=== PATIENT | male | born 1965 | race Caucasian/White ===

== ENCOUNTER 2017-09-07 13:34 | Emergency (ER) | payer OTHER ==
[2017-09-07 13:39] VITALS: BP 161/106
[2017-09-07] MEDS ORDERED: OXYCODONE-ACETAMINOPHEN 5-325 MG TABLET PO ONE (15:14)
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
--- NOTE | 2017-09-07 15:53 | RADIOLOGY REPORT (SQ) ---
EXAM DESCRIPTION: SHOULDER RIGHT 2 OR MORE VIEWS COMPLETED DATE/TIME: 09/07/2017 3:21 pm REASON FOR STUDY: pain and injury COMPARISON: None. NUMBER OF VIEWS: Three views. TECHNIQUE: Internal rotation, external rotation, and Y view images acquired of the right shoulder. LIMITATIONS: None. FINDINGS: MINERALIZATION: Normal. BONES: No acute fracture or dislocation. No worrisome bone lesions. JOINTS: No dislocation. Mild degenerative changes involving the AC joint. VISUALIZED LUNGS AND RIBS: Old right 4th rib fracture posteriorly. . SOFT TISSUES: No radiopaque foreign body. OTHER: No other significant finding. IMPRESSION: Mild degenerative changes otherwise negative right shoulder. TECHNICAL DOCUMENTATION: JOB ID: [id number] [employer]- All Rights Reserved Reading location - IP/workstation name: [email or web address]
== END 2017-09-07 16:27 | disposition home or self-care (01) ==
LOC: ER 13:34
DX: S49.92XA Unspecified injury of left shoulder and upper arm, initial encounter (principal); M25.511 Pain in right shoulder; V19.3XXA Pedal cyclist (driver) (passenger) injured in unspecified nontraffic accident, initial encounter; Y93.55 Activity, bike riding; Y92.009 Unspecified place in unspecified non-institutional (private) residence as the place of occurrence of the external cause; I10 Essential (primary) hypertension; Z87.891 Personal history of nicotine dependence
CPT/HCPCS: 99283; L3650

== ENCOUNTER 2018-11-19 23:07 | Emergency (ER) | payer OTHER ==
[2018-11-19 23:21] VITALS: BP 154/85
== END 2018-11-20 02:06 | disposition left against medical advice (07) ==
LOC: ER 23:07
DX: Z53.21 Procedure and treatment not carried out due to patient leaving prior to being seen by health care provider (principal)

== ENCOUNTER 2019-09-05 08:49 | Observation (INO) | payer OTHER ==
[2019-09-05] MEDS ORDERED: METOPROLOL TARTRATE PF/INJ 5 MG/5 ML SDV IV ONE (09:49)
[2019-09-05 10:01] LABS: ABSOLUTE BASOPHILS # (AUTO) 0.1 10^3/uL (0.0-0.2); ABSOLUTE EOSINOPHILS # (AUTO) 0.5 10^3/uL (0.0-0.6); ABSOLUTE MONOCYTES (AUTO) 0.6 10^3/uL (0.1-1.4); ABSOLUTE NEUT (AUTO) 4.9 10^3/uL (1.7-8.2); BASOPHILS % (AUTO) 0.9 % (0-2); HEMATOCRIT 46.9 % (37.9-51.0); HEMOGLOBIN 16.5 g/dL (13.5-17.0); LYMPHOCYTES % (AUTO) 33.2 % (13-45); MEAN CORPUSCULAR HEMOGLOBIN 31.6 pg (27.0-33.4); MEAN CORPUSCULAR HGB CONC 35.2 g/dL (32.0-36.0); MEAN CORPUSCULAR VOLUME 90 fl (80-97); MONOCYTES % (AUTO) 7.1 % (3-13); PLATELET COUNT 208 10^3/uL (150-450); RED BLOOD COUNT 5.23 10^6/uL (4.35-5.55); RED CELL DISTRIBUTION WIDTH 14.6 % (11.5-14.0); SEGMENTED NEUTROPHILS % (AUTO) 53.8 % (42-78); TOTAL CELLS COUNTED % (AUTO) 100 %; WHITE BLOOD COUNT 9.2 10^3/uL (4.0-10.5)
[2019-09-05 10:09] LABS: ALBUMIN 4.3 g/dL (3.5-5.0); ALKALINE PHOSPHATASE 57 U/L (38-126); ANION GAP 9 (5-19); ASPARTATE AMINO TRANSFERASE 42 U/L (17-59); BILIRUBIN,DIRECT 0.1 mg/dL (0.0-0.4); BILIRUBIN,TOTAL 0.5 mg/dL (0.2-1.3); BLOOD UREA NITROGEN 16 mg/dL (7-20); CALCIUM 9.5 mg/dL (8.4-10.2); CARBON DIOXIDE 24 mmol/L (22-30); CHLORIDE 106 mmol/L (98-107); CREATINE KINASE 97 U/L (55-170); GLUCOSE 123 mg/dL (75-110); POTASSIUM 4.1 mmol/L (3.6-5.0); TOTAL PROTEIN 7.1 g/dL (6.3-8.2)
--- NOTE | 2019-09-05 10:19 | RADIOLOGY REPORT (SQ) ---
EXAM DESCRIPTION: CHEST SINGLE VIEW COMPLETED DATE/TIME: 09/05/2019 10:06 am REASON FOR STUDY: cp COMPARISON: AP view of the chest from 06/25/2016. EXAM PARAMETERS: NUMBER OF VIEWS: One view. TECHNIQUE: An AP view of the chest was obtained. RADIATION DOSE: NA LIMITATIONS: None. FINDINGS: LUNGS AND PLEURA: No consolidation, pleural effusion or pneumothorax. MEDIASTINUM AND HILAR STRUCTURES: No mediastinal or hilar contour abnormality. HEART AND VASCULAR STRUCTURES: The cardiac silhouette is borderline enlarged. The pulmonary vasculat ure is within normal limits. BONES: No acute findings. HARDWARE: None in the chest. OTHER: No other finding. IMPRESSION: Low inspiratory lung volumes without a superimposed acute cardiopulmonary process. TECHNICAL DOCUMENTATION: JOB ID: [id number] [employer]- All Rights Reserved Reading location - IP/workstation name: [email or web address]
[2019-09-05 10:24] LABS: CREATINE KINASE MB 1.49 ng/mL (<4.55)
[2019-09-05 10:26] LABS: TROPONIN I < 0.012 ng/mL
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
[2019-09-05] MEDS ORDERED: ONDANSETRON 4 MG TAB.RAPDIS PO PRN (12:30)
[2019-09-05] MEDS ORDERED: ACETAMINOPHEN 325 MG TABLET PO PRN (12:30)
[2019-09-05] MEDS ORDERED: MAG HYDROX/AL HYDROX/SIMETH SUSP 30 ML UDCUP PO PRN (12:30)
[2019-09-05] MEDS ORDERED: ONDANSETRON HCL INJ/PF 4 MG/2 ML SDV IV PRN (12:30)
[2019-09-05 13:13] LABS: INTERNATIONAL RATION (INR) 0.97; PROTHROMBIN TIME 12.9 SEC (11.4-15.4)
--- NOTE | 2019-09-05 13:37 | RADIOLOGY REPORT (SQ) ---
EXAM DESCRIPTION: CT HEAD WITHOUT COMPLETED DATE/TIME: 09/05/2019 12:59 pm REASON FOR STUDY: headache, afib COMPARISON: 06/25/2019 TECHNIQUE: Axial images acquired through the brain without intravenous contrast. Images reviewed wi th bone, brain and subdural windows. Additional sagittal and coronal reconstructions were generated. Images stored on PACS. All CT scanners at this facility use dose modulation, iterative reconstruction, and/or weight based d osing when appropriate to reduce radiation dose to as low as reasonably achievable (ALARA). [facility]: Dose Right [facility]: CareDose [facility]: Dose Right [facility]: Teradose 4D [facility]: Smart [employer] RADIATION DOSE: CT Rad equipment meets quality standard of care and radiation dose reduction techniq ues were employed. CTDIvol: 53.2 mGy. DLP: 1017 mGy-cm. mGy. LIMITATIONS: None. FINDINGS: VENTRICLES: Normal size and contour. CEREBRUM: No masses. No hemorrhage. No midline shift. No evidence for acute infarction. Normal gra y/white matter differentiation. No areas of low density in the white matter. CEREBELLUM: No masses. No hemorrhage. No alteration of density. No evidence for acute infarction. EXTRAAXIAL SPACES: No fluid collections. No masses. ORBITS AND GLOBE: No intra- or extraconal masses. Normal contour of globe without masses. CALVARIUM: No fracture. PARANASAL SINUSES: No fluid or mucosal thickening. SOFT TISSUES: No mass or hematoma. OTHER: No other significant finding. IMPRESSION: NORMAL BRAIN CT WITHOUT CONTRAST. EVIDENCE OF ACUTE STROKE: NO. COMMENT: Quality ID # [id number]: Final reports with documentation of one or more dose reduction techniques (e.g., Automated exposure control, adjustment of the mA and/or kV according to patient size, use of iterative reconstruction technique) TECHNICAL DOCUMENTATION: JOB ID: [id number] 2010 [employer]- All Rights Reserved Reading location - IP/workstation name: [email or web address]
[2019-09-05] MEDS: METOPROLOL SUCCINATE 25 MG TAB.SR.24H PO SCH ×2 (13:56→21:20)
[2019-09-05] MEDS: ENOXAPARIN SODIUM INJ 40 MG/0.4 ML DISP.SYRIN SUBCUT SCH (13:56)
[2019-09-05] MEDS: FAMOTIDINE 20 MG TABLET PO SCH ×2 (13:56→21:21)
[2019-09-05 17:30] LABS: CREATINE KINASE MB 1.24 ng/mL (<4.55); TROPONIN I < 0.012 ng/mL
--- NOTE | 2019-09-05 18:11 | EKG REPORT ---
SEVERITY:- ABNORMAL ECG - ATRIAL FIBRILLATION, V-RATE 85-139 CONSIDER ANTEROSEPTAL INFARCT BORDERLINE T ABNORMALITIES, INFERIOR LEADS : Confirmed by: Roma George MD 05-Sep-2019 18:10:01
--- NOTE | 2019-09-05 18:11 | EKG REPORT ---
SEVERITY:- ABNORMAL ECG - ATRIAL FIBRILLATION, V-RATE 66-94 CONSIDER ANTEROSEPTAL INFARCT : Confirmed by: Roma George MD 05-Sep-2019 18:09:54
--- NOTE | 2019-09-05 19:10 | PDOC CONSULTATION ---
Consultation-Blank Consultation: CARDIOLOGY CONSULTATION by Dr. Roma George on 09/05/2019. Patient seen at 4 PM. 60 minutes spent as patient more than 50% of time spent in direct patient care. 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 CONSULT REQUESTING provider: Mr. Armando rouse: PAC, [facility] hospitalist physician. HISTORY OF PRESENT ILLNESS: Current Medications Generic Name Dose Route Start Last Admin Trade Name Freq PRN Reason Stop Dose Admin Acetaminophen 650 mg 09/05/19 12:30 Tylenol 325 Mg Tablet PO 10/05/19 12:29 Q4HP PRN FOR HEADACHE OR PAIN Al Hydrox/Mg Hydrox/Simethicone 30 ml 09/05/19 12:30 Maalox Plus Susp 30 Udcup PO 10/05/19 12:29 Q6HP PRN HEARTBURN Atorvastatin Calcium 40 mg 09/05/19 22:00 09/05/19 21:21 Lipitor 40 Mg Tablet PO 10/05/19 21:59 40 mg QHS CODY Administration Docusate Sodium 100 mg 09/06/19 10:00 Colace 100 Mg Capsule PO 10/06/19 09:59 DAILY CODY Enoxaparin Sodium 40 mg 09/05/19 12:45 09/05/19 13:56 Lovenox Inj 40 Mg/0.4 Ml Disp.Syrin SUBCUT 10/05/19 12:44 40 mg DAILY CODY Administration Famotidine 20 mg 09/05/19 12:45 09/05/19 21:21 Pepcid 20 Mg Tablet PO 10/05/19 12:44 20 mg Q12 CODY Administration Lorazepam 1 mg 09/05/19 21:14 09/05/19 21:21 Ativan 1 Mg Tablet PO 09/12/19 21:13 1 mg Q4HP PRN Administration FOR ANXIETY Metoprolol Succinate 25 mg 09/05/19 12:45 09/05/19 21:20 Toprol Xl 25 Mg Tab.Sr PO 10/05/19 12:44 25 mg Q12 CODY Administration Ondansetron HCl 4 mg 09/05/19 12:30 Zofran Odt 4 Mg Tablet PO 10/05/19 12:29 Q6HP PRN FOR NAUSEA/VOMITING Ondansetron HCl 4 mg 09/05/19 12:30 Zofran Inj/Pf 4 Mg/2 Ml Sdv IV 10/05/19 12:29 Q6HP PRN FOR NAUSEA/VOMITING Oxycodone/Acetaminophen 1 tab 09/05/19 12:30 Percocet 5-325 Mg Tablet PO 09/12/19 12:29 Q6HP PRN FOR PAIN Discontinued Medications Generic Name Dose Route Start Last Admin Trade Name Freq PRN Reason Stop Dose Admin Metoprolol Tartrate 5 mg 09/05/19 09:49 09/05/19 10:19 Lopressor Inj/Pf 5 Mg/5 Ml Sdv IV 09/05/19 09:50 5 mg NOW ONE Administration PHYSICAL EXAMINATION: The patient is well-built and well-nourished. At present in no acute distress. Selected Entries 09/05/19 17:52 Temperature 98.5 F Temperature Oral Source Pulse Rate [ 97 Right] Respiratory 16 Rate Blood Pressure 160/100 H [Right] Blood Pressure 120 Mean [Right] Blood Pressure Supine Position [Right ] O2 Sat by Pulse 98 Oximetry Oxygen Delivery Room Air Method ( includes room air) HEAD: Is atraumatic normocephalic. EYES: Pupils are equal round regular reactive to light and accommodation. There is no clinical pallor. There is no scleral icterus. External ocular movements are normal. EARS: Tympanic membranes are intact. External auditory canals are clear. NOSE: Nasal mucous membranes are not inflamed. There is no deviated nasal septum. MOUTH: Mucous membranes of mouth are moist. Tongue is moist. There is no ulcers. There is no bleeding from the gums. THROAT: There is no redness of the oropharynx. There is no exudates in the throat. SKIN: There is no petechia or ecchymosis. There is no skin rashes or skin lesions. NECK: Is supple. There is no JVD. Carotids are equal there is no bruits. There is no lymphadenopathy. There is no goiter. There is no accessory muscles of respiration in use. Trachea central. LUNGS: There is diminished air entry and prolonged expiration. On percussion there is hyperresonance. There is scattered rhonchi present. There is no rales or wheezing. There is no chest wall tenderness on palpation. HEART: S1-S2 is heard. S1 is of variable intensity. There is no S3 gallop. There is no S4 gallop. There is systolic murmur left sternal border and the apex, without radiation. There is no murmur of aortic stenosis. Prosthetic aortic valve click heard crisply. There is no aortic regurgitation murmur.. There is no rub. ABDOMEN: Is Nontender. There is no hepatosplenomegaly. Bowel sounds are well heard. EXTREMITIES: Femorals are deep. Femorals are slightly diminished. There is no femoral bruits. There is no pedal edema. There is no DVT or cellulitis. Leg pulses are diminished. There is no cyanosis or clubbing. Capillary refill is normal. There is no calf tenderness. NOVELTY DIPPER: The patient is conscious awake alert oriented x3 with no focal deficits. PSYCHIATRIC: The patient judgment and insight are intact her affect is normal. She shows atrial fibrillation with initially rapid ventricular response. Narrow QRS complexes. No delta waves. Subsequent EKG shows atrial fibrillation with controlled ventricular response. Narrow QRS complexes with no evidence of pr eexcitation. Labs- Entire Visit 09/05/19 09/05/19 09/05/19 09:17 09:17 09:17 WBC 9.2 RBC 5.23 Hgb 16.5 Hct 46.9 MCV 90 MCH 31.6 MCHC 35.2 RDW 14.6 H Plt Count 208 Lymph % (Auto) 33.2 [place] % (Auto) 7.1 Eos % (Auto) 5.0 Baso % (Auto) 0.9 Absolute Neuts (auto) 4.9 Absolute Lymphs (auto) 3.0 Absolute Monos (auto) 0.6 Absolute Eos (auto) 0.5 Absolute Basos (auto) 0.1 Seg Neutrophils % 53.8 PT INR Sodium 139.3 Potassium 4.1 Chloride 106 Carbon Dioxide 24 Anion Gap 9 BUN 16 Creatinine 0.58 Est GFR ( Amer) > 60 Est GFR (MDRD) Non-Af > 60 Glucose 123 H Calcium 9.5 Total Bilirubin 0.5 Direct Bilirubin 0.1 Neonat Total Bilirubin Not Reportable Neonat Direct Bilirubin Not Reportable Neonat Indirect Bili Not Reportable AST 42 ALT 43 Alkaline Phosphatase 57 Creatine Kinase 97 CK-MB (CK-2) 1.49 Troponin I < 0.012 Total Protein 7.1 Albumin 4.3 TSH Urine Color Urine Appearance Urine pH Ur Specific [place] Urine Protein Urine Glucose (UA) Urine Ketones Urine Blood Urine Nitrite Urine Bilirubin Urine Urobilinogen Ur Leukocyte Esterase Urine WBC (Auto) Urine RBC (Auto) Squamous Epi Cells Auto Urine Mucus (Auto) Urine Ascorbic Acid 09/05/19 09/05/19 09/05/19 09:17 09:17 12:19 WBC RBC Hgb Hct MCV MCH MCHC RDW Plt Count Lymph % (Auto) [place] % (Auto) Eos % (Auto) Baso % (Auto) Absolute Neuts (auto) Absolute Lymphs (auto) Absolute Monos (auto) Absolute Eos (auto) Absolute Basos (auto) Seg Neutrophils % PT 12.9 INR 0.97 Sodium Potassium Chloride Carbon Dioxide Anion Gap BUN Creatinine Est GFR ( Amer) Est GFR (MDRD) Non-Af Glucose Calcium Total Bilirubin Direct Bilirubin Neonat Total Bilirubin Neonat Direct Bilirubin Neonat Indirect Bili AST ALT Alkaline Phosphatase Creatine Kinase CK-MB (CK-2) Troponin I < 0.012 Total Protein Albumin TSH 2.58 Urine Color Urine Appearance Urine pH Ur Specific [place] Urine Protein Urine Glucose (UA) Urine Ketones Urine Blood Urine Nitrite Urine Bilirubin Urine Urobilinogen Ur Leukocyte Esterase Urine WBC (Auto) Urine RBC (Auto) Squamous Epi Cells Auto Urine Mucus (Auto) Urine Ascorbic Acid 09/05/19 09/05/19 16:38 17:10 WBC RBC Hgb Hct MCV MCH MCHC RDW Plt Count Lymph % (Auto) [place] % (Auto) Eos % (Auto) Baso % (Auto) Absolute Neuts (auto) Absolute Lymphs (auto) Absolute Monos (auto) Absolute Eos (auto) Absolute Basos (auto) Seg Neutrophils % PT INR Sodium Potassium Chloride Carbon Dioxide Anion Gap BUN Creatinine Est GFR ( Amer) Est GFR (MDRD) Non-Af Glucose Calcium Total Bilirubin Direct Bilirubin Neonat Total Bilirubin Neonat Direct Bilirubin Neonat Indirect Bili AST ALT Alkaline Phosphatase Creatine Kinase CK-MB (CK-2) 1.24 Troponin I < 0.012 Total Protein Albumin TSH Urine Color YELLOW Urine Appearance SLIGHTLY-CLOUDY Urine pH 6.0 Ur Specific [place] 1.021 Urine Protein NEGATIVE Urine Glucose (UA) NEGATIVE Urine Ketones NEGATIVE Urine Blood NEGATIVE Urine Nitrite NEGATIVE Urine Bilirubin NEGATIVE Urine Urobilinogen NEGATIVE Ur Leukocyte Esterase NEGATIVE Urine WBC (Auto) 1 Urine RBC (Auto) 2 Squamous Epi Cells Auto <1 Urine Mucus (Auto) MANY Urine Ascorbic Acid NEGATIVE Chest X-Ray 09/05/19 00:00 IMPRESSION: Low inspiratory lung volumes without a superimposed acute cardiopulmonary process. Head CT 09/05/19 12:44 IMPRESSION: NORMAL BRAIN CT WITHOUT CONTRAST. EVIDENCE OF ACUTE STROKE: NO. Discussed with the patient and the patient's wi the indications and benefits and complications of anticoagulation. Discussed Coumadin versus newer oral anticoagulation agents. The risks of bleeding with both have been discussed. Also have discussed with the Coumadin if the INR should be elevated it can be reversed with fresh frozen plasma and vitamin K. With the newer anticoagulation agents there is no reversal agent. Also have discussed that with newer anticoagulation agent the patient has no dietary restriction and most of the medication that I used will not counteract with it. As opposed to Coumadin where diet adherence is very important and interactions with other medications have all been discussed. Will wait till the patient b lood pressure is well controlled prior to starting Eliquis which the patient has agreed to be on. IMPRESSION/RECOMMENDATION: 1. New onset atrial fibrillation: Continue beta-dewayne. The patient's c orrected Damien vas 2 score is 1 hence chronic anticoagulation indicated. Will start Eliquis once the patient blood pressure is controlled. 2. Hypertension: Blood pressure not very well controlled. Increase antihypertensives. 3. Chest pressure/burning: No acute EKG changes of myocardial ischemia, and cardiac enzymes so far negative. 4. 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 Medications reviewed. Medication regimen and management plan discussed with the attending provider. Medical decision making is of high complexity. 60 minutes spent as patient more than 50% of time spent in direct patient care.
[2019-09-05 20:38] LABS: APPEARANCE,URINE SLIGHTLY-CLOUDY; BILIRUBIN,URINE NEGATIVE (NEGATIVE); COLOR,URINE YELLOW; GLUCOSE, URINE NEGATIVE (NEGATIVE); KETONES,URINE NEGATIVE (NEGATIVE); LEUKOCYTE ESTERASE,URINE NEGATIVE (NEGATIVE); NITRITE,URINE NEGATIVE (NEGATIVE); PROTEIN,URINE NEGATIVE (NEGATIVE); URINE SPECIFIC GRAVITY 1.021; UROBILINOGEN,URINE NEGATIVE mg/dL (<2.0)
[2019-09-05] MEDS: ATORVASTATIN CALCIUM 40 MG TABLET PO SCH (21:21)
[2019-09-05] MEDS: LORAZEPAM 1 MG TABLET PO PRN (21:21)
[2019-09-06] MEDS ORDERED: HYDRALAZINE HCL INJ/PF 20 MG/1 ML SDV IV PRN (00:53)
[2019-09-06] MEDS: LISINOPRIL 10 MG TABLET PO SCH ×2 (01:27→09:42)
[2019-09-06 06:48] LABS: ABSOLUTE EOSINOPHILS # (AUTO) 0.3 10^3/uL (0.0-0.6); ABSOLUTE LYMPHOCYTES (AUTO) 2.6 10^3/uL (0.5-4.7); ABSOLUTE MONOCYTES (AUTO) 0.5 10^3/uL (0.1-1.4); ABSOLUTE NEUT (AUTO) 4.8 10^3/uL (1.7-8.2); BASOPHILS % (AUTO) 0.5 % (0-2); HEMATOCRIT 43.9 % (37.9-51.0); HEMOGLOBIN 15.2 g/dL (13.5-17.0); LYMPHOCYTES % (AUTO) 31.2 % (13-45); MEAN CORPUSCULAR HEMOGLOBIN 31.7 pg (27.0-33.4); MEAN CORPUSCULAR HGB CONC 34.7 g/dL (32.0-36.0); MEAN CORPUSCULAR VOLUME 92 fl (80-97); MONOCYTES % (AUTO) 5.9 % (3-13); PLATELET COUNT 185 10^3/uL (150-450); RED CELL DISTRIBUTION WIDTH 14.7 % (11.5-14.0); SEGMENTED NEUTROPHILS % (AUTO) 58.4 % (42-78); TOTAL CELLS COUNTED % (AUTO) 100 %; WHITE BLOOD COUNT 8.2 10^3/uL (4.0-10.5)
[2019-09-06 07:07] LABS: ANION GAP 9 (5-19); BLOOD UREA NITROGEN 20 mg/dL (7-20); CALCIUM 8.9 mg/dL (8.4-10.2); CARBON DIOXIDE 26 mmol/L (22-30); CHLORIDE 103 mmol/L (98-107); GLUCOSE 107 mg/dL (75-110); POTASSIUM 4.5 mmol/L (3.6-5.0)
[2019-09-06] MEDS ORDERED: METOPROLOL TARTRATE 25 MG TABLET PO ONE (08:52)
[2019-09-06] MEDS: FAMOTIDINE 20 MG TABLET PO SCH ×2 (09:42→22:09)
[2019-09-06] MEDS: DOCUSATE SODIUM 100 MG CAPSULE PO SCH (09:42)
[2019-09-06] MEDS: ENOXAPARIN SODIUM INJ 40 MG/0.4 ML DISP.SYRIN SUBCUT SCH (09:43)
[2019-09-06] MEDS: METOPROLOL TARTRATE 25 MG TABLET PO SCH ×2 (11:12→22:08)
--- NOTE | 2019-09-06 14:53 | PDOC PROGRESS REPORT ---
Subjective Progress Note for:: 09/06/19 Subjective:: This is a 53-year-old male with a prior history of WPW with prior ablation who presented with palpitations. Patient was found to have a new onset atrial fibrillation with RVR. He was given IV metoprolol in the ER. Cardiology was ALSO consulted. No acute event overnight. Upon encounter, patient appears comfortable on room air. He says he feels better this morning. Denies chest pain. He is still in A. fib heart rate running in the low 100s. He was given a dose of p.o. Lopressor 25 mg earlier this morning and did improve down to the 90s. Will start patient on scheduled p.o. Lopressor. Also discussed anticoagulation in length with patient and family on bedside. Discussed benefits of stroke reduction and risk of bleeding. Discussed options including Coumadin and different NOACs. They verbalized they want to do their own research first and do more reading before they give us a final decision about anticoagulation. Reason For Visit: ATRIAL FIB, HISTORY OF [id number], Physical Exam Vital Signs: Temp Pulse Resp BP Pulse Ox 98.0 F 67 16 144/88 H 99 09/06/19 12:00 09/06/19 14:00 09/06/19 12:00 09/06/19 12:00 09/06/19 12:00 Intake & Output 09/05/19 09/06/19 09/07/19 06:59 06:59 06:59 Intake Total 500 Balance 500 Weight 252 lb 13.923 oz General appearance: PRESENT: no acute distress, well-developed, well-nourished Head exam: PRESENT: atraumatic, normocephalic Eye exam: PRESENT: conjunctiva pink, EOMI, PERRLA. ABSENT: scleral icterus Ear exam: PRESENT: normal external ear exam Mouth exam: PRESENT: moist, tongue midline Neck exam: ABSENT: carotid bruit, JVD, lymphadenopathy, thyromegaly Respiratory exam: PRESENT: clear to auscultation garry. ABSENT: rales, rhonchi, wheezes Cardiovascular exam: PRESENT: irregular rhythm, RRR, tachycardia. ABSENT: diastolic murmur, rubs Pulses: PRESENT: normal dorsalis pedis pul GI/Abdominal exam: PRESENT: normal bowel sounds, soft. ABSENT: distended, guarding, mass, organolmegaly, rebound, tenderness Rectal exam: PRESENT: deferred Extremities exam: PRESENT: full ROM. ABSENT: calf tenderness, clubbing, pedal edema Neurological exam: PRESENT: alert, awake, oriented to person, oriented to place, oriented to time, oriented to situation, CN II-XII grossly intact. ABSENT: motor sensory deficit Results Laboratory Results: 09/06/19 05:47 09/06/19 05:47 09/05/19 09/06/19 09/06/19 17:10 05:47 05:47 WBC 8.2 RBC 4.80 Hgb 15.2 Hct 43.9 MCV 92 MCH 31.7 MCHC 34.7 RDW 14.7 H Plt Count 185 Seg Neutrophils % 58.4 Sodium 137.7 Potassium 4.5 Chloride 103 Carbon Dioxide 26 Anion Gap 9 BUN 20 Creatinine 0.74 Est GFR ( Amer) > 60 Glucose 107 Calcium 8.9 Magnesium 2.1 Urine Color YELLOW Urine Appearance SLIGHTLY-CLOUDY Urine pH 6.0 Ur Specific [place] 1.021 Urine Protein NEGATIVE Urine Glucose (UA) NEGATIVE Urine Ketones NEGATIVE Urine Blood NEGATIVE Urine Nitrite NEGATIVE Ur Leukocyte Esterase NEGATIVE Urine WBC (Auto) 1 Urine RBC (Auto) 2 09/05/19 09/05/19 09/05/19 09:17 09:17 12:19 Creatine Kinase 97 CK-MB (CK-2) 1.49 Troponin I < 0.012 < 0.012 09/05/19 16:38 Creatine Kinase CK-MB (CK-2) 1.24 Troponin I < 0.012 Impressions: Chest X-Ray 09/05/19 00:00 IMPRESSION: Low inspiratory lung volumes without a superimposed acute cardiopulmonary process. Head CT 09/05/19 12:44 IMPRESSION: NORMAL BRAIN CT WITHOUT CONTRAST. EVIDENCE OF ACUTE STROKE: NO. Assessment and Plan - Diagnosis (1) Atrial fibrillation with RVR Is this a current diagnosis for this admission?: Yes Plan: Will start patient on scheduled p.o. Lopressor. Also discussed anticoagulation in length with patient and family on bedside. Discussed benefits of stroke reduction and risk of bleeding. Discussed options including Coumadin and different NOACs. They verbalized they want to do their own research first and do more reading before they give us a final decision about anticoagulation. (2) History of Jbhvg-Qahsfhmxp-Hclus (WPW) syndrome Is this a current diagnosis for this admission?: Yes - Time Time Spent with patient: 25-34 minutes
--- NOTE | 2019-09-06 17:06 | EKG REPORT ---
SEVERITY:- ABNORMAL ECG - ATRIAL FIBRILLATION : Confirmed by: Roma George MD 06-Sep-2019 17:05:16
--- NOTE | 2019-09-06 17:06 | EKG REPORT ---
SEVERITY:- ABNORMAL ECG - ATRIAL FIBRILLATION BORDERLINE R WAVE PROGRESSION, ANTERIOR LEADS : Confirmed by: Roma George MD 06-Sep-2019 17:05:09
--- NOTE | 2019-09-06 17:22 | XCELERA REPORT ---
[address] [address] Transthoracic Echocardiogram Report Name: MADDIE WALSH Age: 53 yrs Gender: Male : 1965 [facility]: 09[facility]06/[facility] 03:42 PM Height: 72 in Weight: 252 lb BSA: 2.4 m2 Procedure: A two-dimensional transthoracic echocardiogram with color flow and Doppler was performed. The study was technically difficult with many images being suboptimal in quality. Reason For Study: palpitations, SOB, afib, Dr. Elizabeth aware History: Atrial Fibrillation / SOB. Ordering Physician: CAROLINE MALIK Performed By: Rachana Acosta Interpretation Summary The left ventricle is normal in size. There is mild concentric left ventricular hypertrophy. Left ventricular systolic function is normal. LV diastolic function could not be adequately assessed due to atrial fibrilation. LV EF is Greater than 60% There is no thrombus. No ASD ,VSD or PFO seen. The right ventricle is normal in size and function. The right atrium is normal. The left atrium is borderline dilated. The thickening of interatrial septum suggests lipomatous hypertrophy. There is no evidence of mitral valve prolapse. There is no vegetation seen on the mitral valve. There is no mitral valve stenosis. There is a trace amount of mitral regurgitation There is no aortic valvular vegetation. There is no aortic valve stenosis There is no LVOT obstruction. No aortic regurgitation is present. There is no tricuspid stenosis. There is a trace amount of tricuspid regurgitation Tricuspid regurgitation jet envelope not well defined to measure RV systolic pressure accurately. There is no pulmonic valvular stenosis. There is a trace amount of pulmonic regurgitation The aortic root is normal size. There is no pericardial effusion. MMode/2D Measurements & Calculations RVDd: 3.0 cm LVIDd: 4.1 cm FS: 27.4 % Ao root diam: 3.2 cm IVSd: 1.2 cm LVIDs: 3.0 cm EDV(Teich): 73.0 ml Ao root area: 8.0 cm2 LVPWd: 1.3 cm ESV(Teich): 33.8 ml LA dimension: 4.1 cm EF(Teich): 53.7 % Doppler Measurements & Calculations MV E max neal: MV P1/2t max neal: Ao V2 max: LV V1 max P.3 cm/sec 122.2 cm/sec 117.3 cm/sec 4.6 mmHg MV A max neal: MV P1/2t: 47.4 msec Ao max P.5 mmHgLV V1 max: 43.4 cm/sec MVA(P1/2t): 4.6 cm2 107.1 cm/sec MV E/A: 2.2 MV dec slope: 754.2 cm/sec2 MV dec time: 0.21 sec PA V2 max: PI end-d neal: MV P1/2t-pr_phl: 73.1 cm/sec 177.8 cm/sec 47.4 msec PA max P.1 mmHg Left Ventricle The left ventricle is normal in size. There is mild concentric left ventricular hypertrophy. Left ventricular systolic function is normal. LV EF is Greater than 60%. LV diastolic function could not be adequately assessed due to atrial fibrilation. The left ventricular wall motion is normal. There is no thrombus. No ASD ,VSD or PFO seen. Right Ventricle The right ventricle is normal in size and function. Atria The right atrium is normal. The left atrium is borderline dilated. The thickening of interatrial septum suggests lipomatous hypertrophy. Mitral Valve There is no evidence of mitral valve prolapse. There is no vegetation seen on the mitral valve. There is no mitral valve stenosis. There is a trace amount of mitral regurgitation. Aortic Valve There is no aortic valvular vegetation. There is no aortic valve stenosis. There is no LVOT obstruction. No aortic regurgitation is present. Tricuspid Valve There is no tricuspid stenosis. There is a trace amount of tricuspid regurgitation. Tricuspid regurgitation jet envelope not well defined to measure RV systolic pressure accurately. Pulmonic Valve There is no pulmonic valvular stenosis. There is a trace amount of pulmonic regurgitation. Great Vessels The aortic root is normal size. Effusions There is no pericardial effusion. : CAROLINE MALIK [place]
[2019-09-06] MEDS: ATORVASTATIN CALCIUM 40 MG TABLET PO SCH (22:08)
[2019-09-06] MEDS ORDERED: LISINOPRIL 10 MG TABLET PO ONE (23:19)
[2019-09-06] MEDS ORDERED: LISINOPRIL 10 MG TABLET PO SCH (23:30)
[2019-09-07] MEDS ORDERED: LISINOPRIL 10 MG TABLET PO ONE (06:00)
[2019-09-07] MEDS ORDERED: METOPROLOL TARTRATE 25 MG TABLET PO SCH (10:00)
[2019-09-07] MEDS: LISINOPRIL 10 MG TABLET PO SCH ×2 (10:29→21:23)
[2019-09-07] MEDS: DOCUSATE SODIUM 100 MG CAPSULE PO SCH (10:29)
[2019-09-07] MEDS: ENOXAPARIN SODIUM INJ 40 MG/0.4 ML DISP.SYRIN SUBCUT SCH (10:29)
[2019-09-07] MEDS: FAMOTIDINE 20 MG TABLET PO SCH ×2 (10:29→21:23)
[2019-09-07] MEDS: METOPROLOL TARTRATE 50 MG TABLET PO SCH ×2 (10:29→21:22)
--- NOTE | 2019-09-07 14:54 | RADIOLOGY REPORT (SQ) ---
EXAM DESCRIPTION: CTA HEAD COMPLETED DATE/TIME: 09/07/2019 2:12 pm REASON FOR STUDY: headache,fm hx of aneurysm,will start on NOAC COMPARISON: 09/05/2019 TECHNIQUE: Post IV contrast scanning, thin section axial imaging through the brain to evaluate the a rterial structures. Source and MIP images are saved and reviewed on PACS. Advanced 3D imaging as volume-rendering, MIPs, SSD performed? yes All CT scanners at this facility use dose modulation, iterative reconstruction, and/or weight based d osing when appropriate to reduce radiation dose to as low as reasonably achievable (ALARA). [facility]: Dose Right [facility]: CareDose [facility]: Dose Right [facility]: Teradose 4D [facility]: [employer] CONTRAST TYPE AND DOSE: contrast/concentration: Isovue 350.00 mg/ml; Total Contrast Delivered: 70.0 ml; Total Saline Delivered: 75.0 ml RENAL FUNCTION: Not available at time of dictation. LIMITATIONS: None. FINDINGS: [place]: The anterior, middle, posterior cerebral arteries are all patent. No ev idence of aneurysm or focal stenosis. POSTERIOR CIRCULATION: The distal vertebral arteries are patent as is the basilar artery. No aneurysm . BRAIN: No gross enhancing lesions as visualized. The superior cerebral hemispheres are not included in the field of view. BONES: Intact as visualized. SINUSES: No fluid or mucosal thickening. OTHER: No other significant finding. IMPRESSION: NO CTA EVIDENCE OF STENOSIS OR ANEURYSM OF THE [place]. TECHNICAL DOCUMENTATION: JOB ID: [id number] Quality ID # [id number]: Final reports with documentation of one or more dose reduction techniques (e.g., Au tomated exposure control, adjustment of the mA and/or kV according to patient size, use of iterative reconstruction technique) 2010 [employer]- All Rights Reserved Reading location - IP/workstation name: [email or web address]
[2019-09-07] MEDS: OXYCODONE-ACETAMINOPHEN 5-325 MG TABLET PO PRN (15:54)
--- NOTE | 2019-09-07 16:01 | PDOC PROGRESS REPORT ---
Subjective Progress Note for:: 09/07/19 Subjective:: This is a 53-year-old male with a prior history of WPW with prior ablation who presented with palpitations. Patient was found to have a new onset atrial fibrillation with RVR. He was given IV metoprolol in the ER. Cardiology was ALSO consulted. 09/06: No acute event overnight. Upon encounter, patient appears comfortable on room air. He says he feels better this morning. Denies chest pain. He is still in A. fib heart rate running in the low 100s. He was given a dose of p.o. Lopressor 25 mg earlier this morning and did improve down to the 90s. Will start patient on scheduled p.o. Lopressor. Also discussed anticoagulation in length with patient and family on bedside. Discussed benefits of stroke reduction and risk of bleeding. Discussed options including Coumadin and different NOACs. They verbalized they want to do their own research first and do more reading before they give us a final decision about anticoagulation. 09/07: No acute event overnight. Patient examined together with senior oracle database administrator this morning. Patient remains in A. fib with heart rate running in the low 100s. Will increase Lopressor to 50 mg every 12. Patient says they doen their research and prefer to be started on Xarelto. However he verbalized that they are very concerned because a sibling from a ruptured intracranial aneurysm. He also relays that he has been having bright red bloody stools recently. His hemoglobin has been stable. He does say that he has not had a colonoscopy done before. Otherwise, he denies acute symptoms. Denies chest pain or shortness of breath. We will start and later discharge patient on Xarelto after screening for intracranial aneurysm and colonoscopy. Reason For Visit: ATRIAL FIB, HISTORY OF [id number], Physical Exam Vital Signs: Temp Pulse Resp BP Pulse Ox 97.9 F 100 18 135/98 H 98 09/07/19 11:39 09/07/19 14:00 09/07/19 11:39 09/07/19 11:39 09/07/19 11:39 Intake & Output 09/06/19 09/07/19 09/08/19 06:59 06:59 06:59 Intake Total 500 1300 550 Balance 500 1300 550 Weight 252 lb 13.923 oz 252 lb 3.341 oz General appearance: PRESENT: no acute distress, well-developed, well-nourished Head exam: PRESENT: atraumatic, normocephalic Eye exam: PRESENT: conjunctiva pink, EOMI, PERRLA. ABSENT: scleral icterus Ear exam: PRESENT: normal external ear exam Mouth exam: PRESENT: moist, tongue midline Neck exam: ABSENT: carotid bruit, JVD, lymphadenopathy, thyromegaly Respiratory exam: PRESENT: clear to auscultation garry. ABSENT: rales, rhonchi, wheezes Cardiovascular exam: PRESENT: RRR. ABSENT: diastolic murmur, rubs, systolic murmur Pulses: PRESENT: normal dorsalis pedis pul GI/Abdominal exam: PRESENT: normal bowel sounds, soft. ABSENT: distended, guarding, mass, organolmegaly, rebound, tenderness Rectal exam: PRESENT: deferred Extremities exam: PRESENT: full ROM. ABSENT: calf tenderness, clubbing, pedal edema Neurological exam: PRESENT: alert, awake, oriented to person, oriented to place, oriented to time, oriented to situation, CN II-XII grossly intact. ABSENT: motor sensory deficit Results Laboratory Results: 09/06/19 05:47 09/06/19 05:47 09/05/19 09/05/19 09/05/19 09:17 09:17 12:19 Creatine Kinase 97 CK-MB (CK-2) 1.49 Troponin I < 0.012 < 0.012 09/05/19 16:38 Creatine Kinase CK-MB (CK-2) 1.24 Troponin I < 0.012 Impressions: Chest X-Ray 09/05/19 00:00 IMPRESSION: Low inspiratory lung volumes without a superimposed acute cardiopulmonary process. Head CT 09/05/19 12:44 IMPRESSION: NORMAL BRAIN CT WITHOUT CONTRAST. EVIDENCE OF ACUTE STROKE: NO. Head CTA 09/07/19 00:00 IMPRESSION: NO CTA EVIDENCE OF STENOSIS OR ANEURYSM OF THE [place]. Assessment and Plan - Diagnosis (1) Atrial fibrillation with RVR Is this a current diagnosis for this admission?: Yes Plan: 09/06: Will start patient on scheduled p.o. Lopressor. Also discussed anti coagulation in length with patient and family on bedside. Discussed benefits of stroke reduction and risk of bleeding. Discussed options including Coumadin and different NOACs. They verbalized they want to do their own research first and do more reading before they give us a final decision about anticoagulation. 09/07: Increase Lopressor to 50 mg every 12. Will start Xarelto after screening for intracranial aneurysm and colonoscopy results. (2) History of Rkrmb-Zhspzoqga-Tetfr (WPW) syndrome Is this a current diagnosis for this admission?: Yes - Time Time Spent with patient: 25-34 minutes
[2019-09-07] MEDS: ATORVASTATIN CALCIUM 40 MG TABLET PO SCH (21:22)
[2019-09-07] MEDS ORDERED: NICOTINE 14 MG/24 HR PATCH.TD24 TD ONE (21:30)
[2019-09-07] MEDS: LORAZEPAM 1 MG TABLET PO PRN (22:31)
[2019-09-08] MEDS ORDERED: POLYETHYLENE GLYCOL 3350 POWDER 17 GM/1 PACKET PO ONE ×2 (00:52→03:15)
--- NOTE | 2019-09-08 05:20 | PDOC CONSULTATION ---
Consultation Consult Date: 09/08/19 Provider Consulted: SURGICAL SURGICALIST Consult reason:: Bright red blood per rectum History of Present Illness Admission Date/PCP: 09/05/19 11:[facility] History of Present Illness: MADDIE WALSH is a 53 year old male with a history of bright red blood per rectum, occurring at bowel movements. The patient is seen in consultation at the request of the hospitalist service. The patient reports that approximately once per week he finds small amounts of blood with his bowel movements. This is been ongoing for many months. The patient has no pain associated with this. It always occurs with bowel movements. The patient denies constipation. He has never had a colonoscopy. He is unaware of any hemorrhoids that he may or may not have. The patient was recently diagnosed with A. fib. Recent interventions have failed to convert him back to a normal sinus rhythm. The patient will be started on anticoagulant therapy. Surgery has been consulted for colonoscopy as well as management of hemorrhoids prior to initiation of anticoagulant therapy. Currently the patient denies chest pain, shortness of breath, fevers, chills, nausea, vomiting, headache, dizziness, orthostasis, blurry vision, fatigue, or malaise. Past Medical History Cardiac Medical History: Reports: Myocardial Infarction, Hypertension Musculoskeltal Medical History: Reports: Arthritis Past Surgical History Past Surgical History: Reports: Orthopedic Surgery, Other - WPW ablation Social History Smoking Status: Current Every Day Smoker Cigarettes Packs Per Day: 10 Electronic Cigarette use?: No Frequency of Alcohol Use: Occasional Hx Recreational Drug Use: No Drugs: None Hx Prescription Drug Abuse: No Family History Family History: Reviewed & Not Pertinent Parental Family History Reviewed: Yes Children Family History Reviewed: Yes Sibling(s) Family History Reviewed.: Yes Medication/Allergy Home Medications: Lisinopril/Hydrochlorothiazide [Lisinopril-Hctz 20-25 mg Tab] 1 each PO DAILY 09/05/19 Meloxicam [Mobic] 15 mg PO QAM 09/05/19 Allergies/Adverse Reactions: No Known Allergies Allergy (Verified 09/07/17 13:35) Review of Systems Constitutional: ABSENT: anorexia, chills, fatigue Eyes: ABSENT: visual disturbances Ears: ABSENT: hearing changes Nose, Mouth, and Throat: ABSENT: mouth pain, sore throat Cardiovascular: ABSENT: chest pain Respiratory: ABSENT: cough Gastrointestinal: PRESENT: hematochezia - Occasional with bowel movements. ABSENT: abdominal pain, bloating, nausea, vomiting Genitourinary: ABSENT: dysuria Musculoskeletal: ABSENT: back pain Integumentary: ABSENT: diaphoresis, pruritus, rash Neurological: ABSENT: confusion, convulsions, dizziness Psychiatric: ABSENT: anxiety, depression Endocrine: ABSENT: cold intolerance, heat intolerance Hematologic/Lymphatic: ABSENT: easy bleeding, easy bruising Physical Exam Vital Signs: Temp Pulse Resp BP Pulse Ox 97.9 F 100 18 135/98 H 98 09/07/19 11:39 09/07/19 14:00 09/07/19 11:39 09/07/19 11:39 09/07/19 11:39 Intake & Output 09/06/19 09/07/19 09/08/19 06:59 06:59 06:59 Intake Total 500 1300 550 Balance 500 1300 550 Weight 114.7 kg 114.4 kg General appearance: PRESENT: no acute distress, cooperative Head exam: PRESENT: atraumatic, normocephalic Eye exam: PRESENT: EOMI, PERRLA. ABSENT: scleral icterus Mouth exam: PRESENT: moist, neck supple Neck exam: ABSENT: meningismus, tenderness, thyromegaly, tracheal deviation Respiratory exam: PRESENT: unlabored. ABSENT: chest wall tenderness, tachypnea Cardiovascular exam: PRESENT: other - Irregular. ABSENT: tachycardia Vascular exam: PRESENT: normal capillary refill. ABSENT: pallor GI/Abdominal exam: PRESENT: soft. ABSENT: distended, firm, rigid, tenderness Rectal exam: PRESENT: deferred Extremities exam: ABSENT: clubbing Musculoskeletal exam: ABSENT: deformity Neurological exam: PRESENT: alert, awake, oriented to person, oriented to place, oriented to time, oriented to situation, CN II-XII grossly intact Psychiatric exam: ABSENT: agitated, anxious, depressed Focused psych exam: ABSENT: delusional Skin exam: ABSENT: cyanosis, erythema, jaundice Results Laboratory Results: 09/06/19 05:47 09/06/19 05:47 09/05/19 09/05/19 09/05/19 09:17 09:17 12:19 Creatine Kinase 97 CK-MB (CK-2) 1.49 Troponin I < 0.012 < 0.012 09/05/19 16:38 Creatine Kinase CK-MB (CK-2) 1.24 Troponin I < 0.012 Impressions: Chest X-Ray 09/05/19 00:00 IMPRESSION: Low inspiratory lung volumes without a superimposed acute cardiopulmonary process. Head CT 09/05/19 12:44 IMPRESSION: NORMAL BRAIN CT WITHOUT CONTRAST. EVIDENCE OF ACUTE STROKE: NO. Head CTA 09/07/19 00:00 IMPRESSION: NO CTA EVIDENCE OF STENOSIS OR ANEURYSM OF THE [place]. Assessment & Plan - Diagnosis (1) Bright red blood per rectum Is this a current diagnosis for this admission?: Yes - Plan Summary Plan Summary: This is a 53-year-old male with bright red blood per rectum. The patient has never had a colonoscopy. He has frequent rectal bleeding that is painless and small in volume. I have recommended the patient undergo colonoscopy to ensure that he does not have a colonic malignancy. At the time of colonoscopy, rubber band ligation can be performed if internal hemorrhoids were found. It would be prudent to hold anticoagulation until his bleeding issues are resolved. Plan for bowel prep and colonoscopy in the near future. The patient is requesting that the procedure be done before he is discharged home. This is reasonable.
[2019-09-08] MEDS: OXYCODONE-ACETAMINOPHEN 5-325 MG TABLET PO PRN ×3 (06:14→18:54)
[2019-09-08] MEDS: NICOTINE 14 MG/24 HR PATCH.TD24 TD SCH (09:50)
[2019-09-08] MEDS: LISINOPRIL 10 MG TABLET PO SCH ×2 (09:51→22:00)
[2019-09-08] MEDS: METOPROLOL TARTRATE 50 MG TABLET PO SCH ×2 (09:51→22:00)
[2019-09-08] MEDS: FAMOTIDINE 20 MG TABLET PO SCH ×2 (09:51→22:00)
[2019-09-08] MEDS: ENOXAPARIN SODIUM INJ 40 MG/0.4 ML DISP.SYRIN SUBCUT SCH (09:51)
[2019-09-08] MEDS: BISACODYL 5 MG TABEC PO SCH ×2 (09:51→17:22)
[2019-09-08] MEDS: DOCUSATE SODIUM 100 MG CAPSULE PO SCH (09:51)
--- NOTE | 2019-09-08 15:26 | PDOC PROGRESS REPORT ---
Subjective Progress Note for:: 09/08/19 Subjective:: This is a 53-year-old male with a prior history of WPW with prior ablation who presented with palpitations. Patient was found to have a new onset atrial fibrillation with RVR. He was given IV metoprolol in the ER. Cardiology was ALSO consulted. 09/06: No acute event overnight. Upon encounter, patient appears comfortable on room air. He says he feels better this morning. Denies chest pain. He is still in A. fib heart rate running in the low 100s. He was given a dose of p.o. Lopressor 25 mg earlier this morning and did improve down to the 90s. Will start patient on scheduled p.o. Lopressor. Also discussed anticoagulation in length with patient and family on bedside. Discussed benefits of stroke reduction and risk of bleeding. Discussed options including Coumadin and different NOACs. They verbalized they want to do their own research first and do more reading before they give us a final decision about anticoagulation. 09/07: No acute event overnight. Patient examined together with radio journalist this morning. Patient remains in A. fib with heart rate running in the low 100s. Will increase Lopressor to 50 mg every 12. Patient says they doen their research and prefer to be started on Xarelto. However he verbalized that they are very concerned because a sibling from a ruptured intracranial aneurysm. He also relays that he has been having bright red bloody stools recently. His hemoglobin has been stable. He does say that he has not had a colonoscopy done before. Otherwise, he denies acute symptoms. Denies chest pain or shortness of breath. We will start and later discharge patient on Xarelto after screening for intracranial aneurysm and colonoscopy. 09/08: No acute event overnight. Patient's heart rate has improved to the 90s after increase in p.o. Lopressor. Denies chest pain or shortness of breath. Patient is scheduled for colonoscopy tomorrow after which she will be started on Xarelto and possibly discharge. Reason For Visit: ATRIAL FIB, HISTORY OF [id number], Physical Exam Vital Signs: Temp Pulse Resp BP Pulse Ox 97.8 F 87 18 117/83 97 09/08/19 12:09/08/19 12:09/08/19 12:09/08/19 12:09/08/19 12:26 Intake & Output 09/07/19 09/08/19 09/09/19 06:59 06:59 06:59 Intake Total 1300 1999 820 Balance 1300 1999 820 Weight 252 lb 3.341 oz 250 lb 0.067 oz General appearance: PRESENT: no acute distress, well-developed, well-nourished Head exam: PRESENT: atraumatic, normocephalic Eye exam: PRESENT: conjunctiva pink, EOMI, PERRLA. ABSENT: scleral icterus Ear exam: PRESENT: normal external ear exam Mouth exam: PRESENT: moist, tongue midline Neck exam: ABSENT: carotid bruit, JVD, lymphadenopathy, thyromegaly Respiratory exam: PRESENT: clear to auscultation garry. ABSENT: rales, rhonchi, wheezes Cardiovascular exam: PRESENT: irregular rhythm. ABSENT: systolic murmur Pulses: PRESENT: normal dorsalis pedis pul GI/Abdominal exam: PRESENT: normal bowel sounds, soft. ABSENT: distended, guarding, mass, organolmegaly, rebound, tenderness Rectal exam: PRESENT: deferred Extremities exam: PRESENT: full ROM. ABSENT: calf tenderness, clubbing, pedal edema Neurological exam: PRESENT: alert, awake, oriented to person, oriented to place, oriented to time, oriented to situation, CN II-XII grossly intact. ABSENT: motor sensory deficit Results Laboratory Results: 09/06/19 05:47 09/06/19 05:47 09/05/19 09/05/19 09/05/19 09:17 09:17 12:19 Creatine Kinase 97 CK-MB (CK-2) 1.49 Troponin I < 0.012 < 0.012 09/05/19 16:38 Creatine Kinase CK-MB (CK-2) 1.24 Troponin I < 0.012 Impressions: Chest X-Ray 09/05/19 00:00 IMPRESSION: Low inspiratory lung volumes without a superimposed acute cardiopulmonary process. Head CT 09/05/19 12:44 IMPRESSION: NORMAL BRAIN CT WITHOUT CONTRAST. EVIDENCE OF ACUTE STROKE: NO. Head CTA 09/07/19 00:00 IMPRESSION: NO CTA EVIDENCE OF STENOSIS OR ANEURYSM OF THE [place]. Assessment and Plan - Diagnosis (1) Atrial fibrillation with RVR Is this a current diagnosis for this admission?: Yes Plan: 09/06: Will start patient on scheduled p.o. Lopressor. Also discussed anticoagulation in length with patient and family on bedside. Discussed benefits of stroke reduction and risk of bleeding. Discussed options including Coumadin and different NOACs. They verbalized they want to do their own research first and do more reading before they give us a final decision about anticoagulation. 09/07: Increase Lopressor to 50 mg every 12. Will start Xarelto after screening for intracranial aneurysm and colonoscopy results. 227. Rate-controlled. Continue Lopressor 50 mg q12. Will be started on Xarelto tomorrow after colonoscopy results. (2) History of Wocoi-Odhnugsuv-Zcfjt (WPW) syndrome Is this a current diagnosis for this admission?: Yes - Time Time Spent with patient: 25-34 minutes
--- NOTE | 2019-09-08 19:35 | Progress Note ---
Provider Note Provider Note: CARDIOLOGY PROGRESS NOTE by Dr. Roma George on 09/08/2019. SUBJECTIVE: The patient continues to be in atrial fibrillation with controlled ventricular response. He is being prepped for colonoscopy tomorrow. There is no chest pain or discomfort.. There is no PND orthopnea. There is no TIA CVA symptoms. Chronic anticoagulation institution has been held until the patient's colonoscopy is completed to see if there is any correctable pathology prior to starting the patient on lesion. Of note in view of the patient's history of intermittent headaches and family history of intracerebral aneurysm he had a CT of the head which showed no aneurysm of the [place]. There is PND orthopnea or leg edema. PHYSICAL EXAMINATION: The patient is well-built and well-nourished in no acute distress. Selected Entries 09/08/19 15:43 Temperature 98.3 F Temperature Oral Source Pulse Rate 91 Respiratory 18 Rate Blood Pressure 131/86 H Blood Pressure 101 Mean BP Location Left Arm BP Position Sitting O2 Sat by Pulse 98 Oximetry Oxygen Delivery Room Air Method HEAD: Is atraumatic normocephalic. EYES: Pupils are equal round regular reactive to light and accommodation. There is no clinical pallor. There is no scleral icterus. External ocular movements are normal. EARS: Tympanic membranes are intact. External auditory canals are clear. NOSE: Nasal mucous membranes are not inflamed. There is no deviated nasal septum. MOUTH: Mucous membranes of mouth are moist. Tongue is moist. There is no ulcers. There is no bleeding from the gums. THROAT: There is no redness of the oropharynx. There is no exudates in the throat. SKIN: There is no petechia or ecchymosis. There is no skin rashes or skin lesions. NECK: Is supple. There is no JVD. Carotids are equal there is no bruits. There is no lymphadenopathy. There is no goiter. There is no accessory muscles of respiration in use. Trachea central. LUNGS: There is diminished air entry and prolonged expiration. On percussion there is hyperresonance. There is scattered rhonchi present. There is no rales or wheezing. There is no chest wall tenderness on palpation. HEART: S1-S2 is heard. S1 is of variable intensity. There is no S3 gallop. There is no S4 gallop. There is systolic murmur left sternal border and the apex, without radiation. There is no murmur of aortic stenosis. Prosthetic aortic valve click heard crisply. There is no aortic regurgitation murmur.. Th ere is no rub. ABDOMEN: Is Nontender. There is no hepatosplenomegaly. Bowel sounds are well heard. EXTREMITIES: Femorals are deep. Femorals are slightly diminished. There is no femoral bruits. There is no pedal edema. There is no DVT or cellulitis. Leg pulses are diminished. There is no cyanosis or clubbing. Capillary refill is normal. There is no calf tenderness. BUILDING ECONOMIST: The patient is conscious awake alert oriented x3 with no focal deficits. PSYCHIATRIC: The patient judgment and insight are intact her affect is normal. Chest X-Ray 09/05/19 00:00 IMPRESSION: Low inspiratory lung volumes without a superimposed acute cardiopulmonary process. Head CT 09/05/19 12:44 IMPRESSION: NORMAL BRAIN CT WITHOUT CONTRAST. EVIDENCE OF ACUTE STROKE: NO. Head CTA 09/07/19 00:00 IMPRESSION: NO CTA EVIDENCE OF STENOSIS OR ANEURYSM OF THE [place] OF [place]. IMPRESSION/RECOMMENDATION: 1. New onset atrial fibrillation: Continue beta-dewayne. The patient's corrected Damien vas 2 score is 1 hence chronic anticoagulation indicated. Will start Eliquis once the patient blood pressure is controlled. Continue Lopressor. 2. Hypertension: Blood pressure not very well controlled. Increase antihypertensives. Continue his lisinopril. 3. Symptoms suggestive of sleep apnea: Patient recommended to have a sleep study scheduled by the [facility] when he gets discharged. 4. Bright red blood per rectum: Patient having colonoscopy tomorrow to make sure that there is no pathology that needs to be corrected prior to the patient being started on chronic anticoagulation for his atrial fibrillation. 5. Chest pressure/burning: No acute EKG changes of myocardial ischemia, and cardiac enzymes so far negative. Would recommend IV Lexiscan Cardiolite stress test as an outpatient. This can be arranged through the [facility]. 6. History of complex ablation of WPW pathway in a patient with history of Vrhks-Odixorzgb-Lnfuw syndrome. Medications reviewed. Medical regimen and management plan discussed with the attending physician on the case. Discussed with the patient and patient's . 40 minutes spent on the patient more than 50% time spent in direct patient care. Medical decision making is of moderate complexity.
[2019-09-08] MEDS: ATORVASTATIN CALCIUM 40 MG TABLET PO SCH (23:01)
[2019-09-08] MEDS: LORAZEPAM 1 MG TABLET PO PRN (23:04)
[2019-09-09] MEDS ORDERED: LIDOCAINE 1%/EPINEPHRINE INJ 20 ML VIAL ONE (08:37)
[2019-09-09] MEDS: ENOXAPARIN SODIUM INJ 40 MG/0.4 ML DISP.SYRIN SUBCUT SCH (09:27)
[2019-09-09] MEDS ORDERED: IPRATROPIUM/ALBUTEROL 0.5-2.5 MG/3 ML AMPUL NEB ONE (09:37)
[2019-09-09] MEDS ORDERED: PROPOFOL INJ 200 MG/20 ML VIAL IV ONE (10:37)
--- NOTE | 2019-09-09 11:29 | Operative Report ---
Nonrecallable Operative Report DATE OF SURGERY: 09/09/19 PREOPERATIVE DIAGNOSIS: rectal bleed POSTOPERATIVE DIAGNOSIS: grade 3 hemorrhoids,normal colonoscopy OPERATION: colonoscopy and hemorrhoidal banding SURGEON: MARTHA TRAVIS ANESTHESIA: Moderate Sedation TISSUE REMOVED OR ALTERED: None COMPLICATIONS: None ESTIMATED BLOOD LOSS: 0 INTRAOPERATIVE FINDINGS: No evidence of polyps or mucosal masses grade 3 hemorrhoids. PROCEDURE: Patient was brought to the operating room awake alert stable condition placed on the operative gurney in a left lateral decubitus position and given IV sedation throughout the procedure. The rectum was prepped and draped in usual sterile fashion and the procedure commenced after appropriate timeout and site verification. Olympus colonoscope was passed into the rectum and easily traversed the rectum into the sigmoid colon and then descending colon as we traversed up the descending colon to the splenic flexure we able to navigate the splenic flexure to the transverse colon hepatic flexure ascending colon to reach the cecum. The prep was fair. We then slowly withdrew the scope examining all mucosal surfaces ascending colon hepatic flexure transverse colon splenic flexure there was no evidence of any mucosal abnormalities or polyps. We then traversed to the descending colon to the rectum and that appeared to be normal without any evidence of polyps or masses. We then retroflexed the scope and identified grade 3 hemorrhoids. The scope was then slowly withdrawn. Then using the anoscope that was placed into the rectum in all 4 quadrants examined there were grade 3 hemorrhoids bands were placed at 11:00 7:00 and 2 o'clock position. Minimal bleeding resulted. The endoscope was then removed which completed the procedure. Estimated blood loss was negligible sponge needle counts were correct x2 the patient was then awakened in the operating transferred recovery in stable condition
--- NOTE | 2019-09-09 11:30 | Progress Note ---
Provider Note Provider Note: Note patient underwent a colonoscopy this morning. Examination of the colon from the rectum to the cecum revealed no evidence of any mucosal masses or polyps. There are grade 3 hemorrhoids and there were banded x3. There is no evidence of any active bleeding. At this point it is okay to start anticoagulation on the patient. Please reconsult surgery as necessary.
[2019-09-09] MEDS: METOPROLOL TARTRATE 50 MG TABLET PO SCH (12:59)
[2019-09-09] MEDS: FAMOTIDINE 20 MG TABLET PO SCH (13:01)
[2019-09-09] MEDS: DOCUSATE SODIUM 100 MG CAPSULE PO SCH (13:01)
[2019-09-09] MEDS: NICOTINE 14 MG/24 HR PATCH.TD24 TD SCH (13:05)
[2019-09-09] MEDS: LISINOPRIL 10 MG TABLET PO SCH (13:06)
[2019-09-09] MEDS: OXYCODONE-ACETAMINOPHEN 5-325 MG TABLET PO PRN (13:07)
[2019-09-09] MEDS ORDERED: MORPHINE SULFATE 10 MG/ML INJ IV ONE (14:00)
[2019-09-09 15:17] VITALS: BP 136/98
--- NOTE | 2019-09-09 18:34 | PDOC DISCHARGE SUMMARY ---
Impression - Admit/DC Date/PCP Admission Date/Primary Care Provider: 09/05/19 11:47 [facility] Discharge Date: 09/09/19 - Discharge Diagnosis (1) Atrial fibrillation with RVR Is this a current diagnosis for this admission?: Yes (2) History of Lfnun-Hofuyzpec-Skexr (WPW) syndrome Is this a current diagnosis for this admission?: Yes - Additional Information Resuscitation Status: Full Code Discharge Diet: Other (Comments) Discharge Activity: No Lifting Over 10 Pounds, No Lifting/Push/Pulling Referrals: [facility] [Primary Care Provider] - 09/16/19 10:30 am (WITH STEVE september 12 0830 [facility] september 15 at 1030 [place] [facility]) Prescriptions: Metoprolol Tartrate [Lopressor 50 mg Tablet] 50 mg PO Q12 #60 tablet Rivaroxaban [Xarelto] 20 mg PO DAILY #30 tablet Home Medications: Lisinopril/Hydrochlorothiazide [Lisinopril-Hctz 20-25 mg Tab] 1 each PO DAILY 09/05/19 Metoprolol Tartrate [Lopressor 50 mg Tablet] 50 mg PO Q12 #60 tablet 09/09/19 Rivaroxaban [Xarelto] 20 mg PO DAILY #30 tablet 09/09/19 History of Present Illiness History of Present Illness: This is a 53-year-old man presents to the emergency department with palpitations which began around 3 AM this morning. Apparently he went to the [place] outpatient center and was found to be in atrial fibrillation with RVR. EMS was called patient was transported to the hospital. He was given Cardizem 20 mg in route. Describes a chest pressure which he thinks could be anxiety however no prior history of CAD. 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 He is a smoker approximately half pack per day, hypertension controlled with medications and is not diabetic. Hospital Course Hospital Course: This is a 53-year-old male with a prior history of WPW with prior ablation who presented with palpitations. Patient was found to have a new onset atrial fibrillation with RVR. He was given IV and Cardizem metoprolol in the ER. Cardiology was also consulted. Patient was switched to p.o. Lopressor. This was gradually increased. Rate control was achieved. Patient has been ambulating the hallways on room air without any desaturation or acute issues. Patient verbalized that they are very concerned because a sibling from a ruptured intracranial aneurysm. He also relays that he has been having bright red bloody stools recently. CT of the head was negative for intracranial aneurysms. He also had a colonoscopy done and had banding of 3 hemorrhoids by surgery. He was cleared for initiation of anticoagulation. Patient will closely follow-up with his PCP at the [place]. He may benefit from referral to an rn liaison. Patient also complains of snoring. Recommended sleep study to evaluate for SORAYA. Risk and benefits of anticoagulation was discussed and patient opted to be started on Xarelto. Physical Exam Vital Signs: Temp Pulse Resp BP Pulse Ox 97.6 F 89 20 136/98 H 96 09/09/19 14:59 09/09/19 14:59 09/09/19 14:59 09/09/19 14:59 09/09/19 14:59 Intake & Output 09/08/19 09/09/19 09/10/19 06:59 06:59 06:59 Intake Total 1999 1430 300 Balance 1999 1430 300 Weight 250 lb 0.067 oz 251 lb 1.704 oz General appearance: PRESENT: no acute distress, well-developed, well-nourished Head exam: PRESENT: atraumatic, normocephalic Eye exam: PRESENT: conjunctiva pink, EOMI, PERRLA. ABSENT: scleral icterus Ear exam: PRESENT: normal external ear exam Mouth exam: PRESENT: moist, tongue midline Neck exam: ABSENT: carotid bruit, JVD, lymphadenopathy, thyromegaly Respiratory exam: PRESENT: clear to auscultation garry. ABSENT: rales, rhonchi, wheezes Cardiovascular exam: PRESENT: irregular rhythm. ABSENT: diastolic murmur, rubs, systolic murmur Pulses: PRESENT: normal dorsalis pedis pul GI/Abdominal exam: PRESENT: normal bowel sounds, soft. ABSENT: distended, guarding, mass, organolmegaly, rebound, tenderness Rectal exam: PRESENT: deferred Extremities exam: PRESENT: full ROM. ABSENT: calf tenderness, clubbing, pedal edema Neurological exam: PRESENT: alert, awake, oriented to person, oriented to place, oriented to time, oriented to situation, CN II-XII grossly intact. ABSENT: motor sensory deficit Results Laboratory Results: WBC 8.2 10^3/uL (4.0-10.5) 09/06/19 05:47 RBC 4.80 10^6/uL (4.35-5.55) 09/06/19 05:47 Hgb 15.2 g/dL (13.5-17.0) 09/06/19 05:47 Hct 43.9 % (37.9-51.0) 09/06/19 05:47 MCV 92 fl (80-97) 09/06/19 05:47 MCH 31.7 pg (27.0-33.4) 09/06/19 05:47 MCHC 34.7 g/dL (32.0-36.0) 09/06/19 05:47 RDW 14.7 % (11.5-14.0) H 09/06/19 05:47 Plt Count 185 10^3/uL (150-450) 09/06/19 05:47 Lymph % (Auto) 31.2 % (13-45) 09/06/19 05:47 [place] % (Auto) 5.9 % (3-13) 09/06/19 05:47 Eos % (Auto) 4.0 % (0-6) 09/06/19 05:47 Baso % (Auto) 0.5 % (0-2) 09/06/19 05:47 Absolute Neuts (auto) 4.8 10^3/uL (1.7-8.2) 09/06/19 05:47 Absolute Lymphs (auto) 2.6 10^3/uL (0.5-4.7) 09/06/19 05:47 Absolute Monos (auto) 0.5 10^3/uL (0.1-1.4) 09/06/19 05:47 Absolute Eos (auto) 0.3 10^3/uL (0.0-0.6) 09/06/19 05:47 Absolute Basos (auto) 0.0 10^3/uL (0.0-0.2) 09/06/19 05:47 Seg Neutrophils % 58.4 % (42-78) 09/06/19 05:47 PT 12.9 SEC (11.4-15.4) 09/05/19 09:17 INR 0.97 09/05/19 09:17 APTT 27.2 SEC (23.5-35.8) 09/06/19 05:47 Sodium 137.7 mmol/L (137-145) 09/06/19 05:47 Potassium 4.3 mmol/L (3.6-5.0) 09/09/19 09:59 Chloride 103 mmol/L (98-107) 09/06/19 05:47 Carbon Dioxide 26 mmol/L (22-30) 09/06/19 05:47 Anion Gap 9 (5-19) 09/06/19 05:47 BUN 20 mg/dL (7-20) 09/06/19 05:47 Creatinine 0.74 mg/dL (0.52-1.25) 09/06/19 05:47 Est GFR ( Amer) > 60 (>60) 09/06/19 05:47 Est GFR (MDRD) Non-Af > 60 (>60) 09/06/19 05:47 Glucose 107 mg/dL (75-110) 09/06/19 05:47 Calcium 8.9 mg/dL (8.4-10.2) 09/06/19 05:47 Magnesium 2.1 mg/dL (1.6-2.3) 09/06/19 05:47 Total Bilirubin 0.5 mg/dL (0.2-1.3) 09/05/19 09:17 Direct Bilirubin 0.1 mg/dL (0.0-0.4) 09/05/19 09:17 Neonat Total Bilirubin Not Reportable 09/05/19 09:17 Neonat Direct Bilirubin Not Reportable 09/05/19 09:17 Neonat Indirect Bili Not Reportable 09/05/19 09:17 AST 42 U/L (17-59) 09/05/19 09:17 ALT 43 U/L (<50) 09/05/19 09:17 Alkaline Phosphatase 57 U/L (38-126) 09/05/19 09:17 Creatine Kinase 97 U/L (55-170) 09/05/19 09:17 CK-MB (CK-2) 1.24 ng/mL (<4.55) 09/05/19 16:38 Troponin I < 0.012 ng/mL 09/05/19 16:38 Total Protein 7.1 g/dL (6.3-8.2) 09/05/19 09:17 Albumin 4.3 g/dL (3.5-5.0) 09/05/19 09:17 TSH 2.58 uIU/mL (0.47-4.68) 09/05/19 09:17 Urine Color YELLOW 09/05/19 17:10 Urine Appearance SLIGHTLY-CLOUDY 09/05/19 17:10 Urine pH 6.0 (5.0-9.0) 09/05/19 17:10 Ur Specific [place] 1.021 09/05/19 17:10 Urine Protein NEGATIVE mg/dL (NEGATIVE) 09/05/19 17:10 Urine Glucose (UA) NEGATIVE mg/dL (NEGATIVE) 09/05/19 17:10 Urine Ketones NEGATIVE mg/dL (NEGATIVE) 09/05/19 17:10 Urine Blood NEGATIVE (NEGATIVE) 09/05/19 17:10 Urine Nitrite NEGATIVE (NEGATIVE) 09/05/19 17:10 Urine Bilirubin NEGATIVE (NEGATIVE) 09/05/19 17:10 Urine Urobilinogen NEGATIVE mg/dL (<2.0) 09/05/19 17:10 Ur Leukocyte Esterase NEGATIVE (NEGATIVE) 09/05/19 17:10 Urine WBC (Auto) 1 /HPF 09/05/19 17:10 Urine RBC (Auto) 2 /HPF 09/05/19 17:10 Squamous Epi Cells Auto <1 /HPF 09/05/19 17:10 Urine Mucus (Auto) MANY /LPF 09/05/19 17:10 Urine Ascorbic Acid NEGATIVE (NEGATIVE) 09/05/19 17:10 09/05/19 09/05/19 09/05/19 09:17 12:19 16:38 CK-MB (CK-2) 1.49 1.24 Troponin I < 0.012 < 0.012 < 0.012 Impressions: Chest X-Ray 09/05/19 00:00 IMPRESSION: Low inspiratory lung volumes without a superimposed acute cardiopulmonary process. Head CT 09/05/19 12:44 IMPRESSION: NORMAL BRAIN CT WITHOUT CONTRAST. EVIDENCE OF ACUTE STROKE: NO. Head CTA 09/07/19 00:00 IMPRESSION: NO CTA EVIDENCE OF STENOSIS OR ANEURYSM OF THE [place]. Stroke Is this a Stroke Patient?: No Acute Heart Failure - Is this a Heart Failure Patient?: No
--- NOTE | 2019-09-09 23:38 | Progress Note ---
Provider Note Provider Note: CARDIOLOGY PROGRESS NOTE by Dr. Roma Paiz on 09/09/2019. Subjective: The patient had a colonoscopy and he had several large internal hemorrhoids which were ligated with bands. Indeed he says it hurts at the site of the procedure. He has no chest pain or discomfort. He continues to be in atrial fibrillation with controlled ventricular response. There is no ventricular arrhythmia seen on the monitor. There is no TIA CVA symptoms. PHYSICAL EXAMINATION: The patient is well-built and well-nourished in no acute distress. Selected Entries 09/09/19 09/09/19 14:20 14:59 Temperature 97.6 F Pulse Rate 89 Respiratory 20 Rate Blood Pressure 136/98 H [Right] O2 Sat by Pulse 96 Oximetry Oxygen Delivery Room Air Method ( includes room air) HEAD: Is atraumatic normocephalic. EYES: Pupils are equal round regular reactive to light and accommodation. There is no clinical pallor. There is no scleral icterus. External ocular movements are normal. EARS: Tympanic membranes are intact. External auditory canals are clear. NOSE: Nasal mucous membranes are not inflamed. There is no deviated nasal septum. MOUTH: Mucous membranes of mouth are moist. Tongue is moist. There is no ulcers. There is no bleeding from the gums. THROAT: There is no redness of the oropharynx. There is no exudates in the throat. SKIN: There is no petechia or ecchymosis. There is no skin rashes or skin lesions. NECK: Is supple. There is no JVD. Carotids are equal there is no bruits. There is no lymphadenopathy. There is no goiter. There is no accessory muscles of respiration in use. Trachea central. LUNGS: There is diminished air entry and prolonged expiration. On percussion there is hyperresonance. There is scattered rhonchi present. There is no rales or wheezing. There is no chest wall tenderness on palpation. HEART: S1-S2 is heard. S1 is of variable intensity. There is no S3 gallop. There is no S4 gallop. There is systolic murmur left sternal border and the apex, without radiation. There is no murmur of aortic stenosis. Prosthetic aortic valve click heard crisply. There is no aortic regurgitation murmur.. There is no rub. ABDOMEN: Is Nontender. There is no hepatosplenomegaly. Bowel sounds are well heard. EXTREMITIES: Femorals are deep. Femorals are slightly diminished. There is no femoral bruits. There is no pedal edema. There is no DVT or cellulitis. Leg pulses are diminished. There is no cyanosis or clubbing. Capillary refill is normal. There is no calf tenderness. CASTING TESTER: The patient is conscious awake alert oriented x3 with no focal deficits. PSYCHIATRIC: The patient judgment and insight are intact her affect is normal. Labs- All tests 24 hr 09/09/19 09:59 Potassium 4.3 Chest X-Ray 09/05/19 00:00 IMPRESSION: Low inspiratory lung volumes without a superimposed acute cardiopulmonary process. Head CT 09/05/19 12:44 IMPRESSION: NORMAL BRAIN CT WITHOUT CONTRAST. EVIDENCE OF ACUTE STROKE: NO. Head CTA 09/07/19 00:00 IMPRESSION: NO CTA EVIDENCE OF STENOSIS OR ANEURYSM OF THE [place]. IMPRESSION/RECOMMENDATION: 1. New onset atrial fibrillation: Continue beta-dewayne. The patient's corrected Damien vas 2 score is 1 hence chronic anticoagulation indicated. Will start Eliquis once the patient blood pressure is controlled. Continue Lopressor . Since the patient's rectal bleed issue etiology has been settled and corrected the patient should be able to be started on anticoagulation as soon as the surgical list who did the procedure states that it is safe to start anticoagulation. Recommend that the patient consults with an ultra bartenders preferably a plumbing assembler installer in [facility]. This can be arranged through the [place]. 2. Hypertension: Blood pressure not very well controlled. Increase antihypertensives. Continue his lisinopril. 3. Symptoms suggestive of sleep apnea: Patient recommended to have a sleep study scheduled by the [facility] when he gets discharged. 4. Bright red blood per rectum: Patient had colonoscopy he has significant internal hemorrhoids which were ligated with bands. The patient now can be started on anticoagulation. He also needs a GI follow-up. 5. Chest pressure/burning: No acute EKG changes of myocardial ischemia, and cardiac enzymes so far negative. Would recommend IV Lexiscan Cardiolite stress test as an outpatient. This can be arranged through the [facility]. 6. History of complex ablation of WPW pathway in a patient with history of Lqbeo-Akesvqzbk-Wljre syndrome. Medications reviewed. Medical regimen and management plan discussed with the attending physician on the case. Discussed with the patient. 40 minutes spent on the patient more than 50% time spent in direct patient care. Medical decision making is of moderate complexity. Will sign off.
== END 2019-09-09 15:56 | disposition home or self-care (01) ==
LOC: ER 08:49 → INTOOBSV 11:47 → EH 11:47 → 5 17:42
PROVIDERS: ADMIT Hospitalist; ATTEND Hospitalist
DX: I48.91 Unspecified atrial fibrillation (principal); I10 Essential (primary) hypertension; R07.89 Other chest pain; K64.2 Third degree hemorrhoids; F17.210 Nicotine dependence, cigarettes, uncomplicated; R51 Headache; R06.02 Shortness of breath; I25.2 Old myocardial infarction; Z82.49 Family history of ischemic heart disease and other diseases of the circulatory system; Z79.899 Other long term (current) drug therapy; Z79.01 Long term (current) use of anticoagulants; Z86.79 Personal history of other diseases of the circulatory system; Z98.890 Other specified postprocedural states; Z79.1 Long term (current) use of non-steroidal anti-inflammatories (NSAID)
CPT/HCPCS: 93005 ×2; 99285; 96374; 45378; 36415 ×3; 82553; 82550; 83735; 84132; 84443; 85025 ×2; 85610; 85730; 80048; 80053; 81001; 84484; 93306; 71045; 70450; 70496; 93010 ×2; 00811; 46221; J3490 ×2; J2270; J1650 ×4; J2704; J7620; 811; G0378

== ENCOUNTER 2019-10-21 07:46 | Observation (INO) | payer OTHER ==
[2019-10-21] MEDS ORDERED: ASPIRIN 81 MG TABLET, CHEWABLE PO ONE (07:58)
[2019-10-21] MEDS ORDERED: DILTIAZEM HCL INJ 25 MG/5 ML VIAL IV ONE (07:59)
[2019-10-21 08:14] LABS: ABSOLUTE BASOPHILS # (AUTO) 0.1 10^3/uL (0.0-0.2); ABSOLUTE EOSINOPHILS # (AUTO) 0.3 10^3/uL (0.0-0.6); ABSOLUTE LYMPHOCYTES (AUTO) 2.6 10^3/uL (0.5-4.7); ABSOLUTE MONOCYTES (AUTO) 0.5 10^3/uL (0.1-1.4); BASOPHILS % (AUTO) 0.8 % (0-2); EOSINOPHILS % (AUTO) 5.2 % (0-6); HEMATOCRIT 42.5 % (37.9-51.0); LYMPHOCYTES % (AUTO) 40.1 % (13-45); MEAN CORPUSCULAR VOLUME 88 fl (80-97); MONOCYTES % (AUTO) 8.1 % (3-13); PLATELET COUNT 229 10^3/uL (150-450); RED BLOOD COUNT 4.85 10^6/uL (4.35-5.55); RED CELL DISTRIBUTION WIDTH 15.7 % (11.5-14.0); SEGMENTED NEUTROPHILS % (AUTO) 45.8 % (42-78); TOTAL CELLS COUNTED % (AUTO) 100 %; WHITE BLOOD COUNT 6.6 10^3/uL (4.0-10.5)
[2019-10-21 08:35] LABS: HEMOGLOBIN 14.3 g/dL (13.5-17.0); MEAN CORPUSCULAR HEMOGLOBIN 29.4 pg (27.0-33.4); MEAN CORPUSCULAR HGB CONC 33.6 g/dL (32.0-36.0)
[2019-10-21 08:37] LABS: ALBUMIN 4.6 g/dL (3.5-5.0); ALKALINE PHOSPHATASE 76 U/L (38-126); ANION GAP 11 (5-19); ASPARTATE AMINO TRANSFERASE 57 U/L (17-59); BILIRUBIN,DIRECT 0.1 mg/dL (0.0-0.4); BILIRUBIN,TOTAL 0.7 mg/dL (0.2-1.3); BLOOD UREA NITROGEN 19 mg/dL (7-20); CALCIUM 9.5 mg/dL (8.4-10.2); CARBON DIOXIDE 24 mmol/L (22-30); CHLORIDE 101 mmol/L (98-107); GLUCOSE 173 mg/dL (75-110); POTASSIUM 3.3 mmol/L (3.6-5.0); TOTAL PROTEIN 7.6 g/dL (6.3-8.2)
[2019-10-21 08:49] LABS: NT PRO BNP 363 pg/mL (<125)
[2019-10-21 08:55] LABS: TROPONIN I < 0.012 ng/mL
--- NOTE | 2019-10-21 09:02 | RADIOLOGY REPORT (SQ) ---
EXAM DESCRIPTION: CHEST SINGLE VIEW IMAGES COMPLETED DATE/TIME: 10/21/2019 8:39 am REASON FOR STUDY: htn COMPARISON: 09/05/2019. EXAM PARAMETERS: NUMBER OF VIEWS: One view. TECHNIQUE: Single frontal radiographic view of the chest acquired. RADIATION DOSE: NA LIMITATIONS: None. FINDINGS: LUNGS AND PLEURA: No opacities, masses or pneumothorax. No pleural effusion. MEDIASTINUM AND HILAR STRUCTURES: No masses. Contour normal. HEART AND VASCULAR STRUCTURES: Heart normal in size. Normal vasculature. BONES: No acute findings. HARDWARE: None in the chest. OTHER: No other significant finding. IMPRESSION: NO ACUTE RADIOGRAPHIC FINDING IN THE CHEST. TECHNICAL DOCUMENTATION: JOB ID: [id number] 2010 [employer]- All Rights Reserved Reading location - IP/workstation name: [email or web address]
[2019-10-21] MEDS ORDERED: MAGNESIUM SULFATE/D5W 1 GM/100 ML RTUPB IV ONE (09:24)
[2019-10-21] MEDS ORDERED: POTASSIUM CHLORIDE 20 MEQ PACKET PO ONE (09:24)
--- NOTE | 2019-10-21 09:52 | EKG REPORT ---
SEVERITY:- ABNORMAL ECG - ATRIAL FIBRILLATION, V-RATE 112-205 CONSIDER ANTEROSEPTAL INFARCT BORDERLINE T ABNORMALITIES, DIFFUSE LEADS : Confirmed by: Roma George MD 21-Oct-2019 09:50:38
--- NOTE | 2019-10-21 09:56 | ER Document Report ---
Entered by ENID SAMUELS SCRIBE 10/21/19 0755 Acting as scribe for:SPENCER BURKS DO ED Cardiac - General Chief Complaint: Irregular Pulse Stated Complaint: HEART PROBLEMS Primary Care Provider: [facility] [Primary [facility]] - Follow up as needed Mode of Arrival: Ambulatory Information source: Patient Notes: This 54-year-old male patient presents to the emergency department today with complaints of an elevated heart rate. Patient has a history of atrial fibrillation and has been in A. fib with RVR in the past. The last he was admitted here for this was in August,. Patient also complains of shortness of breath which is likely due to his heart rate of 160. TRAVEL OUTSIDE OF THE [place] IN LAST 30 DAYS: No - Related Data Allergies/Adverse Reactions: No Known Allergies Allergy (Verified 09/07/17 13:35) Past Medical History - General Information source: Patient, [facility] Records - Social History Smoking Status: Smoker,Current Status Unk Frequency of alcohol use: None Drug Abuse: None Lives with: Family Family History: Reviewed & Not Pertinent - Past Medical History Cardiac Medical History: Reports: Hx Atrial Fibrillation, Hx Heart Attack, Hx Hypertension Renal/ Medical History: Reports: Hx Peritoneal Dialysis Musculoskeletal Medical History: Reports Hx Arthritis, Reports Hx Musculoskeletal Deformity, Reports Hx Musculoskeletal Trauma Past Surgical History: Reports: Hx Cardiac Surgery - ablasian, Hx Orthopedic Surgery, Other - WPW ablation Review of Systems - Review of Systems Constitutional: No symptoms reported EENT: No symptoms reported Cardiovascular: See HPI, Palpitations, Heart racing Respiratory: See HPI, Short of breath Gastrointestinal: No symptoms reported Genitourinary: No symptoms reported Male Genitourinary: No symptoms reported Musculoskeletal: No symptoms reported Skin: No symptoms reported Hematologic/Lymphatic: No symptoms reported Neurological/Psychological: No symptoms reported -: Yes All other systems reviewed and negative Physical Exam - Vital signs Vitals: Resp Pulse Ox 20 98 10/21/19 07:49 10/21/19 07:49 - Notes Notes: Physical Exam: General: Alert, appears well. HEENT: Normocephalic. Atraumatic. PERRL. Extraocular movements intact. Orop harynx clear. Neck: Supple. Non-tender. Respiratory: No respiratory distress. Clear and equal breath sounds bilaterally. Cardiovascular: Tachycardic into the 160s, irregularly irregular. Abdominal: Normal Inspection. Non-tender. No distension. Normal Bowel Sounds. Back: No gross abnormalities. Extremities: Moves all four extremities. Upper extremities: Normal inspection. Normal ROM. Lower extremities: Normal inspection. No edema. Normal ROM. Neurological: Normal cognition. AAOx4. Normal speech. Psychological: Normal affect. Normal Mood. Skin: Warm. Dry. Normal color. Course - Vital Signs Vital signs: Temp Pulse Resp BP Pulse Ox 20 113/72 100 10/21/19 11:16 10/21/19 11:16 10/21/19 11:16 - Laboratory Result Diagrams: 10/21/19 07:55 10/21/19 07:55 Laboratory results interpreted by me: 10/21/19 10/21/19 10/21/19 07:55 07:55 07:55 RDW 15.7 H Sodium 136.3 L Potassium 3.3 L Glucose 173 H Magnesium 1.5 L NT-Pro-B Natriuret Pep 363 H Critical Care Note - Critical Care Note Total time excluding time spent on procedures (mins): 30 Comments: Assessing and reassessing pt. Interpretting studies and speaking with hopitalist team. Ambulating pt and checking response along with review of old records and labs. Discharge - Discharge Clinical Impression: Atrial fibrillation with RVR, Hypomagnesemia, Hypokalemia Condition: Fair Disposition: ADMITTED OBSERVATION Admitting Provider: [facility] (Hospitalist) Unit Admitted: Telemetry Referrals: [facility] [Primary [facility]] - Follow up as needed I personally performed the services described in the documentation, reviewed and edited the documentation which was dictated to the scribe in my presence, and it accurately records my words and actions.
[2019-10-21 11:23] LABS: APPEARANCE,URINE CLEAR; BILIRUBIN,URINE NEGATIVE (NEGATIVE); COLOR,URINE YELLOW; GLUCOSE, URINE NEGATIVE (NEGATIVE); KETONES,URINE NEGATIVE (NEGATIVE); LEUKOCYTE ESTERASE,URINE NEGATIVE (NEGATIVE); NITRITE,URINE NEGATIVE (NEGATIVE); PROTEIN,URINE NEGATIVE (NEGATIVE); URINE SPECIFIC GRAVITY 1.018; UROBILINOGEN,URINE NEGATIVE mg/dL (<2.0)
--- NOTE | 2019-10-21 12:39 | PDOC H&P ---
History of Present Illness Admission Date/PCP: 10/21/19 11:48 [facility] Patient complains of: Shortness of breath, chest pain, palpitations History of Present Illness: MADDIE WALSH is a 54 year old male with a history of WPW status post ablation 5 years ago, atrial fibrillation diagnosed 2 months ago, who presents to the hospital with complaints of paroxysms of dyspnea worsened with exertion, chest pain and palpitations. Symptoms started about a week ago. However patient states that since his initial diagnosis of atrial fibrillation in August of this year, he has not been able to exert himself much and sometimes gets dyspneic on activity. Did have an episode of chest pain described as chest pressure occurring yesterday radiating to the neck. Admits to compliance with his medications. On presentation to the ER he was noted to be in atrial fibri llation with rapid ventricular response and was given a Cardizem bolus with improvement of his heart rate down to the 110s. Admits to some paresthesias in both hands and feet but states that his paroxysms of shortness of breath and chest pain as well as the paresthesias resolved after his heart rate was slowed down in the ER. Past Medical History Cardiac Medical History: Reports: Atrial Fibrillation, Hypertension Musculoskeltal Medical History: Reports: Arthritis Past Surgical History Past Surgical History: Reports: Orthopedic Surgery, Other - WPW ablation Social History Lives with: Family Smoking Status: Former Smoker Frequency of Alcohol Use: Occasional Hx Recreational Drug Use: No Drugs: None Hx Prescription Drug Abuse: No - Advance Directive Resuscitation Status: Full Code Family History Family History: Hypertension Parental Family History Reviewed: Yes Children Family History Reviewed: Unknown Sibling(s) Family History Reviewed.: Unknown Medication/Allergy Home Medications: Lisinopril/Hydrochlorothiazide [Lisinopril-Hctz 20-25 mg Tab] 1 each PO DAILY 09/05/19 Metoprolol Tartrate [Lopressor 50 mg Tablet] 50 mg PO Q12 #60 tablet 09/09/19 Rivaroxaban [Xarelto] 20 mg PO DAILY #30 tablet 09/09/19 Allergies/Adverse Reactions: No Known Allergies Allergy (Verified 09/07/17 13:35) Review of Systems Constitutional: PRESENT: fatigue. ABSENT: chills, fever(s) Eyes: ABSENT: visual disturbances Ears: ABSENT: hearing changes Nose, Mouth, and Throat: ABSENT: headache(s) Cardiovascular: PRESENT: dyspnea on exertion. ABSENT: edema, orthropnea Respiratory: ABSENT: cough Gastrointestinal: ABSENT: abdominal pain, diarrhea, nausea, vomiting Genitourinary: ABSENT: dysuria Musculoskeletal: ABSENT: back pain Integumentary: ABSENT: diaphoresis Neurological: ABSENT: confusion, dizziness, focal weakness Psychiatric: ABSENT: anxiety Endocrine: ABSENT: heat intolerance Allergic/Immunologic: ABSENT: seasonal rhinorrhea Physical Exam Vital Signs: Temp Pulse Resp BP Pulse Ox 17 112/79 98 10/21/19 11:51 10/21/19 11:51 10/21/19 11:51 Intake & Output 10/20/19 10/21/19 10/22/19 06:59 06:59 06:59 Intake Total 100 Balance 100 Weight 111.13 kg General appearance: PRESENT: no acute distress, cooperative Mouth exam: PRESENT: neck supple Neck exam: ABSENT: JVD Respiratory exam: PRESENT: clear to auscultation garry, unlabored. ABSENT: tachypnea, wheezes Cardiovascular exam: PRESENT: irregular rhythm, +S1, +S2. ABSENT: gallop, tachycardia GI/Abdominal exam: PRESENT: soft. ABSENT: rebound, rigid, tenderness Extremities exam: ABSENT: pedal edema Musculoskeletal exam: PRESENT: ambulatory Neurological exam: PRESENT: alert, awake. ABSENT: ataxia, aphasic Psychiatric exam: ABSENT: agitated, anxious Focused psych exam: ABSENT: pressured speech Skin exam: ABSENT: jaundice Results Laboratory Results: 10/21/19 07:55 10/21/19 07:55 10/21/19 10/21/19 10/21/19 07:55 07:55 07:55 WBC 6.6 RBC 4.85 Hgb 14.3 Hct 42.5 MCV 88 MCH 29.4 MCHC 33.6 RDW 15.7 H Plt Count 229 Seg Neutrophils % 45.8 Sodium 136.3 L Potassium 3.3 L Chloride 101 Carbon Dioxide 24 Anion Gap 11 BUN 19 Creatinine 0.73 Est GFR ( Amer) > 60 Glucose 173 H Calcium 9.5 Magnesium 1.5 L Total Bilirubin 0.7 AST 57 Alkaline Phosphatase 76 Total Protein 7.6 Albumin 4.6 TSH 2.18 Urine Color Urine Appearance Urine pH Ur Specific [place] Urine Protein Urine Glucose (UA) Urine Ketones Urine Blood Urine Nitrite Ur Leukocyte Esterase Urine WBC (Auto) Urine RBC (Auto) 10/21/19 11:00 WBC RBC Hgb Hct MCV MCH MCHC RDW Plt Count Seg Neutrophils % Sodium Potassium Chloride Carbon Dioxide Anion Gap BUN Creatinine Est GFR ( Amer) Glucose Calcium Magnesium Total Bilirubin AST Alkaline Phosphatase Total Protein Albumin TSH Urine Color YELLOW Urine Appearance CLEAR Urine pH 7.0 Ur Specific [place] 1.018 Urine Protein NEGATIVE Urine Glucose (UA) NEGATIVE Urine Ketones NEGATIVE Urine Blood NEGATIVE Urine Nitrite NEGATIVE Ur Leukocyte Esterase NEGATIVE Urine WBC (Auto) 0 Urine RBC (Auto) 1 10/21/19 07:55 Troponin I < 0.012 NT-Pro-B Natriuret Pep 363 H Impressions: Chest X-Ray 10/21/19 07:59 IMPRESSION: NO ACUTE RADIOGRAPHIC FINDING IN THE CHEST. Assessment and Plan - Diagnosis (1) Persistent atrial fibrillation with rapid ventricular response Is this a current diagnosis for this admission?: Yes Plan: A. fib in the 170s on admission. Responded to Cardizem bolus. I will place patient back on his metoprolol but increase dose to 75 mg twice a day. Continue Xarelto for stroke prophylaxis. Patient endorses compliance with medications. Correct electrolyte abnormalities including hypokalemia and hypomagnesemia. Monitor on telemetry through today. I believe patient's dyspnea and chest pressure was secondary to his rapid ventricular response. Troponin negative. Chest x-ray within normal limits. TSH WNL. Echocardiogram from 2 months ago has been reviewed and unremarkable. (2) Hypokalemia Is this a current diagnosis for this admission?: Yes Plan: Replete. (3) History of Gppcp-Uwqvqdabm-Qfqre (WPW) syndrome Is this a current diagnosis for this admission?: Yes Plan: Status post ablation 5 years ago. No recurrence since then according to patient. (4) Obesity (BMI 30.0-34.9) Is this a current diagnosis for this admission?: Yes - Time Time Spent with patient: 35 or more minutes
[2019-10-21] MEDS ORDERED: ACETAMINOPHEN 325 MG TABLET PO PRN (12:45)
[2019-10-21] MEDS ORDERED: METOPROLOL TARTRATE PF/INJ 5 MG/5 ML SDV IV PRN (12:48)
[2019-10-21] MEDS: METOPROLOL TARTRATE 25 MG TABLET PO SCH (14:08)
[2019-10-21] MEDS: MAGNESIUM SULFATE/D5W 1 GM/100 ML RTUPB IV SCH ×2 (14:17→15:14)
[2019-10-21] MEDS ORDERED: RIVAROXABAN 10 MG TABLET PO SCH (17:00)
[2019-10-21] MEDS ORDERED: POTASSIUM CHLORIDE 10 MEQ TABLET.ER PO ONE (18:00)
--- NOTE | 2019-10-21 20:01 | EKG REPORT ---
SEVERITY:- ABNORMAL ECG - ATRIAL FIBRILLATION ANTERIOR INFARCT, AGE INDETERMINATE : Confirmed by: Roma George MD 21-Oct-2019 20:00:24
[2019-10-22] MEDS: METOPROLOL TARTRATE 25 MG TABLET PO SCH ×2 (00:24→09:38)
[2019-10-22 06:02] LABS: ANION GAP 6 (5-19); BLOOD UREA NITROGEN 19 mg/dL (7-20); CARBON DIOXIDE 29 mmol/L (22-30); CHLORIDE 101 mmol/L (98-107); GLUCOSE 132 mg/dL (75-110); POTASSIUM 4.1 mmol/L (3.6-5.0)
[2019-10-22 08:13] VITALS: BP 128/89
[2019-10-22] MEDS ORDERED: HYDROCHLOROTHIAZIDE 25 MG TABLET PO SCH (10:00)
[2019-10-22] MEDS ORDERED: LISINOPRIL 10 MG TABLET PO SCH (10:00)
--- NOTE | 2019-10-22 10:07 | EKG REPORT ---
SEVERITY:- ABNORMAL ECG - ATRIAL FIBRILLATION CONSIDER ANTEROSEPTAL INFARCT : Confirmed by: Roma George MD 22-Oct-2019 10:07:18
--- NOTE | 2019-10-22 11:40 | PDOC DISCHARGE SUMMARY ---
Impression - Admit/DC Date/PCP Admission Date/Primary Care Provider: 10/21/19 11:48 [facility] Discharge Date: 10/22/19 - Discharge Diagnosis (1) Persistent atrial fibrillation with rapid ventricular response Is this a current diagnosis for this admission?: Yes (2) Hypokalemia Is this a current diagnosis for this admission?: Yes (3) History of Lpwlf-Cdhgjhsdu-Evzmu (WPW) syndrome Is this a current diagnosis for this admission?: Yes (4) Obesity (BMI 30.0-34.9) Is this a current diagnosis for this admission?: Yes - Additional Information Resuscitation Status: Full Code Discharge Diet: Cardiac Discharge Activity: Activity As Tolerated Referrals: [facility] [[facility]] - Follow up as needed Prescriptions: Metoprolol Tartrate [Lopressor 25 mg Tablet] 75 mg PO Q12 30 Days tablet Magnesium Oxide [Magnesium] 400 mg PO DAILY #30 capsule Potassium Chloride 20 meq PO DAILY #30 tab.er.prt Home Medications: Lisinopril/Hydrochlorothiazide [Lisinopril-Hctz 20-25 mg Tab] 1 each PO DAILY 09/05/19 Rivaroxaban [Xarelto] 20 mg PO DAILY #30 tablet 09/09/19 Duloxetine HCl [Cymbalta 30 mg Capsule.dr] 30 mg PO DAILY 10/21/19 Tramadol HCl [Ultram 50 mg Tablet] 50 mg PO Q6HP PRN 10/21/19 Magnesium Oxide [Magnesium] 400 mg PO DAILY #30 capsule 10/22/19 Metoprolol Tartrate [Lopressor 25 mg Tablet] 75 mg PO Q12 30 Days tablet 10/22/19 Potassium Chloride 20 meq PO DAILY #30 tab.er.prt 10/22/19 History of Present Illiness History of Present Illness: MADDIE WALSH is a 54 year old male with a history of WPW status post ablation 5 years ago, atrial fibrillation diagnosed 2 months ago, who presents to the hospital with complaints of paroxysms of dyspnea worsened with exertion, chest pain and palpitations. Symptoms started about a week ago. However patient states that since his initial diagnosis of atrial fibrillation in August of this year, he has not been able to exert himself much and sometimes gets dyspneic on activity. Did have an episode of chest pain described as chest pressure occurring yesterday radiating to the neck. Admits to compliance with his medications. On presentation to the ER he was noted to be in atrial fibrillation with rapid ventricular response and was given a Cardizem bolus with improvement of his heart rate down to the 110s. Admits to some paresthesias in both hands and feet but states that his paroxysms of shortness of breath and chest pain as well as the paresthesias resolved after his heart rate was slowed down in the ER. Hospital Course Hospital Course: Patient was admitted to the hospital for evaluation and monitoring after presenting with dyspnea secondary to tachyarrhythmia and noted atrial fibrillation with rapid ventricular response in the 170 on arrival. I suspect patient's atrial fibrillation is persistent and accounting for patient's longstanding dyspnea. Patient had adequate rate control with 1 bolus of diltiazem in the ER. No drip was required. Patient was also noted to have some hypomagnesemia and hypokalemia which may have stemmed from patient's hydrochlorothiazide use. Patient was placed on potassium and magnesium supplements which she has been discharged with. Troponin was negative. Patient's Lopressor was resumed at an increased dose of 75 mg twice a day. Patient has remained in A. fib through the night but his shortness of breath and chest pressure have resolved since normalization of his heart rate. BNP was unremarkable and no clear evidence of congestive heart failure. Patient being discharged with increased dose of Lopressor and potassium and magnesium supplements. Of note during patient's last admission, patient was recommended to have a Lexiscan stress test done in the outpatient by travel registered nurse icu. Today patient informed me that the Lexiscan stress test has not been done but this has already been scheduled for by the CT. Patient is safe and stable for discharge at this time. Physical Exam Vital Signs: Temp Pulse Resp BP Pulse Ox 98.4 F 60 18 128/89 H 98 10/22/19 08:00 10/22/19 08:00 10/22/19 08:00 10/22/19 08:00 10/22/19 08:00 Intake & Output 10/21/19 10/22/19 10/23/19 06:59 06:59 06:59 Intake Total 1215 Balance 1215 Weight 110.4 kg General appearance: PRESENT: no acute distress, cooperative Respiratory exam: PRESENT: unlabored. ABSENT: accessory muscle use, retraction, tachypnea Cardiovascular exam: PRESENT: irregular rhythm. ABSENT: bradycardia, RRR, tachycardia Neurological exam: PRESENT: alert, awake Results Laboratory Results: WBC 6.6 10^3/uL (4.0-10.5) 10/21/19 07:55 RBC 4.85 10^6/uL (4.35-5.55) 10/21/19 07:55 Hgb 14.3 g/dL (13.5-17.0) 10/21/19 07:55 Hct 42.5 % (37.9-51.0) 10/21/19 07:55 MCV 88 fl (80-97) 10/21/19 07:55 MCH 29.4 pg (27.0-33.4) 10/21/19 07:55 MCHC 33.6 g/dL (32.0-36.0) 10/21/19 07:55 RDW 15.7 % (11.5-14.0) H 10/21/19 07:55 Plt Count 229 10^3/uL (150-450) 10/21/19 07:55 Lymph % (Auto) 40.1 % (13-45) 10/21/19 07:55 [place] % (Auto) 8.1 % (3-13) 10/21/19 07:55 Eos % (Auto) 5.2 % (0-6) 10/21/19 07:55 Baso % (Auto) 0.8 % (0-2) 10/21/19 07:55 Absolute Neuts (auto) 3.0 10^3/uL (1.7-8.2) 10/21/19 07:55 Absolute Lymphs (auto) 2.6 10^3/uL (0.5-4.7) 10/21/19 07:55 Absolute Monos (auto) 0.5 10^3/uL (0.1-1.4) 10/21/19 07:55 Absolute Eos (auto) 0.3 10^3/uL (0.0-0.6) 10/21/19 07:55 Absolute Basos (auto) 0.1 10^3/uL (0.0-0.2) 10/21/19 07:55 Seg Neutrophils % 45.8 % (42-78) 10/21/19 07:55 Sodium 135.8 mmol/L (137-145) L 10/22/19 05:18 Potassium 4.1 mmol/L (3.6-5.0) 10/22/19 05:18 Chloride 101 mmol/L (98-107) 10/22/19 05:18 Carbon Dioxide 29 mmol/L (22-30) 10/22/19 05:18 Anion Gap 6 (5-19) 10/22/19 05:18 BUN 19 mg/dL (7-20) 10/22/19 05:18 Creatinine 0.76 mg/dL (0.52-1.25) 10/22/19 05:18 Est GFR ( Amer) > 60 (>60) 10/22/19 05:18 Est GFR (MDRD) Non-Af > 60 (>60) 10/22/19 05:18 Glucose 132 mg/dL (75-110) H 10/22/19 05:18 Calcium 9.0 mg/dL (8.4-10.2) 10/22/19 05:18 Magnesium 2.1 mg/dL (1.6-2.3) 10/22/19 05:18 Total Bilirubin 0.7 mg/dL (0.2-1.3) 10/21/19 07:55 Direct Bilirubin 0.1 mg/dL (0.0-0.4) 10/21/19 07:55 Neonat Total Bilirubin Not Reportable 10/21/19 07:55 Neonat Direct Bilirubin Not Reportable 10/21/19 07:55 Neonat Indirect Bili Not Reportable 10/21/19 07:55 AST 57 U/L (17-59) 10/21/19 07:55 ALT 30 U/L (<50) 10/21/19 07:55 Alkaline Phosphatase 76 U/L (38-126) 10/21/19 07:55 Troponin I < 0.012 ng/mL 10/21/19 07:55 NT-Pro-B Natriuret Pep 363 pg/mL (<125) H 10/21/19 07:55 Total Protein 7.6 g/dL (6.3-8.2) 10/21/19 07:55 Albumin 4.6 g/dL (3.5-5.0) 10/21/19 07:55 TSH 2.18 uIU/mL (0.47-4.68) 10/21/19 07:55 Urine Color YELLOW 04/10/20 11:00 Urine Appearance CLEAR 10/21/19 11:00 Urine pH 7.0 (5.0-9.0) 10/21/19 11:00 Ur Specific [place] 1.018 10/21/19 11:00 Urine Protein NEGATIVE mg/dL (NEGATIVE) 10/21/19 11:00 Urine Glucose (UA) NEGATIVE mg/dL (NEGATIVE) 10/21/19 11:00 Urine Ketones NEGATIVE mg/dL (NEGATIVE) 10/21/19 11:00 Urine Blood NEGATIVE (NEGATIVE) 10/21/19 11:00 Urine Nitrite NEGATIVE (NEGATIVE) 10/21/19 11:00 Urine Bilirubin NEGATIVE (NEGATIVE) 10/21/19 11:00 Urine Urobilinogen NEGATIVE mg/dL (<2.0) 10/21/19 11:00 Ur Leukocyte Esterase NEGATIVE (NEGATIVE) 10/21/19 11:00 Urine WBC (Auto) 0 /HPF 10/21/19 11:00 Urine RBC (Auto) 1 /HPF 10/21/19 11:00 Squamous Epi Cells Auto <1 /HPF 10/21/19 11:00 Urine Mucus (Auto) RARE /LPF 10/21/19 11:00 Urine Ascorbic Acid NEGATIVE (NEGATIVE) 10/21/19 11:00 10/21/19 07:55 Troponin I < 0.012 NT-Pro-B Natriuret Pep 363 H Impressions: Chest X-Ray 10/21/19 07:59 IMPRESSION: NO ACUTE RADIOGRAPHIC FINDING IN THE CHEST. Plan Time Spent: Less than 30 Minutes Stroke Is this a Stroke Patient?: No Acute Heart Failure - Is this a Heart Failure Patient?: No
== END 2019-10-22 13:07 | disposition home or self-care (01) ==
LOC: ER 07:46 → EH 11:48 → 4S 13:05
PROVIDERS: ADMIT Internal Medicine; ATTEND Internal Medicine
DX: I48.19 Other persistent atrial fibrillation (principal); E87.6 Hypokalemia; E66.9 Obesity, unspecified; R20.2 Paresthesia of skin; E83.42 Hypomagnesemia; R06.09 Other forms of dyspnea; I25.2 Old myocardial infarction; Z68.34 Body mass index [BMI] 34.0-34.9, adult; Z86.79 Personal history of other diseases of the circulatory system; Z79.899 Other long term (current) drug therapy; Z79.01 Long term (current) use of anticoagulants; Z98.890 Other specified postprocedural states; Z87.891 Personal history of nicotine dependence; Z82.49 Family history of ischemic heart disease and other diseases of the circulatory system
CPT/HCPCS: 93005 ×3; 99291; 96375; 96365; 36415 ×2; 83735 ×2; 84443; 85025; 80048; 80053; 81001; 84484; 83880; 71045; 93010 ×2; J3490 ×3; J3475; G0378

== ENCOUNTER 2020-01-24 15:46 | Inpatient (IN) | payer OTHER ==
[2020-01-24] MEDS ORDERED: NORMAL SALINE 1000 ML 1,000 ML IV ONE ×2 (17:05→19:51)
[2020-01-24] MEDS ORDERED: MORPHINE SULFATE 10 MG/ML INJ IV ONE ×2 (17:05→19:51)
[2020-01-24] MEDS ORDERED: ONDANSETRON HCL INJ/PF 4 MG/2 ML SDV IV ONE (17:05)
[2020-01-24] MEDS ORDERED: LIDOCAINE 2% VISCOUS SOLN 15 ML UDCUP PO ONE (17:11)
[2020-01-24] MEDS ORDERED: METOCLOPRAMIDE HCL 10 MG TABLET PO ONE (17:11)
[2020-01-24] MEDS ORDERED: MAG HYDROX/AL HYDROX/SIMETH SUSP 30 ML UDCUP PO ONE (17:11)
--- NOTE | 2020-01-24 17:12 | ER Document Report ---
ED Medical Screen (RME) - General Chief Complaint: Abdominal Pain Stated Complaint: FLANK PAIN/SWELLING Time Seen by Provider: 01/24/20 16:51 Primary Care Provider: AMBER,NHAN [Primary Care Provider] - Follow up as needed TRAVEL OUTSIDE OF THE [place] IN LAST 30 DAYS: No - HPI Notes: 01/24/20 17:07 54-year-old male who recently had a cardioversion this morning for atrial fibrillation with a history HTN presents to the emergency room for complaints of right upper quadrant and epigastric abdominal pain that started last night but has become progressively worse throughout the day. Patient states he had a scheduled cardioversion for his atrial fibrillation for this morning, so he did not really eat much yesterday but has no appetite, states he feels bloated. Reports he has been constipated has not had a bowel movement in a couple of days. Has not tried any [id number] medications. States pain is 4 out of 5, sharp and stabbing to right upper quadrant and epigastric area. Patient states he is only had about 8 ounces of water for upcoming cardioversion, he said was successful (performed by Dr. Davies). Denies any chest pain shortness of breath, vomiting, diarrhea, headache, fevers or chills. I have greeted and performed a rapid initial assessment of this patient. A comprehensive ED assessment and evaluation of the patient, analysis of test results and completion of the medical decision making process will be conducted by additional ED providers. PHYSICAL EXAMINATION: GENERAL: Well-appearing, well-nourished and in mild distress HEAD: Atraumatic, normocephalic. CV: s1, s2 regular LUNGS: No respiratory distress abd: RUQ abd pain, epigastric abd pain, no cva tenderness - Related Data Allergies/Adverse Reactions: No Known Allergies Allergy (Verified 09/07/17 13:35) Past Medical History - Social History Frequency of alcohol use: Occasional Drug Abuse: None - Past Medical History Cardiac Medical History: Reports: Hx Atrial Fibrillation, Hx Heart Attack, Hx Hypertension Renal/ Medical History: Reports: Hx Peritoneal Dialysis Musculoskeltal Medical History: Reports Hx Arthritis, Reports Hx Musculoskeletal Deformity, Reports Hx Musculoskeletal Trauma Past Surgical History: Reports: Hx Cardiac Surgery - ablasian, Hx Orthopedic Surgery, Other - WPW ablation - Immunizations Hx Diphtheria, Pertussis, Tetanus Vaccination: No Physical Exam - Vital signs Vitals: Temp Pulse Resp BP Pulse Ox 98.4 F 81 20 141/81 H 99 01/24/20 16:05 01/24/20 16:05 01/24/20 16:05 01/24/20 16:05 01/24/20 16:05 Course - Vital Signs Vital signs: Temp Pulse Resp BP Pulse Ox 98.4 F 81 20 141/81 H 99 01/24/20 16:05 01/24/20 16:05 01/24/20 16:05 01/24/20 16:05 01/24/20 16:05 Doctor's Discharge - Discharge [facility]errals[facility] - Follow up as needed
[2020-01-24] MEDS ORDERED: METOCLOPRAMIDE HCL ORAL SOLN 10 MG/10 ML UDCUP PO ONE ×2 (17:42)
[2020-01-24 17:45] LABS: ABSOLUTE EOSINOPHILS # (AUTO) 0.1 10^3/uL (0.0-0.6); ABSOLUTE LYMPHOCYTES (AUTO) 1.5 10^3/uL (0.5-4.7); ABSOLUTE MONOCYTES (AUTO) 0.7 10^3/uL (0.1-1.4); ABSOLUTE NEUT (AUTO) 6.8 10^3/uL (1.7-8.2); BASOPHILS % (AUTO) 0.3 % (0-2); EOSINOPHILS % (AUTO) 1.5 % (0-6); HEMATOCRIT 41.7 % (37.9-51.0); HEMOGLOBIN 14.6 g/dL (13.5-17.0); LYMPHOCYTES % (AUTO) 16.3 % (13-45); MEAN CORPUSCULAR HEMOGLOBIN 32.3 pg (27.0-33.4); MEAN CORPUSCULAR HGB CONC 35.1 g/dL (32.0-36.0); MEAN CORPUSCULAR VOLUME 92 fl (80-97); MONOCYTES % (AUTO) 7.6 % (3-13); PLATELET COUNT 217 10^3/uL (150-450); RED BLOOD COUNT 4.53 10^6/uL (4.35-5.55); RED CELL DISTRIBUTION WIDTH 13.8 % (11.5-14.0); SEGMENTED NEUTROPHILS % (AUTO) 74.3 % (42-78); TOTAL CELLS COUNTED % (AUTO) 100 %; WHITE BLOOD COUNT 9.2 10^3/uL (4.0-10.5)
[2020-01-24 18:09] LABS: ALBUMIN 4.9 g/dL (3.5-5.0); ALKALINE PHOSPHATASE 51 U/L (38-126); ANION GAP 8 (5-19); ASPARTATE AMINO TRANSFERASE 36 U/L (17-59); BLOOD UREA NITROGEN 15 mg/dL (7-20); CALCIUM 10.2 mg/dL (8.4-10.2); CARBON DIOXIDE 31 mmol/L (22-30); CHLORIDE 96 mmol/L (98-107); GLUCOSE 108 mg/dL (75-110); POTASSIUM 4.3 mmol/L (3.6-5.0); TOTAL PROTEIN 7.8 g/dL (6.3-8.2)
[2020-01-24] MEDS ORDERED: METRONIDAZOLE 500 MG/NS RTU 500 MG/100 ML RTUPB IV ONE (19:12)
--- NOTE | 2020-01-24 19:22 | RADIOLOGY REPORT (SQ) ---
EXAM DESCRIPTION: CT ABD/PELVIS WITH IV ONLY IMAGES COMPLETED DATE/TIME: 01/24/2020 6:43 pm REASON FOR STUDY: epigastric/RUQ abd pain x 1 day COMPARISON: None. TECHNIQUE: CT scan of the abdomen and pelvis performed using helical scanning technique with dynamic intravenous contrast injection. No oral contrast. Images reviewed with lung, soft tissue, and bone windows. Reconstructed coronal and sagittal MPR images reviewed. Delayed images for evaluation of the urinary system also acquired. All images stored on PACS. All CT scanners at this facility use dose modulation, iterative reconstruction, and/or weight based d osing when appropriate to reduce radiation dose to as low as reasonably achievable (ALARA). [facility]: Dose Right [facility]: CareDose [facility]: Dose Right [facility]: Teradose 4D [facility]: SphereUp CONTRAST TYPE AND DOSE: contrast/concentration: Isovue 350.00 mmol/ml; Total Contrast Delivered: 99. 0 ml; Total Saline Delivered: 54.0 ml RENAL FUNCTION: Creatinine - 0.8 BUN=15 RADIATION DOSE: CT Rad equipment meets quality standard of care and radiation dose reduction techniq ues were employed. CTDIvol: 15.7 - 19.8 mGy. DLP: 2106 mGy-cm.. LIMITATIONS: None. FINDINGS: LOWER CHEST: A few very small subcentimeter nodules in the lower lobes. LIVER: Normal size. No masses. No dilated ducts the hepatic and portal veins are patent. . SPLEEN: Splenule, normal anatomic variant. Normal size. No focal lesions. PANCREAS: No masses. No significant calcifications. No adjacent inflammation or peripancreatic fluid collections. Pancreatic duct not dilated. GALLBLADDER: No gallstones. No pericholecystic fluid. ADRENAL GLANDS: No significant masses or asymmetry. RIGHT KIDNEY AND URETER: No solid masses. No significant calcifications. No hydronephrosis or hyd roureter. LEFT KIDNEY AND URETER: No solid masses. No significant calcifications. No hydronephrosis or hydr oureter. AORTA AND VESSELS: No aneurysm. No dissection. Renal arteries, SMA, celiac without stenosis. RETROPERITONEUM: No retroperitoneal adenopathy, hemorrhage or masses. BOWEL AND PERITONEAL CAVITY: No masses or inflammatory changes. No free fluid or peritoneal masses. APPENDIX: The appendix appears to be retrocecal in location. It lies medial and adjacent to but sep arate from the right hepatic lobe in the upper- mid quadrant of the abdomen, coronal image 37, series 601, sagittal images 37-41, series 602 and axial image 48, series 3. The appendix is dilated and me asures 11-12.0 mm in AP diameter. The wall of the appendix is enhancing. The surrounding periappend iceal fat is hazy in appearance with slight fluid identified. Considerations for these findings incl ude appendicitis with phlegmon. PELVIS: Prostate gland measures 4.2 cm in diameter. No free fluid. Normal bladder. ABDOMINAL WALL: Fat in the upper scrotal sacs. BONES: No significant or acute findings. OTHER: No other significant finding. IMPRESSION: 1. The findings as detailed above suggest appendicitis and mild phlegmon. The appendix appears to be retrocecal in location. Correlation suggested. COMMENT: 1. The results of this examination were discussed with emergency department perch machine inspector on at 19:12 hours. TECHNICAL DOCUMENTATION: JOB ID: [id number] Quality ID # [id number]: Final reports with documentation of one or more dose reduction techniques (e.g., Au tomated exposure control, adjustment of the mA and/or kV according to patient size, use of iterative reconstruction technique) 2010 [employer]- All Rights Reserved Reading location - IP/workstation name: [facility]
[2020-01-24] MEDS ORDERED: CEFTRIAXONE 1 GM/D5W RTU 1 GM/50 ML RTUPB IV SCH (19:30)
--- NOTE | 2020-01-24 19:44 | ER Document Report ---
Doctor's Note Notes: 01/24/20 19:30 1914-Radiologist called to notify that patient has retrocecal acute appendicitis. Patient does not have a leukocytosis, no shift, vital signs are stable. Called charge nurse, Marybeth, make patient aware that he does have acute appendicitis. Blood cultures initiated, ceftriaxone and Flagyl IV started 1943-consulted with Dr. Sergio Wade, surgeon on-call, who was made aware that patient does have acute appendicitis. Due to the patient being on eliquis for his a fib, he stated he would likely not perform surgery tonight. would like the hospitalist to take lead on the patient due to underlying medical conditions. 1951-Consulted with Dr. Patel, hospitalist for admission under the hospitalist service. 1999-Odette Nielsen,, nurse practitioner taking over patient's care, disposition given.
[2020-01-24 19:57] LABS: INTERNATIONAL RATION (INR) 1.35; PROTHROMBIN TIME 16.7 SEC (11.4-15.4)
[2020-01-24 19:58] LABS: PARTIAL THROMBOPLASTIN TIME 37.4 SEC (23.5-35.8)
[2020-01-24] MEDS ORDERED: ACETAMINOPHEN 325 MG TABLET PO PRN (20:25)
[2020-01-24] MEDS ORDERED: HEPARIN SOD (PORCINE) 1,000 UNIT/ML 10 ML VIAL IV ONE (20:27)
--- NOTE | 2020-01-24 20:39 | ER Document Report ---
ED GI/ - General Chief Complaint: Abdominal Pain Stated Complaint: FLANK PAIN/SWELLING Time Seen by Provider: 01/24/20 19:30 Mode of Arrival: Ambulatory Information source: Patient Notes: Patient presents complaining of right-sided abdominal pain that started yesterday and worsened today. Patient does report nausea and decreased appetite. Patient states he has had some mild difficulty with emptying his bladder. Patient states that he was seen earlier today and had an outpatient cardioversion to treat his A. fib. Patient reports that cardioversion was successful. TRAVEL OUTSIDE OF THE [place] IN LAST 30 DAYS: No - HPI Patient complains to provider of: Abdominal pain. No: Vomiting Onset: Yesterday Timing/Duration: Worse Quality of pain: Sharp Pain Level: 4 Location: RLQ Associated symptoms: Nausea, Urinary hesitancy. denies: Constipation, Diarrhea, Urinary frequency, Urinary retention, Urinary urgency, Vomiting Exacerbated by: Denies Relieved by: Denies Similar symptoms previously: No Recently seen / treated by doctor: Yes - Related Data Allergies/Adverse Reactions: No Known Allergies Allergy (Verified 09/07/17 13:35) Past Medical History - General Information source: Patient - Social History Smoking Status: Former Smoker Frequency of alcohol use: Heavy Drug Abuse: None Lives with: Family - Daily Family History: Hypertension - Past Medical History Cardiac Medical History: Reports: Hx Atrial Fibrillation, Hx Heart Attack, Hx Hypertension Renal/ Medical History: Reports: Hx Peritoneal Dialysis Musculoskeletal Medical History: Reports Hx Arthritis, Reports Hx Musculoskeletal Deformity, Reports Hx Musculoskeletal Trauma Past Surgical History: Reports: Hx Cardiac Surgery - ablasian, Hx Orthopedic Surgery, Other - WPW ablation - Immunizations Hx Diphtheria, Pertussis, Tetanus Vaccination: No Review of Systems - Review of Systems Constitutional: No symptoms reported. denies: Fever EENT: No symptoms reported Cardiovascular: No symptoms reported. denies: Chest pain Respiratory: No symptoms reported Gastrointestinal: Abdominal pain, Nausea, Poor appetite. denies: Diarrhea, V omiting Genitourinary: No symptoms reported Male Genitourinary: No symptoms reported Musculoskeletal: No symptoms reported. denies: Back pain Skin: No symptoms reported Hematologic/Lymphatic: No symptoms reported Neurological/Psychological: No symptoms reported Physical Exam - Vital signs Vitals: Temp Pulse Resp BP Pulse Ox 98.4 F 81 20 141/81 H 99 01/24/20 16:05 01/24/20 16:05 01/24/20 16:05 01/24/20 16:05 01/24/20 16:05 - General General appearance: Appears well, Alert In distress: None - HEENT Head: Normocephalic, Atraumatic Eyes: Normal Conjunctiva: Normal Nasal: Normal Mouth/Lips: Normal Mucous membranes: Normal Neck: Normal, Supple - Respiratory Respiratory status: No respiratory distress Chest status: Nontender Breath sounds: Normal. No: Rales, Rhonchi, Stridor, Wheezing Chest palpation: Normal - Cardiovascular Rhythm: Regular Heart sounds: S1 appreciated, S2 appreciated - Abdominal Inspection: Normal Distension: Distended - Mild distention Bowel sounds: Normal Tenderness: Tender - Right middle abdominal tenderness Organomegaly: No organomegaly - Back Back: Normal - Extremities General upper extremity: Normal inspection, Normal strength General lower extremity: Normal inspection, Normal strength - Neurological Neuro grossly intact: Yes Cognition: Normal Sid Coma Scale Eye Opening: Spontaneous [place] Coma Scale Verbal: Oriented Sid Coma Scale Motor: Obeys Commands Sid Coma Scale Total: 15 - Psychological Associated symptoms: Normal affect, Normal mood - Skin Skin Temperature: Warm Skin Moisture: Dry Skin Color: Normal Course - Re-evaluation Re-evalutation: 01/24/20 20:00 Dr. Wade has evaluated patient and plans to take patient to the OR tomorrow. Dr. Rock has been consulted and agrees to accept patient for admission. Patient is agreeable with this plan of care at this time. - Vital Signs Vital signs: Temp Pulse Resp BP Pulse Ox 98.4 F 81 20 141/81 H 99 01/24/20 16:05 01/24/20 16:05 01/24/20 16:05 01/24/20 16:05 01/24/20 16:05 - Laboratory Result Diagrams: 01/24/20 17:29 01/24/20 17:29 Laboratory results interpreted by me: 01/24/20 01/24/20 17:29 17:29 PT 16.7 H APTT 37.4 H Sodium 135.2 L Chloride 96 L Carbon Dioxide 31 H 01/24/20 21:19 Labs- All tests 24 hr 01/24/20 01/24/20 01/24/20 17:29 17:29 17:29 WBC 9.2 RBC 4.53 Hgb 14.6 Hct 41.7 MCV 92 MCH 32.3 MCHC 35.1 RDW 13.8 Plt Count 217 Lymph % (Auto) 16.3 [place] % (Auto) 7.6 Eos % (Auto) 1.5 Baso % (Auto) 0.3 Absolute Neuts (auto) 6.8 Absolute Lymphs (auto) 1.5 Absolute Monos (auto) 0.7 Absolute Eos (auto) 0.1 Absolute Basos (auto) 0.0 Seg Neutrophils % 74.3 PT 16.7 H INR 1.35 APTT 37.4 H Sodium 135.2 L Potassium 4.3 Chloride 96 L Carbon Dioxide 31 H Anion Gap 8 BUN 15 Creatinine 0.81 Est GFR ( Amer) > 60 Est GFR (MDRD) Non-Af > 60 Glucose 108 Lactic Acid Calcium 10.2 Total Bilirubin 1.0 Direct Bilirubin 0.0 Neonat Total Bilirubin Not Reportable Neonat Direct Bilirubin Not Reportable Neonat Indirect Bili Not Reportable AST 36 ALT 25 Alkaline Phosphatase 51 Total Protein 7.8 Albumin 4.9 Lipase 55.5 01/24/20 19:55 WBC RBC Hgb Hct MCV MCH MCHC RDW Plt Count Lymph % (Auto) [place] % (Auto) Eos % (Auto) Baso % (Auto) Absolute Neuts (auto) Absolute Lymphs (auto) Absolute Monos (auto) Absolute Eos (auto) Absolute Basos (auto) Seg Neutrophils % PT INR APTT Sodium Potassium Chloride Carbon Dioxide Anion Gap BUN Creatinine Est GFR ( Amer) Est GFR (MDRD) Non-Af Glucose Lactic Acid 1.1 Calcium Total Bilirubin Direct Bilirubin Neonat Total Bilirubin Neonat Direct Bilirubin Neonat Indirect Bili AST ALT Alkaline Phosphatase Total Protein Albumin Lipase - Diagnostic Test Radiology reviewed: Reports reviewed Discharge - Discharge Clinical Impression: Acute appendicitis Qualifiers: Acute appendicitis type: with localized peritonitis Appendicitis gangrene presence: without gangrene Appendicitis perforation presence: without per foration Appendicitis abscess presence: without abscess Qualified Code(s): K35.30 - Acute appendicitis with localized peritonitis, without perforation or gangrene Condition: Stable Disposition: ADMITTED INPATIENT Admitting Provider: Shweta (Hospitalist) Unit Admitted: Telemetry
--- NOTE | 2020-01-24 20:51 | PDOC H&P ---
History of Present Illness Admission Date/PCP: [facility] History of Present Illness: MADDIE WALSH is a 54 year old male with a history of atrial fibrillation on chronic anticoagulation, hypertension, remote history of Xlmul-Epobflwqo-Eyckz status post ablation, and multiple orthopedic surgeries who has been treated for the past several months for atrial fibrillation and has been anticoagulated. He went for a cardioversion this morning. He said his abdominal pain started last night. It is in the right lower quadrant. He has not had any fevers but thinks he has had a couple of chills. He has not had any nausea, vomiting, or diarrhea. He called his primary care provider at the [facility] and they recommended him taking some laxatives, which he said provided no benefit. He also felt like he had some swelling on the left side of his abdomen. When it was not getting any better he decided to come to the ER to have it evaluated. His labs and vitals are all normal. He did have evidence of appendicitis on abdominal CT. Because he is on Xarelto, the decision was made to admit him to the medical service and place him on IV antibiotics and a heparin drip with surgery consulting. Past Medical History Cardiac Medical History: Reports: Atrial Fibrillation, Myocardial Infarction, Hypertension Musculoskeltal Medical History: Reports: Arthritis Past Surgical History Past Surgical History: Reports: Orthopedic Surgery, Other - WPW ablation Social History Smoking Status: Former Smoker Frequency of Alcohol Use: Occasional Hx Recreational Drug Use: No Drugs: None Hx Prescription Drug Abuse: No Family History Family History: Hypertension Parental Family History Reviewed: Yes Children Family History Reviewed: Unknown Sibling(s) Family History Reviewed.: Unknown Medication/Allergy Home Medications: Lisinopril/Hydrochlorothiazide [Lisinopril-Hctz 20-25 mg Tab] 1 each PO DAILY 09/05/19 Rivaroxaban [Xarelto] 20 mg PO DAILY #30 tablet 09/09/19 Duloxetine HCl [Cymbalta 30 mg Capsule.dr] 30 mg PO DAILY 10/21/19 Tramadol HCl [Ultram 50 mg Tablet] 50 mg PO Q6HP PRN 10/21/19 Magnesium Oxide [Magnesium] 400 mg PO DAILY #30 capsule 10/22/19 Metoprolol Tartrate [Lopressor 25 mg Tablet] 75 mg PO Q12 30 Days tablet 10/22/19 Potassium Chloride 20 meq PO DAILY #30 tab.er.prt 10/22/19 Allergies/Adverse Reactions: No Known Allergies Allergy (Verified 09/07/17 13:35) Review of Systems All systems: reviewed and no additional remarkable complaints except as stated - All systems were reviewed and were negative except as noted in the HPI Physical Exam Vital Signs: Temp Pulse Resp BP Pulse Ox 98.4 F 81 20 141/81 H 99 01/24/20 16:05 01/24/20 16:05 01/24/20 16:05 01/24/20 16:05 01/24/20 16:05 Intake & Output 01/23/20 01/24/20 01/25/20 06:59 06:59 06:59 Intake Total 1000 Balance 1000 Weight 111.9 kg General appearance: PRESENT: no acute distress, cooperative, obese Head exam: PRESENT: atraumatic, normocephalic Eye exam: PRESENT: EOMI, PERRLA. ABSENT: conjunctival injection, nystagmus, scleral icterus Ear exam: PRESENT: normal external ear exam Mouth exam: PRESENT: moist, neck supple Throat exam: ABSENT: post pharyngeal erythema Neck exam: PRESENT: full ROM. ABSENT: carotid bruit, lymphadenopathy, meni ngismus, tenderness, thyromegaly Respiratory exam: PRESENT: clear to auscultation garry, symmetrical, unlabored. ABSENT: accessory muscle use, chest wall tenderness, crackles, prolonged expiratory phas, rhonchi, tachypnea, wheezes Cardiovascular exam: PRESENT: RRR, +S1, +S2 Pulses: PRESENT: normal carotid pulses Vascular exam: PRESENT: normal capillary refill GI/Abdominal exam: PRESENT: normal bowel sounds, soft, tenderness - Right lower quadrant. ABSENT: distended, guarding, rebound Extremities exam: ABSENT: clubbing, pedal edema Musculoskeletal exam: PRESENT: ambulatory, normal inspection. ABSENT: deformity Neurological exam: PRESENT: alert, awake, oriented to person, oriented to place, oriented to time, oriented to situation, CN II-XII grossly intact. ABSENT: motor sensory deficit Psychiatric exam: PRESENT: appropriate affect, normal mood Skin exam: PRESENT: dry, warm Results Laboratory Results: 01/24/20 17:29 01/24/20 17:29 01/24/20 01/24/20 17:29 17:29 WBC 9.2 RBC 4.53 Hgb 14.6 Hct 41.7 MCV 92 MCH 32.3 MCHC 35.1 RDW 13.8 Plt Count 217 Seg Neutrophils % 74.3 Sodium 135.2 L Potassium 4.3 Chloride 96 L Carbon Dioxide 31 H Anion Gap 8 BUN 15 Creatinine 0.81 Est GFR ( Amer) > 60 Glucose 108 Calcium 10.2 Total Bilirubin 1.0 AST 36 Alkaline Phosphatase 51 Total Protein 7.8 Albumin 4.9 Lipase 55.5 Impressions: Abdomen/Pelvis CT 01/24/20 17:06 IMPRESSION: 1. The findings as detailed above suggest appendicitis and mild phlegmon. The appendix appears to be retrocecal in location. Correlation suggested. Assessment and Plan - Diagnosis (1) Acute appendicitis Qualifiers: Acute appendicitis type: with localized peritonitis Appendicitis gangrene presence: without gangrene Appendicitis perforation presence: without perforation Appendicitis abscess presence: without abscess Qualified Code(s): K35.30 - Acute appendicitis with localized peritonitis, without perforation or gangrene Is this a current diagnosis for this admission?: Yes Plan: Because he has been on Xarelto, the plan is to admit him to the hospitalist service and put him on antibiotics and a heparin drip and then reevaluate him in a few days to see if he needs surgery at that point. We will put him on Rocephin and Flagyl. Clear liquids and medications only. Dr. Wade saw him in the ER and will be following him. (2) Atrial fibrillation status post cardioversion Is this a current diagnosis for this admission?: Yes Plan: Currently in a sinus rhythm. Admitting to telemetry. We will continue metoprolol. (3) Chronic anticoagulation Is this a current diagnosis for this admission?: Yes Plan: Xarelto on hold, heparin drip initiated in case he needs surgery. (4) Hypertension Qualifiers: Hypertension type: essential hypertension Qualified Code(s): I10 - Essential (primary) hypertension Is this a current diagnosis for this admission?: Yes Plan: Continue lisinopril and HCTZ. (5) History of Qiojo-Vmxmrhiip-Rjdye (WPW) syndrome Is this a current diagnosis for this admission?: Yes Plan: Remote history, status post ablation. (6) Obesity (BMI 30.0-34.9) Is this a current diagnosis for this admission?: Yes Plan: Have encouraged lifestyle modification. - Time Time Spent with patient: 35 or more minutes - Inpatient Certification Based on my medical assessment, after consideration of the patient's comorbidities, presenting symptoms, or acuity I expect that the services needed warrant INPATIENT care.: Yes I certify that my determination is in accordance with my understanding of Medicare's requirements for reasonable and necessary INPATIENT services [42 CFR 412.3e].: Yes Medical Necessity: Need Close Monitoring Due to Risk of Patient Decompensation, Need For Continuous Telemetry Monitoring, Need for IV Antibiotics, Need for Surgery, Risk of Complication if Not Cared For in Hospital
[2020-01-24] MEDS ORDERED: HEPARIN SOD (PORCINE) 5,000 UNIT/ML 1 ML VIAL ONE (20:52)
[2020-01-24 21:23] LABS: APPEARANCE,URINE CLEAR; BILIRUBIN,URINE NEGATIVE (NEGATIVE); COLOR,URINE YELLOW; GLUCOSE, URINE NEGATIVE (NEGATIVE); KETONES,URINE NEGATIVE (NEGATIVE); LEUKOCYTE ESTERASE,URINE NEGATIVE (NEGATIVE); NITRITE,URINE NEGATIVE (NEGATIVE); PROTEIN,URINE NEGATIVE (NEGATIVE); UROBILINOGEN,URINE NEGATIVE mg/dL (<2.0)
[2020-01-24 21:28] LABS: URINE SPECIFIC GRAVITY > 1.060
--- NOTE | 2020-01-24 21:47 | EKG REPORT ---
SEVERITY:- BORDERLINE ECG - SINUS RHYTHM VENTRICULAR PREMATURE COMPLEX INTERPOLATED VENTRICULAR PREMATURE COMPLEX BORDERLINE R WAVE PROGRESSION, ANTERIOR LEADS : Confirmed by: Heladio Mariano MD 24-Jan-2020 21:47:03
[2020-01-24 22:05] LABS: ABSOLUTE EOSINOPHILS # (AUTO) 0.1 10^3/uL (0.0-0.6); ABSOLUTE LYMPHOCYTES (AUTO) 1.6 10^3/uL (0.5-4.7); ABSOLUTE MONOCYTES (AUTO) 0.6 10^3/uL (0.1-1.4); ABSOLUTE NEUT (AUTO) 5.1 10^3/uL (1.7-8.2); BASOPHILS % (AUTO) 0.3 % (0-2); EOSINOPHILS % (AUTO) 1.6 % (0-6); HEMATOCRIT 37.7 % (37.9-51.0); LYMPHOCYTES % (AUTO) 21.4 % (13-45); MEAN CORPUSCULAR HEMOGLOBIN 31.9 pg (27.0-33.4); MEAN CORPUSCULAR HGB CONC 34.4 g/dL (32.0-36.0); MEAN CORPUSCULAR VOLUME 93 fl (80-97); MONOCYTES % (AUTO) 7.6 % (3-13); PLATELET COUNT 182 10^3/uL (150-450); RED BLOOD COUNT 4.08 10^6/uL (4.35-5.55); RED CELL DISTRIBUTION WIDTH 13.8 % (11.5-14.0); SEGMENTED NEUTROPHILS % (AUTO) 69.1 % (42-78); TOTAL CELLS COUNTED % (AUTO) 100 %; WHITE BLOOD COUNT 7.4 10^3/uL (4.0-10.5)
[2020-01-24 22:09] LABS: INTERNATIONAL RATION (INR) 1.36; PROTHROMBIN TIME 16.9 SEC (11.4-15.4)
[2020-01-24 22:10] LABS: PARTIAL THROMBOPLASTIN TIME 37.7 SEC (23.5-35.8)
[2020-01-24] MEDS: HEPARIN SODIUM,PORCINE/D5W 25,000 UNIT/250 ML RTUINJ IV PRN (22:22)
[2020-01-24] MEDS ORDERED: HEPARIN SOD (PORCINE) 1,000 UNIT/ML 10 ML VIAL IV PRN (23:27)
[2020-01-25] MEDS: METRONIDAZOLE 500 MG/NS RTU 500 MG/100 ML RTUPB IV SCH ×4 (00:13→17:24)
[2020-01-25] MEDS: MORPHINE SULFATE 10 MG/ML INJ IV PRN ×5 (01:41→21:08)
[2020-01-25 03:17] LABS: ANION GAP 6 (5-19); BLOOD UREA NITROGEN 12 mg/dL (7-20); CALCIUM 8.8 mg/dL (8.4-10.2); CARBON DIOXIDE 30 mmol/L (22-30); CHLORIDE 99 mmol/L (98-107); GLUCOSE 106 mg/dL (75-110); POTASSIUM 3.9 mmol/L (3.6-5.0)
--- NOTE | 2020-01-25 03:23 | PDOC CONSULTATION ---
Consultation Consult Date: 01/25/20 Attending physician:: TIMA KATZ Provider Consulted: MARTHA TRAVIS Consult reason:: appendicitis History of Present Illness Admission Date/PCP: 01/24/20 20:39 [facility] History of Present Illness: MADDIE WALSH is a 54 year old male with a history of atrial fibrillation on chronic anticoagulation, hypertension, remote history of Mksio-Qgfsrrmji-Sxsdi status post ablation, and multiple orthopedic surgeries who has been treated for the past several months for atrial fibrillation and has been anticoagulated. He went for a cardioversion this morning. He said his abdominal pain started last night. It is in the right lower quadrant. He has not had any fevers but thinks he has had a couple of chills. He has not had any nausea, vomiting, or diarrhea. He called his primary care provider at the [facility] and they recommended him taking some laxatives, which he said provided no benefit. He also felt like he had some swelling on the left side of his abdomen. When it was not getting any better he decided to come to the ER to have it evaluated. His labs and vitals are all normal. He did have evidence of appendicitis on abdominal CT. Because he is on Xarelto, the decision was made to admit him to the medical service and place him on IV antibiotics and a heparin drip with surgery consulting Past Medical History Cardiac Medical History: Reports: Atrial Fibrillation, Myocardial Infarction, Hypertension Musculoskeltal Medical History: Reports: Arthritis Psychiatric Medical History: Denies: Depression Past Surgical History Past Surgical History: Reports: Orthopedic Surgery, Other - WPW ablation Social History Lives with: Family - Daily Smoking Status: Former Smoker Frequency of Alcohol Use: Occasional Hx Recreational Drug Use: No Drugs: None Hx Prescription Drug Abuse: No Family History Family History: Hypertension Parental Family History Reviewed: No Children Family History Reviewed: NA Sibling(s) Family History Reviewed.: NA Medication/Allergy Home Medications: Lisinopril/Hydrochlorothiazide [Lisinopril-Hctz 20-25 mg Tab] 1 each PO DAILY 09/05/19 Rivaroxaban [Xarelto] 20 mg PO DAILY #30 tablet 09/09/19 Duloxetine HCl [Cymbalta 30 mg Capsule.dr] 30 mg PO DAILY 10/21/19 Tramadol HCl [Ultram 50 mg Tablet] 50 mg PO Q6HP PRN 10/21/19 Magnesium Oxide [Magnesium] 400 mg PO DAILY #30 capsule 10/22/19 Metoprolol Tartrate [Lopressor 25 mg Tablet] 75 mg PO Q12 30 Days tablet 10/22/19 Potassium Chloride 20 meq PO DAILY #30 tab.er.prt 10/22/19 Allergies/Adverse Reactions: No Known Allergies Allergy (Verified 09/07/17 13:35) Review of Systems Constitutional: ABSENT: chills, fever(s), headache(s), weight gain, weight loss Nose, Mouth, and Throat: ABSENT: as per HPI, headache(s), mouth pain, sore throat, vertigo, other Breasts: ABSENT: as per HPI, other Cardiovascular: PRESENT: palpitations Respiratory: ABSENT: as per HPI, cough, dyspnea, hemoptysis, sputum, other Gastrointestinal: PRESENT: abdominal pain, nausea Genitourinary: ABSENT: as per HPI, difficulty urinating, dysuria, hematuria, nocturia, other Musculoskeletal: ABSENT: as per HPI, back pain, deformity, joint swelling, muscle weakness, other Integumentary: ABSENT: as per HPI, diaphoresis, erythema, lesions, pruritus, rash, wounds, other Neurological: ABSENT: as per HPI, abnormal gait, abnormal movements, abnormal speech, confusion, convulsions, dizziness, focal weakness, frequent falls, lack of coordination, memory loss, numbness, paresthesias, restless legs, syncope, tingling, tremor(s), vertigo, weakness, other Psychiatric: ABSENT: as per HPI, anxiety, depression, hallucinations, homidical ideation, suicidal ideation, other Endocrine: ABSENT: as per HPI, cold intolerance, flushing, heat intolerance, menstrual abnormalities, polydipsia, polyphagia, polyuria, other Hematologic/Lymphatic: ABSENT: as per HPI, easy bleeding, easy bruising, lymphadenopathy, other Allergic/Immunologic: ABSENT: as per HPI, seasonal rhinorrhea, other Physical Exam Vital Signs: Temp Pulse Resp BP Pulse Ox 98.1 F 71 22 H 118/73 100 01/25/20 00:42 01/25/20 02:00 01/25/20 00:42 01/25/20 00:42 01/25/20 00:42 Intake & Output 01/23/20 01/24/20 01/25/20 06:59 06:59 06:59 Intake Total 1725 Balance 1725 Weight 111.9 kg General appearance: PRESENT: no acute distress Head exam: PRESENT: normocephalic Eye exam: PRESENT: EOMI Ear exam: PRESENT: normal external ear exam Mouth exam: PRESENT: moist Neck exam: PRESENT: full ROM Respiratory exam: PRESENT: clear to auscultation garry Cardiovascular exam: PRESENT: RRR GI/Abdominal exam: PRESENT: tenderness - rlq Rectal exam: PRESENT: deferred Extremities exam: PRESENT: full ROM Musculoskeletal exam: PRESENT: full ROM Neurological exam: PRESENT: alert, awake, oriented to person, oriented to place Psychiatric exam: PRESENT: appropriate affect Skin exam: PRESENT: dry Results Laboratory Results: 01/24/20 21:51 01/24/20 01/24/20 01/24/20 17:29 17:29 19:55 WBC 9.2 RBC 4.53 Hgb 14.6 Hct 41.7 MCV 92 MCH 32.3 MCHC 35.1 RDW 13.8 Plt Count 217 Seg Neutrophils % 74.3 Sodium 135.2 L Potassium 4.3 Chloride 96 L Carbon Dioxide 31 H Anion Gap 8 BUN 15 Creatinine 0.81 Est GFR ( Amer) > 60 Glucose 108 Lactic Acid 1.1 Calcium 10.2 Total Bilirubin 1.0 AST 36 Alkaline Phosphatase 51 Total Protein 7.8 Albumin 4.9 Lipase 55.5 Urine Color Urine Appearance Urine pH Ur Specific [place] Urine Protein Urine Glucose (UA) Urine Ketones Urine Blood Urine Nitrite Ur Leukocyte Esterase Urine RBC (Auto) 01/24/20 01/24/20 20:55 21:51 WBC 7.4 RBC 4.08 L Hgb 13.0 L Hct 37.7 L MCV 93 MCH 31.9 MCHC 34.4 RDW 13.8 Plt Count 182 Seg Neutrophils % 69.1 Sodium Potassium Chloride Carbon Dioxide Anion Gap BUN Creatinine Est GFR ( Amer) Glucose Lactic Acid Calcium Total Bilirubin AST Alkaline Phosphatase Total Protein Albumin Lipase Urine Color YELLOW Urine Appearance CLEAR Urine pH 5.0 Ur Specific [place] > 1.060 Urine Protein NEGATIVE Urine Glucose (UA) NEGATIVE Urine Ketones NEGATIVE Urine Blood NEGATIVE Urine Nitrite NEGATIVE Ur Leukocyte Esterase NEGATIVE Urine RBC (Auto) 1 Impressions: Abdomen/Pelvis CT 01/24/20 17:06 IMPRESSION: 1. The findings as detailed above suggest appendicitis and mild phlegmon. The appendix appears to be retrocecal in location. Correlation suggested. Assessment & Plan - Plan Summary Plan Summary: impression prob perforated appendicitis iwth phlegmon cardoversion for afib this am currently on xeralto recommend pt admitted to medicine service iwth surgical consult 'will stop xeralto and start iv heparin' iv abx medically rx the appendicitis and if successful, later interval appendectomy surgery will follow.
[2020-01-25] MEDS: CEFTRIAXONE 2 GM/D5W RTU 2 GM/50 ML RTUPB IV SCH (09:54)
--- NOTE | 2020-01-25 09:56 | PDOC PROGRESS REPORT ---
Subjective Progress Note for:: 01/25/20 Subjective:: 54 year old male with a history of atrial fibrillation on chronic a nticoagulation, hypertension, remote history of Kvmhh-Wctztahbg-Kebwu status post ablation, and multiple orthopedic surgeries who has been treated for the past several months for atrial fibrillation and has been anticoagulated. He went for a cardioversion this morning. He said his abdominal pain started last night. It is in the right lower quadrant. He has not had any fevers but thinks he has had a couple of chills. He has not had any nausea, vomiting, or diarrhea. He called his primary care provider at the [facility] and they recommended him taking some laxatives, which he said provided no benefit. He also felt like he had some swelling on the left side of his abdomen. When it was not getting any better he decided to come to the ER to have it evaluated. His labs and vitals are all normal. He did have evidence of appendicitis on abdominal CT. Because he is on Xarelto, the decision was made to admit him to the medical service and place him on IV antibiotics and a heparin drip with surgery consulting. 01/25/2020-patient is still n.p.o. admitted for ascites. Patient has cardioversi on yesterday morning at [facility] and that he is on Xarelto. Last dose of Xarelto is yesterday morning. Patient is presently on IV heparin drip. Surgery on board. Discussed the case with Dr. García Leija he is going to see the patient from a cardiology perspective. Complaining of soreness in the abdomen. Comfortably in the bed communicating well. Reason For Visit: ACUTE APPENDICITIS Physical Exam Vital Signs: Temp Pulse Resp BP Pulse Ox 98.2 F 68 20 124/72 100 01/25/20 07:48 01/25/20 07:48 01/25/20 07:48 01/25/20 07:48 01/25/20 07:48 Intake & Output 01/24/20 01/25/20 01/26/20 06:59 06:59 06:59 Intake Total 2185 Balance 2185 Weight 112.1 kg General appearance: PRESENT: no acute distress, well-developed Head exam: PRESENT: atraumatic Eye exam: PRESENT: PERRLA Ear exam: PRESENT: normal external ear exam Mouth exam: PRESENT: neck supple Neck exam: ABSENT: carotid bruit, JVD, lymphadenopathy, thyromegaly Respiratory exam: PRESENT: decreased breath sounds Cardiovascular exam: PRESENT: RRR. ABSENT: diastolic murmur, rubs, systolic murmur GI/Abdominal exam: PRESENT: guarding, rebound, tenderness, other - Complaining of soreness of the abdomen on gentle palpation. Rectal exam: PRESENT: deferred Extremities exam: PRESENT: full ROM. ABSENT: calf tenderness, clubbing, pedal edema Neurological exam: PRESENT: alert, awake, oriented to person, oriented to place, oriented to time, oriented to situation, CN II-XII grossly intact. ABSENT: motor sensory deficit Psychiatric exam: PRESENT: appropriate affect, normal mood. ABSENT: homicidal ideation, suicidal ideation Results Laboratory Results: 01/24/20 21:51 01/25/20 02:43 01/24/20 01/24/20 01/24/20 17:29 17:29 19:55 WBC 9.2 RBC 4.53 Hgb 14.6 Hct 41.7 MCV 92 MCH 32.3 MCHC 35.1 RDW 13.8 Plt Count 217 Seg Neutrophils % 74.3 Sodium 135.2 L Potassium 4.3 Chloride 96 L Carbon Dioxide 31 H Anion Gap 8 BUN 15 Creatinine 0.81 Est GFR ( Amer) > 60 Glucose 108 Lactic Acid 1.1 Calcium 10.2 Total Bilirubin 1.0 AST 36 Alkaline Phosphatase 51 Total Protein 7.8 Albumin 4.9 Lipase 55.5 Urine Color Urine Appearance Urine pH Ur Specific [place] Urine Protein Urine Glucose (UA) Urine Ketones Urine Blood Urine Nitrite Ur Leukocyte Esterase Urine RBC (Auto) 01/24/20 01/24/20 01/25/20 20:55 21:51 02:43 WBC 7.4 RBC 4.08 L Hgb 13.0 L Hct 37.7 L MCV 93 MCH 31.9 MCHC 34.4 RDW 13.8 Plt Count 182 Seg Neutrophils % 69.1 Sodium 134.5 L Potassium 3.9 Chloride 99 Carbon Dioxide 30 Anion Gap 6 BUN 12 Creatinine 0.79 Est GFR ( Amer) > 60 Glucose 106 Lactic Acid Calcium 8.8 Total Bilirubin AST Alkaline Phosphatase Total Protein Albumin Lipase Urine Color YELLOW Urine Appearance CLEAR Urine pH 5.0 Ur Specific [place] > 1.060 Urine Protein NEGATIVE Urine Glucose (UA) NEGATIVE Urine Ketones NEGATIVE Urine Blood NEGATIVE Urine Nitrite NEGATIVE Ur Leukocyte Esterase NEGATIVE Urine RBC (Auto) 1 Impressions: Abdomen/Pelvis CT 01/24/20 17:06 IMPRESSION: 1. The findings as detailed above suggest appendicitis and mild phlegmon. The appendix appears to be retrocecal in location. Correlation suggested. Assessment and Plan - Diagnosis (1) Acute appendicitis Qualifiers: Acute appendicitis type: with localized peritonitis Appendicitis gangrene presence: without gangrene Appendicitis perforation presence: without perfora tion Appendicitis abscess presence: without abscess Qualified Code(s): K35.30 - Acute appendicitis with localized peritonitis, without perforation or gangrene Is this a current diagnosis for this admission?: Yes Plan: Because he has been on Xarelto, the plan is to admit him to the hospitalist service and put him on antibiotics and a heparin drip and then reevaluate him in a few days to see if he needs surgery at that point. We will put him on Rocephin and Flagyl. Clear liquids and medications only. Dr. Wade saw him in the ER and will be following him. 01/25/2020-surgical team is following the patient. Xarelto on hold, he is on heparin drip at this time. He is also receiving IV Rocephin and Flagyl at this time. He is n.p.o. as per the surgery. Case was discussed with Dr. García Leija for cardiology input. (2) Atrial fibrillation status post cardioversion Is this a current diagnosis for this admission?: Yes Plan: Currently in a sinus rhythm. Admitting to telemetry. We will continue metoprolol. 01/25/2020-patient has history of atrial fibrillation on anticoagulation had a cardioversion was done at a [facility] yesterday morning. Patient on heparin drip at this time Xarelto is on hold. (3) Chronic anticoagulation Is this a current diagnosis for this admission?: Yes Plan: Xarelto on hold, heparin drip initiated in case he needs surgery. (4) Hypertension Qualifiers: Hypertension type: essential hypertension Qualified Code(s): I10 - Essenti al (primary) hypertension Is this a current diagnosis for this admission?: No Plan: Continue lisinopril and HCTZ. 01/25/2020-blood pressure today is 99/51. To hold antihypertensives and to start him on gentle IV hydration.
[2020-01-25] MEDS ORDERED: NORMAL SALINE 1000 ML 1,000 ML IV PRN (09:57)
[2020-01-25] MEDS: HEPARIN SODIUM,PORCINE/D5W 25,000 UNIT/250 ML RTUINJ IV PRN (11:58)
--- NOTE | 2020-01-25 13:40 | PDOC CONSULTATION ---
Consultation Consult Date: 01/25/20 Provider Consulted: RIVKA VERONICA Consult reason:: Atrial fibrillation status post cardioversion History of Present Illness Admission Date/PCP: 01/24/20 20:[facility] Patient complains of: Abdominal pain History of Present Illness: MADDIE WALSH is a 54 year old male With the following problems 1. Atrial fibrillation 2. WPW syndrome status post ablation Patient had elective cardioversion for atrial fibrillation yesterday at [facility]. Subsequently he developed abdominal pain and has been found to have acute appendicitis. Surgery is being contemplated. With this in mind systemic anticoagulation has been interrupted. He is presently being treated with unfractionated heparin for systemic anticoagulation with plans to transition back to oral agents post surgery. Presently he denies any symptoms other than abdominal pain. He was quite symptomatic with atrial fibrillation prior to cardioversion. Past Medical History Cardiac Medical History: Reports: Atrial Fibrillation, Myocardial Infarction, Hypertension Musculoskeltal Medical History: Reports: Arthritis Psychiatric Medical History: Denies: Depression Past Surgical History Past Surgical History: Reports: Orthopedic Surgery, Other - WPW ablation Social History Lives with: Family - Daily Smoking Status: Former Smoker Frequency of Alcohol Use: Occasional Hx Recreational Drug Use: No Drugs: None Hx Prescription Drug Abuse: No Family History Family History: Hypertension Parental Family History Reviewed: Yes - No familial illnesses Children Family History Reviewed: NA Sibling(s) Family History Reviewed.: NA Medication/Allergy Home Medications: Lisinopril/Hydrochlorothiazide [Lisinopril-Hctz 20-25 mg Tab] 1 each PO DAILY 01/25/20 Metoprolol Tartrate [Lopressor 50 mg Tablet] 50 mg PO Q12 01/25/20 Rivaroxaban [Xarelto] 20 mg PO DAILY 01/25/20 Tramadol HCl [Ultram 50 mg Tablet] 50 mg PO Q12 01/25/20 Allergies/Adverse Reactions: No Known Allergies Allergy (Verified 09/07/17 13:35) Review of Systems Constitutional: PRESENT: as per HPI Eyes: PRESENT: as per HPI Gastrointestinal: PRESENT: abdominal pain Physical Exam Vital Signs: Temp Pulse Resp BP Pulse Ox 98.0 F 57 L 18 111/66 97 01/25/20 11:19 01/25/20 11:19 01/25/20 11:19 01/25/20 11:19 01/25/20 11:19 Intake & Output 01/24/20 01/25/20 01/26/20 06:59 06:59 06:59 Intake Total 2185 1318 Balance 2185 1318 Weight 112.1 kg General appearance: PRESENT: no acute distress, well-developed, well-nourished Head exam: PRESENT: atraumatic, normocephalic Eye exam: PRESENT: conjunctiva pink, EOMI Respiratory exam: PRESENT: chest wall tenderness, symmetrical, unlabored Cardiovascular exam: PRESENT: RRR, +S1, +S2 Pulses: PRESENT: normal radial pulses GI/Abdominal exam: PRESENT: guarding, tenderness Rectal exam: PRESENT: deferred Neurological exam: PRESENT: alert, awake, oriented to person, oriented to place, oriented to time, oriented to situation Psychiatric exam: PRESENT: appropriate affect Skin exam: PRESENT: dry, intact Results Laboratory Results: 01/24/20 21:51 01/25/20 02:43 01/24/20 01/24/20 01/24/20 17:29 17:29 19:55 WBC 9.2 RBC 4.53 Hgb 14.6 Hct 41.7 MCV 92 MCH 32.3 MCHC 35.1 RDW 13.8 Plt Count 217 Seg Neutrophils % 74.3 Sodium 135.2 L Potassium 4.3 Chloride 96 L Carbon Dioxide 31 H Anion Gap 8 BUN 15 Creatinine 0.81 Est GFR ( Amer) > 60 Glucose 108 Lactic Acid 1.1 Calcium 10.2 Total Bilirubin 1.0 AST 36 Alkaline Phosphatase 51 Total Protein 7.8 Albumin 4.9 Lipase 55.5 Urine Color Urine Appearance Urine pH Ur Specific [place] Urine Protein Urine Glucose (UA) Urine Ketones Urine Blood Urine Nitrite Ur Leukocyte Esterase Urine RBC (Auto) 01/24/20 01/24/20 01/25/20 20:55 21:51 02:43 WBC 7.4 RBC 4.08 L Hgb 13.0 L Hct 37.7 L MCV 93 MCH 31.9 MCHC 34.4 RDW 13.8 Plt Count 182 Seg Neutrophils % 69.1 Sodium 134.5 L Potassium 3.9 Chloride 99 Carbon Dioxide 30 Anion Gap 6 BUN 12 Creatinine 0.79 Est GFR ( Amer) > 60 Glucose 106 Lactic Acid Calcium 8.8 Total Bilirubin AST Alkaline Phosphatase Total Protein Albumin Lipase Urine Color YELLOW Urine Appearance CLEAR Urine pH 5.0 Ur Specific [place] > 1.060 Urine Protein NEGATIVE Urine Glucose (UA) NEGATIVE Urine Ketones NEGATIVE Urine Blood NEGATIVE Urine Nitrite NEGATIVE Ur Leukocyte Esterase NEGATIVE Urine RBC (Auto) 1 EKG Comments: Telemetry shows sinus rhythm at 72 bpm Twelve-lead EKG 01/24/2020. Independently viewed by me. Sinus rhythm, 97 bpm, normal AV conduction, QTC is 478 ms Twelve-lead EKG 10/21/2019. Independently reviewed by me. Atrial fibrillation 72 bpm Impressions: Abdomen/Pelvis CT 01/24/20 17:06 IMPRESSION: 1. The findings as detailed above suggest appendicitis and mild phlegmon. The appendix appears to be retrocecal in location. Correlation suggested. Assessment & Plan - Diagnosis (1) Acute appendicitis Qualifiers: Acute appendicitis type: with localized peritonitis Appendicitis gangrene presence: without gangrene Appendicitis perforation presence: without per foration Appendicitis abscess presence: without abscess Qualified Code(s): K35.30 - Acute appendicitis with localized peritonitis, without perforation or gangrene Is this a current diagnosis for this admission?: Yes Plan: Plans for surgery. Systemic anticoagulation has been interrupted. Unfractionated heparin to be continued since cardioversion was done yesterday. Plans to resume oral anticoagulation as soon as feasible post surgery. (2) Atrial fibrillation status post cardioversion Is this a current diagnosis for this admission?: Yes Plan: Maintaining sinus rhythm Patient has to continue systemic anticoagulation. This has been interrupted on account of surgery that is deemed necessary. Plans to resume systemic anticoagulation as soon as feasible. (3) Chronic anticoagulation Is this a current diagnosis for this admission?: Yes Plan: Have to continue chronic systemic anticoagulation.
[2020-01-25] MEDS: RINGERS SOLUTION,LACTATED 1,000 ML IV PRN (15:42)
--- NOTE | 2020-01-25 17:39 | PDOC PROGRESS REPORT ---
Subjective Progress Note for:: 01/25/20 Subjective:: Still with RLQ pains not any worse than yesterday. Hungry. Has flatus. Reason For Visit: ACUTE APPENDICITIS Physical Exam Vital Signs: Temp Pulse Resp BP Pulse Ox 98.0 F 59 L 18 111/66 97 01/25/20 11:19 01/25/20 14:00 01/25/20 11:19 01/25/20 11:19 01/25/20 11:19 Intake & Output 01/24/20 01/25/20 01/26/20 06:59 06:59 06:59 Intake Total 2185 1706 Balance 2185 1706 Weight 112.1 kg Exam: Abdomen is soft with tenderness RLQ Results Laboratory Results: 01/24/20 21:51 01/25/20 02:43 01/24/20 01/24/20 01/24/20 17:29 17:29 19:55 WBC 9.2 RBC 4.53 Hgb 14.6 Hct 41.7 MCV 92 MCH 32.3 MCHC 35.1 RDW 13.8 Plt Count 217 Seg Neutrophils % 74.3 Sodium 135.2 L Potassium 4.3 Chloride 96 L Carbon Dioxide 31 H Anion Gap 8 BUN 15 Creatinine 0.81 Est GFR ( Amer) > 60 Glucose 108 Lactic Acid 1.1 Calcium 10.2 Total Bilirubin 1.0 AST 36 Alkaline Phosphatase 51 Total Protein 7.8 Albumin 4.9 Lipase 55.5 Urine Color Urine Appearance Urine pH Ur Specific [place] Urine Protein Urine Glucose (UA) Urine Ketones Urine Blood Urine Nitrite Ur Leukocyte Esterase Urine RBC (Auto) 01/24/20 01/24/20 01/25/20 20:55 21:51 02:43 WBC 7.4 RBC 4.08 L Hgb 13.0 L Hct 37.7 L MCV 93 MCH 31.9 MCHC 34.4 RDW 13.8 Plt Count 182 Seg Neutrophils % 69.1 Sodium 134.5 L Potassium 3.9 Chloride 99 Carbon Dioxide 30 Anion Gap 6 BUN 12 Creatinine 0.79 Est GFR ( Amer) > 60 Glucose 106 Lactic Acid Calcium 8.8 Total Bilirubin AST Alkaline Phosphatase Total Protein Albumin Lipase Urine Color YELLOW Urine Appearance CLEAR Urine pH 5.0 Ur Specific [place] > 1.060 Urine Protein NEGATIVE Urine Glucose (UA) NEGATIVE Urine Ketones NEGATIVE Urine Blood NEGATIVE Urine Nitrite NEGATIVE Ur Leukocyte Esterase NEGATIVE Urine RBC (Auto) 1 Impressions: Abdomen/Pelvis CT 01/24/20 17:06 IMPRESSION: 1. The findings as detailed above suggest appendicitis and mild phlegmon. The appendix appears to be retrocecal in location. Correlation suggested. Assessment & Plan - Diagnosis (1) Acute appendicitis Qualifiers: Acute appendicitis type: with localized peritonitis Appendicitis gangrene presence: without gangrene Appendicitis perforation presence: without perforation Appendicitis abscess presence: without abscess Qualified Code(s): K35.30 - Acute appendicitis with localized peritonitis, without perforation or gangrene Is this a current diagnosis for this admission?: Yes (2) Atrial fibrillation status post cardioversion Is this a current diagnosis for this admission?: Yes - Time Critical Time spent with patient: 15-24 minutes - Inpatient Certification Medical Necessity: Need For IV Fluids, Need for IV Antibiotics - Plan Summary Plan Summary: 54-year-old male started complaining of right lower quadrant pains yesterday morning after his cardioversion for atrial fib which was successful. Went to ED yesterday where a CT scan of the abdomen revealed acute appendicitis. Patient's last intake of Xarelto was yesterday morning around 5:30 AM. His white count has been normal and about 7.4 this morning. He remains afebrile. Plans: Continue with IV antibiotics and hydration. Reevaluate WBC in a.m. Reevaluate patient in a.m. and if getting better they will continue with IV antibiotics. However if clinically gets worse with elevated white count he may need to be taken to the OR for appendectomy. This will be ideal since this will be about 2 days after Xarelto intake.
[2020-01-26] MEDS: METRONIDAZOLE 500 MG/NS RTU 500 MG/100 ML RTUPB IV SCH ×4 (00:03→17:00)
[2020-01-26] MEDS: RINGERS SOLUTION,LACTATED 1,000 ML IV PRN ×4 (01:19→15:27)
[2020-01-26] MEDS: HEPARIN SODIUM,PORCINE/D5W 25,000 UNIT/250 ML RTUINJ IV PRN (01:20)
[2020-01-26 06:15] LABS: ABSOLUTE EOSINOPHILS # (AUTO) 0.2 10^3/uL (0.0-0.6); ABSOLUTE LYMPHOCYTES (AUTO) 1.5 10^3/uL (0.5-4.7); ABSOLUTE MONOCYTES (AUTO) 0.4 10^3/uL (0.1-1.4); ABSOLUTE NEUT (AUTO) 2.8 10^3/uL (1.7-8.2); BASOPHILS % (AUTO) 0.7 % (0-2); EOSINOPHILS % (AUTO) 4.6 % (0-6); HEMATOCRIT 33.9 % (37.9-51.0); HEMOGLOBIN 12.1 g/dL (13.5-17.0); LYMPHOCYTES % (AUTO) 29.5 % (13-45); MEAN CORPUSCULAR HEMOGLOBIN 32.9 pg (27.0-33.4); MEAN CORPUSCULAR HGB CONC 35.7 g/dL (32.0-36.0); MEAN CORPUSCULAR VOLUME 92 fl (80-97); MONOCYTES % (AUTO) 8.5 % (3-13); PLATELET COUNT 145 10^3/uL (150-450); RED BLOOD COUNT 3.68 10^6/uL (4.35-5.55); RED CELL DISTRIBUTION WIDTH 13.6 % (11.5-14.0); SEGMENTED NEUTROPHILS % (AUTO) 56.7 % (42-78); TOTAL CELLS COUNTED % (AUTO) 100 %
[2020-01-26 06:36] LABS: ALBUMIN 3.6 g/dL (3.5-5.0); ALKALINE PHOSPHATASE 42 U/L (38-126); ANION GAP 5 (5-19); ASPARTATE AMINO TRANSFERASE 29 U/L (17-59); BILIRUBIN,TOTAL 0.6 mg/dL (0.2-1.3); BLOOD UREA NITROGEN 12 mg/dL (7-20); CALCIUM 8.9 mg/dL (8.4-10.2); CARBON DIOXIDE 29 mmol/L (22-30); CHLORIDE 103 mmol/L (98-107); GLUCOSE 98 mg/dL (75-110); POTASSIUM 4.1 mmol/L (3.6-5.0); TOTAL PROTEIN 6.2 g/dL (6.3-8.2)
[2020-01-26] MEDS: MORPHINE SULFATE 10 MG/ML INJ IV PRN ×3 (08:04→22:36)
[2020-01-26 08:05] LABS: APPEARANCE,URINE SLIGHTLY-CLOUDY; BILIRUBIN,URINE NEGATIVE (NEGATIVE); COLOR,URINE YELLOW; GLUCOSE, URINE NEGATIVE (NEGATIVE); KETONES,URINE NEGATIVE (NEGATIVE); LEUKOCYTE ESTERASE,URINE TRACE (NEGATIVE); NITRITE,URINE NEGATIVE (NEGATIVE); PROTEIN,URINE NEGATIVE (NEGATIVE); URINE SPECIFIC GRAVITY 1.014; UROBILINOGEN,URINE NEGATIVE mg/dL (<2.0)
[2020-01-26] MEDS ORDERED: SUCCINYLCHOLINE CHLORIDE INJ 200 MG/10 ML VIAL ONE (08:32)
[2020-01-26] MEDS ORDERED: ROCURONIUM BROMIDE INJ 50 MG/5 ML VIAL IV ONE (08:32)
[2020-01-26] MEDS: CEFTRIAXONE 2 GM/D5W RTU 2 GM/50 ML RTUPB IV SCH (09:01)
--- NOTE | 2020-01-26 09:25 | PDOC PROGRESS REPORT ---
Subjective Progress Note for:: 01/26/20 Subjective:: 54 year old male with a history of atrial fibrillation on chronic a nticoagulation, hypertension, remote history of Ctdbs-Ishfpptcx-Hfxav status post ablation, and multiple orthopedic surgeries who has been treated for the past several months for atrial fibrillation and has been anticoagulated. He went for a cardioversion this morning. He said his abdominal pain started last night. It is in the right lower quadrant. He has not had any fevers but thinks he has had a couple of chills. He has not had any nausea, vomiting, or diarrhea. He called his primary care provider at the [facility] and they recommended him taking some laxatives, which he said provided no benefit. He also felt like he had some swelling on the left side of his abdomen. When it was not getting any better he decided to come to the ER to have it evaluated. His labs and vitals are all normal. He did have evidence of appendicitis on abdominal CT. Because he is on Xarelto, the decision was made to admit him to the medical service and place him on IV antibiotics and a heparin drip with surgery consulting. 01/25/2020-patient is still n.p.o. admitted for ascites. Patient has cardioversi on yesterday morning at [facility] and that he is on Xarelto. Last dose of Xarelto is yesterday morning. Patient is presently on IV heparin drip. Surgery on board. Discussed the case with Dr. García Leija he is going to see the patient from a cardiology perspective. Complaining of soreness in the abdomen. Comfortably in the bed communicating well. 01/26/[id number]-rddv-old male admitted with appendicitis patient has a recent history of cardioversion for atrial fibrillation on Xarelto. At this moment patient is on IV heparin drip, Xarelto is on hold. Last dose of Xarelto is more than [address] da silva is planning to take him to the OR today. Requested the nurse to hold heparin for now. Reason For Visit: ACUTE APPENDICITIS Physical Exam Vital Signs: Temp Pulse Resp BP Pulse Ox 97.9 F 69 15 125/89 H 100 01/26/20 08:06 01/26/20 08:06 01/26/20 08:06 01/26/20 08:06 01/26/20 08:06 Intake & Output 01/25/20 01/26/20 01/27/20 06:59 06:59 06:59 Intake Total 2185 3245 1133 Balance 2185 3245 1133 Weight 112.1 kg 111.8 kg General appearance: PRESENT: no acute distress, well-developed Head exam: PRESENT: atraumatic Eye exam: PRESENT: PERRLA Ear exam: PRESENT: normal external ear exam Mouth exam: PRESENT: neck supple Teeth exam: PRESENT: poor dentation Neck exam: ABSENT: carotid bruit, JVD, lymphadenopathy, thyromegaly Respiratory exam: PRESENT: decreased breath sounds Cardiovascular exam: PRESENT: RRR. ABSENT: diastolic murmur, rubs, systolic murmur Pulses: PRESENT: normal dorsalis pedis pul GI/Abdominal exam: PRESENT: normal bowel sounds, soft. ABSENT: distended, guarding, mass, organolmegaly, rebound, tenderness Rectal exam: PRESENT: deferred Extremities exam: PRESENT: full ROM. ABSENT: calf tenderness, clubbing, pedal edema Neurological exam: PRESENT: alert, awake, oriented to person, oriented to place, oriented to time, oriented to situation, CN II-XII grossly intact. ABSENT: motor sensory deficit Psychiatric exam: PRESENT: appropriate affect, normal mood. ABSENT: homicidal ideation, suicidal ideation Results Laboratory Results: 01/26/20 05:15 01/26/20 05:15 01/26/20 01/26/20 01/26/20 05:15 05:15 07:49 WBC 5.0 RBC 3.68 L Hgb 12.1 L Hct 33.9 L MCV 92 MCH 32.9 MCHC 35.7 RDW 13.6 Plt Count 145 L Seg Neutrophils % 56.7 Sodium 136.5 L Potassium 4.1 Chloride 103 Carbon Dioxide 29 Anion Gap 5 BUN 12 Creatinine 0.72 Est GFR ( Amer) > 60 Glucose 98 Calcium 8.9 Magnesium 2.0 Total Bilirubin 0.6 AST 29 Alkaline Phosphatase 42 Total Protein 6.2 L Albumin 3.6 Urine Color YELLOW Urine Appearance SLIGHTLY-CLOUDY Urine pH 6.0 Ur Specific [place] 1.014 Urine Protein NEGATIVE Urine Glucose (UA) NEGATIVE Urine Ketones NEGATIVE Urine Blood NEGATIVE Urine Nitrite NEGATIVE Ur Leukocyte Esterase TRACE H Urine WBC (Auto) 1 Urine RBC (Auto) 3 Impressions: Abdomen/Pelvis CT 01/24/20 17:06 IMPRESSION: 1. The findings as detailed above suggest appendicitis and mild phlegmon. The appendix appears to be retrocecal in location. Correlation gina solorzano. Assessment and Plan - Diagnosis (1) Acute appendicitis Qualifiers: Acute appendicitis type: with localized peritonitis Appendicitis gangrene presence: without gangrene Appendicitis perforation presence: without perforation Appendicitis abscess presence: without abscess Qualified Code(s): K35.30 - Acute appendicitis with localized peritonitis, without perforation or gangrene Is this a current diagnosis for this admission?: Yes Plan: Because he has been on Xarelto, the plan is to admit him to the hospitalist service and put him on antibiotics and a heparin drip and then reevaluate him in a few days to see if he needs surgery at that point. We will put him on Rocephin and Flagyl. Clear liquids and medications only. Dr. Wade saw him in the ER and will be following him. 01/25/2020-surgical team is following the patient. Xarelto on hold, he is on heparin drip at this time. He is also receiving IV Rocephin and Flagyl at this time. He is n.p.o. as per the surgery. Case was discussed with Dr. García Leija for cardiology input. 01/26/2020-patient is going to the OR today for appendicectomy. Heparin drip will be on hold. Patient agreed and given the consent for appendicectomy today. (2) Atrial fibrillation status post cardioversion Is this a current diagnosis for this admission?: Yes Plan: Currently in a sinus rhythm. Admitting to telemetry. We will continue metoprolol. 01/25/2020-patient has history of atrial fibrillation on anticoagulation had a cardioversion was done at a [facility] yesterday morning. Patient on heparin drip at this time Xarelto is on hold. 01/26/2020-patient has history of chronic longstanding atrial fibrillation status post cardioversion. On Xarelto, last dose of Xarelto is more than 48 hours ago. (3) Chronic anticoagulation Is this a current diagnosis for this admission?: Yes Plan: Xarelto on hold, heparin drip initiated in case he needs surgery. 01/26/2020-patient is going to OR today for appendicectomy and heparin drip will be on hold. (4) Hypertension Qualifiers: Hypertension type: essential hypertension Qualified Code(s): I10 - Essential (primary) hypertension Is this a current diagnosis for this admission?: No Plan: Continue lisinopril and HCTZ. 01/25/2020-blood pressure today is 99/51. To hold antihypertensives and to start him on gentle IV hydration. 01/26/2020-latest blood pressure is 125/89. Stable. Blood pressure medications are on hold at this time.
[2020-01-26] MEDS ORDERED: ONDANSETRON HCL INJ/PF 4 MG/2 ML SDV ONE (10:26)
[2020-01-26] MEDS ORDERED: MIDAZOLAM 2 MG/2 ML INJ ONE (10:26)
[2020-01-26] MEDS ORDERED: FENTANYL CITRATE INJ/PF 100 MCG/2 ML AMPUL ONE (10:26)
[2020-01-26] MEDS ORDERED: PROPOFOL INJ 200 MG/20 ML VIAL IV ONE (10:27)
[2020-01-26] MEDS ORDERED: HYDROMORPHONE HCL INJ/PF 2 MG/ML AMPULE ONE ×2 (10:27→17:24)
[2020-01-26] MEDS ORDERED: BUPIVACAINE HCL 0.25 % INJ/PF (2.5 MG/1 ML) 30 ML VIAL ONE (10:54)
[2020-01-26] MEDS ORDERED: FENTANYL CITRATE INJ/PF 100 MCG/2 ML AMPUL IV PRN ×3 (12:41)
[2020-01-26] MEDS ORDERED: DIPHENHYDRAMINE HCL 50 MG/ML VIAL IV PRN (12:41)
[2020-01-26] MEDS ORDERED: PROMETHAZINE HCL INJ 25 MG/1 ML VIAL IV PRN (12:41)
[2020-01-26] MEDS ORDERED: MORPHINE SULFATE 10 MG/ML INJ IV PRN (12:41)
[2020-01-26] MEDS ORDERED: MEPERIDINE HCL/PF INJ 25 MG/1 ML DISP.SYRIN IV PRN (12:41)
[2020-01-26] MEDS ORDERED: MORPHINE SULFATE 10 MG/ML INJ ONE (14:05)
[2020-01-26] MEDS ORDERED: KETOROLAC TROMETHAMINE 60 MG/2 ML SDV ONE (14:10)
[2020-01-26] MEDS ORDERED: KETOROLAC TROMETHAMINE 60 MG/2 ML SDV IV PRN (14:46)
--- NOTE | 2020-01-26 15:16 | Operative Report ---
Operative Report DATE OF SURGERY: 01/26/20 PREOPERATIVE DIAGNOSIS: Acute appendicitis POSTOPERATIVE DIAGNOSIS: Same OPERATION: Laparoscopic appendectomy SURGEON: MK GALLEGO ANESTHESIA: GA TISSUE REMOVED OR ALTERED: Appendix COMPLICATIONS: None ESTIMATED BLOOD LOSS: 10 cc QUANTITATIVE BLOOD LOSS: 10 INTRAOPERATIVE FINDINGS: Acutely inflamed appendix adherent to the surrounding structures. It was noted to be going towards the liver. PROCEDURE: After adequate general anesthesia patient was placed in supine position and the abdomen prepped and draped in the usual sterile fashion. Appropriate timeout was then called. Infraumbilical elliptical incision was made fascia identified grabbed with Danny clamps on each side and divided between the Danny clamps. The fascia was bluntly opened with a Heather clamp. 2 sutures of 0 Vicryl will were placed on each side of the fascia stay sutures. A central trocar was inserted through the fascia to the abdominal cavity and CO2 was then insufflated to a pressure of 15 mmHg. Next 2 other trochars were placed 5 mm in the suprapubic and 12 mm in the left lower quadrant under direct vision. Next graspers and and a Kierra were then placed through the 2 other openings and the appendix was identified to be inflamed and going up towards the liver. Patient was then placed in Trendelenburg position and tilted to the left for better exposure of the appendix. The appendix was grabbed at the tip but mesoappendix was markedly swollen and quite more difficult to dissected from this and. The base of the appendix appears to be not involved and a window was then placed through this area using [place] dissector. A bigger opening was made with the use of the harmonic saray. With the use of 45mm Endo STEPHEN blue load the base of the appendix was subsequently stapled and divided. The mesoappendix was then divided with the use of harmonic saray. The appendix was then placed in an Endobag and pulled out through the umbilical port. The operative site was then irrigated and no active bleeding noted. Is #15 round drain was then placed through the suprapubic port and placed in the area of the liver and the appendectomy stump. The omentum was then placed over the appendiceal stump area. All the trochars were then removed and CO2 allowed to come out to the trocar sites. The fascial defect was then closed with a [id number] suture using 0 Vicryl and the 2 stay sutures tied together for better closure. Local incision was then infiltrated through the fascia defect as well as rolled the incision sites. The drain was then anchored to the suprapubic area using 2-0 silk. The 2 other incisions were then closed with running subcuticular 4-0 Vicryl undyed. Steri-Strips placed over the operative sites. Needle instrument sponge count were all correct. Patient then brought to the recovery room in satisfactory condition.
[2020-01-26] MEDS ORDERED: HYDROMORPHONE HCL INJ/PF 2 MG/ML AMPULE IV ONE (17:45)
[2020-01-26] MEDS: HYDROMORPHONE HCL INJ/PF 2 MG/ML AMPULE IV PRN (20:24)
--- NOTE | 2020-01-26 21:17 | RADIOLOGY REPORT (SQ) ---
CLINICAL INDICATION: r/o PE. . TECHNIQUE: CT arteriography was obtained of the chest with multiplanar MIP and/or 3-D angiographic reconstructions. This exam was performed according to our departmental dose-optimization program, which includes automated exposure control, adjustment of the mA and/or kV according to patient size and/or use of iterative reconstruction techniques. COMPARISON: None. CORRELATION: None. FINDINGS: Dilute and heterogeneous contrast bolus. Average Hounsfield unit measurement within main pulmonary artery segment of 187. Artifact from venous opacification. Motion artifact There is no central pulmonary was. Branch vessels are not well seen. Thoracic aorta is of normal caliber. The heart is enlarged. No pericardial effusion. No bulky mediastinal adenopathy. The lungs demonstrate dependent airspace disease mostly atelectasis. Detail obscured by motion. No significant pleural fluid. No pneumothorax. Visualized abdominal contents demonstrate a small amount of free intraperitoneal air, postsurgical. Visualized bones are unremarkable. IMPRESSION: Dilute contrast bolus. No central pulmonary embolus. Imaging is degraded by patient motion, with resultant artifact. The best possible images were obtained. Dependent airspace disease mostly atelectasis. Small amount of free intraperitoneal air, postsurgical .
[2020-01-27] MEDS: METRONIDAZOLE 500 MG/NS RTU 500 MG/100 ML RTUPB IV SCH ×2 (00:58→05:01)
[2020-01-27] MEDS: HYDROMORPHONE HCL INJ/PF 2 MG/ML AMPULE IV PRN ×6 (00:59→22:24)
[2020-01-27] MEDS: RINGERS SOLUTION,LACTATED 1,000 ML IV PRN (01:05)
[2020-01-27] MEDS: MORPHINE SULFATE 10 MG/ML INJ IV PRN (03:10)
[2020-01-27 05:44] LABS: ABSOLUTE EOSINOPHILS # (AUTO) 0.2 10^3/uL (0.0-0.6); ABSOLUTE LYMPHOCYTES (AUTO) 1.1 10^3/uL (0.5-4.7); ABSOLUTE MONOCYTES (AUTO) 0.4 10^3/uL (0.1-1.4); BASOPHILS % (AUTO) 0.7 % (0-2); HEMATOCRIT 32.4 % (37.9-51.0); HEMOGLOBIN 11.4 g/dL (13.5-17.0); LYMPHOCYTES % (AUTO) 22.9 % (13-45); MEAN CORPUSCULAR HEMOGLOBIN 32.3 pg (27.0-33.4); MEAN CORPUSCULAR HGB CONC 35.3 g/dL (32.0-36.0); MEAN CORPUSCULAR VOLUME 92 fl (80-97); MONOCYTES % (AUTO) 7.7 % (3-13); PLATELET COUNT 161 10^3/uL (150-450); RED BLOOD COUNT 3.54 10^6/uL (4.35-5.55); RED CELL DISTRIBUTION WIDTH 13.7 % (11.5-14.0); SEGMENTED NEUTROPHILS % (AUTO) 64.7 % (42-78); TOTAL CELLS COUNTED % (AUTO) 100 %; WHITE BLOOD COUNT 4.7 10^3/uL (4.0-10.5)
[2020-01-27 06:07] LABS: ANION GAP 6 (5-19); BLOOD UREA NITROGEN 13 mg/dL (7-20); CALCIUM 8.7 mg/dL (8.4-10.2); CARBON DIOXIDE 27 mmol/L (22-30); CHLORIDE 103 mmol/L (98-107); GLUCOSE 92 mg/dL (75-110); POTASSIUM 3.8 mmol/L (3.6-5.0)
--- NOTE | 2020-01-27 07:39 | PDOC PROGRESS REPORT ---
Subjective Progress Note for:: 01/27/20 Subjective:: Last abdominal pains. Still having some right shoulder pains likely due to CO2 abdominal insufflation during surgery Reason For Visit: ACUTE APPENDICITIS Physical Exam Vital Signs: Temp Pulse Resp BP Pulse Ox 97.6 F 68 14 121/77 98 01/27/20 03:07 01/27/20 06:42 01/27/20 03:07 01/27/20 03:07 01/27/20 03:07 Intake & Output 01/26/20 01/27/20 01/28/20 06:59 06:59 06:59 Intake Total 3245 6063 Output Total 115 Balance 3245 5948 Weight 111.8 kg 115.3 kg Exam: Abdomen is soft with minimal tenderness. All incisions dressings are dry Results Laboratory Results: 01/27/20 04:58 01/27/20 04:58 01/26/20 01/27/20 01/27/20 07:49 04:58 04:58 WBC 4.7 RBC 3.54 L Hgb 11.4 L Hct 32.4 L MCV 92 MCH 32.3 MCHC 35.3 RDW 13.7 Plt Count 161 Seg Neutrophils % 64.7 Sodium 136.4 L Potassium 3.8 Chloride 103 Carbon Dioxide 27 Anion Gap 6 BUN 13 Creatinine 0.71 Est GFR ( Amer) > 60 Glucose 92 Calcium 8.7 Urine Color YELLOW Urine Appearance SLIGHTLY-CLOUDY Urine pH 6.0 Ur Specific [place] 1.014 Urine Protein NEGATIVE Urine Glucose (UA) NEGATIVE Urine Ketones NEGATIVE Urine Blood NEGATIVE Urine Nitrite NEGATIVE Ur Leukocyte Esterase TRACE H Urine WBC (Auto) 1 Urine RBC (Auto) 3 Impressions: Abdomen/Pelvis CT 01/24/20 17:06 IMPRESSION: 1. The findings as detailed above suggest appendicitis and mild phlegmon. The appendix appears to be retrocecal in location. Correlation suggested. Chest/Abdomen CTA 01/26/20 00:00 IMPRESSION: Dilute contrast bolus. No central pulmonary embolus. Imaging is degraded by patient motion, with resultant artifact. The best possible images were obtained. Dependent airspace disease mostly atelectasis. Small amount of free intraperitoneal air, postsurgical . Assessment & Plan - Diagnosis (1) Acute appendicitis Qualifiers: Acute appendicitis type: with localized peritonitis Appendicitis gangrene presence: without gangrene Appendicitis perforation presence: without perforation Appendicitis abscess presence: without abscess Qualified Code(s): K35.30 - Acute appendicitis with localized peritonitis, without perforation or gangrene Is this a current diagnosis for this admission?: Yes (2) Atrial fibrillation status post cardioversion Is this a current diagnosis for this admission?: Yes - Time Critical Time spent with patient: 15-24 minutes - Plan Summary Plan Summary: Postop day #1 post laparoscopic appendectomy for acute appendicitis. Plans: Okay to increase diet to regular Okay to resume Xarelto this afternoon hopefully prior to discharge. Abdominal wound drain was removed with a small amount of serosanguineous drainage. Patient may be discharged later today or tomorrow when eating and pains more tolerable with p.o. pain meds. Patient can be given Tylenol [id number] or prescribed Percocet 1 every 4-6 hours as needed for pain Arrange follow-up in the surgical clinic in 2 weeks Patient instructed not to do lifting more than 10 to 15 pounds until seen in the clinic. Okay to shower anytime
[2020-01-27] MEDS: LISINOPRIL 10 MG TABLET PO SCH (09:10)
[2020-01-27] MEDS: HYDROCHLOROTHIAZIDE 25 MG TABLET PO SCH (09:11)
[2020-01-27] MEDS: METOPROLOL TARTRATE 50 MG TABLET PO SCH ×2 (09:11→21:14)
[2020-01-27] MEDS: TRAMADOL HCL 50 MG TABLET PO SCH ×2 (09:11→21:14)
[2020-01-27] MEDS ORDERED: RIVAROXABAN 10 MG TABLET PO SCH (10:00)
[2020-01-27] MEDS ORDERED: (PENDING PHARMACY ID) (Lisinopril/Hydrochlorothiazide [Lisinopril-Hctz 20-25 Mg Tab] 1 EAC PO SCH (10:00)
--- NOTE | 2020-01-27 12:53 | PDOC PROGRESS REPORT ---
Subjective Progress Note for:: 01/27/20 Subjective:: 54 year old male with a history of atrial fibrillation on chronic a nticoagulation, hypertension, remote history of Smvoq-Umzdvtvcp-Veuir status post ablation, and multiple orthopedic surgeries who has been treated for the past several months for atrial fibrillation and has been anticoagulated. He went for a cardioversion this morning. He said his abdominal pain started last night. It is in the right lower quadrant. He has not had any fevers but thinks he has had a couple of chills. He has not had any nausea, vomiting, or diarrhea. He called his primary care provider [facility] and they recommended him taking some laxatives, which he said provided no benefit. He also felt like he had some swelling on the left side of his abdomen. When it was not getting any better he decided to come to the ER to have it evaluated. His labs and vitals are all normal. He did have evidence of appendicitis on abdominal CT. Because he is on Xarelto, the decision was made to admit him to the medical service and place him on IV antibiotics and a heparin drip with surgery consulting. 01/25/2020-patient is still n.p.o. admitted for ascites. Patient has cardioversi on yesterday morning at [facility] and that he is on Xarelto. Last dose of Xarelto is yesterday morning. Patient is presently on IV heparin drip. Surgery on board. Discussed the case with Dr. García Leija he is going to see the patient from a cardiology perspective. Complaining of soreness in the abdomen. Comfortably in the bed communicating well. 01/26/[id number]-tldc-old male admitted with appendicitis patient has a recent history of cardioversion for atrial fibrillation on Xarelto. At this moment patient is on IV heparin drip, Xarelto is on hold. Last dose of Xarelto is more than [address] da silva is planning to take him to the OR today. Requested the nurse to hold heparin for now. 01/27/[id number]-ifjq-old male with history of A. fib on Xarelto with recent card ioversion admitted with appendicitis. Status post successful appendicectomy yesterday. To restart on Xarelto today. Patient is still complaining of abdominal distention and bloating prefer to stay until tomorrow. Not on heparin drip at this time. Reason For Visit: ACUTE APPENDICITIS Physical Exam Vital Signs: Temp Pulse Resp BP Pulse Ox 98.0 F 56 L 17 118/80 97 01/27/20 11:17 01/27/20 11:17 01/27/20 11:17 01/27/20 11:17 01/27/20 11:17 Intake & Output 01/26/20 01/27/20 01/28/20 06:59 06:59 06:59 Intake Total 3245 6063 1000 Output Total 115 Balance 3245 5948 1000 Weight 111.8 kg 115.3 kg General appearance: PRESENT: no acute distress, well-developed Head exam: PRESENT: atraumatic Eye exam: PRESENT: PERRLA Mouth exam: PRESENT: dry mucosa Teeth exam: PRESENT: poor dentation Neck exam: ABSENT: carotid bruit, JVD, lymphadenopathy, thyromegaly Respiratory exam: PRESENT: clear to auscultation garry. ABSENT: rales, rhonchi, wheezes Cardiovascular exam: PRESENT: RRR. ABSENT: diastolic murmur, rubs, systolic murmur GI/Abdominal exam: PRESENT: normal bowel sounds, soft. ABSENT: distended, guarding, mass, organolmegaly, rebound, tenderness Rectal exam: PRESENT: deferred Extremities exam: PRESENT: full ROM. ABSENT: calf tenderness, clubbing, pedal edema Neurological exam: PRESENT: alert, awake, oriented to person, oriented to place, oriented to time, oriented to situation, CN II-XII grossly intact. ABSENT: motor sensory deficit Psychiatric exam: PRESENT: appropriate affect, normal mood. ABSENT: homicidal ideation, suicidal ideation Results Laboratory Results: 01/27/20 04:58 01/27/20 04:58 01/27/20 01/27/20 04:58 04:58 WBC 4.7 RBC 3.54 L Hgb 11.4 L Hct 32.4 L MCV 92 MCH 32.3 MCHC 35.3 RDW 13.7 Plt Count 161 Seg Neutrophils % 64.7 Sodium 136.4 L Potassium 3.8 Chloride 103 Carbon Dioxide 27 Anion Gap 6 BUN 13 Creatinine 0.71 Est GFR ( Amer) > 60 Glucose 92 Calcium 8.7 Impressions: Abdomen/Pelvis CT 01/24/20 17:06 IMPRESSION: 1. The findings as detailed above suggest appendicitis and mild phlegmon. The appendix appears to be retrocecal in location. Correlation suggested. Chest/Abdomen CTA 01/26/20 00:00 IMPRESSION: Dilute contrast bolus. No central pulmonary embolus. Imaging is degraded by patient motion, with resultant artifact. The best possible images were obtained. Dependent airspace disease mostly atelectasis. Small amount of free intraperitoneal air, postsurgical . Assessment and Plan - Diagnosis (1) Acute appendicitis Qualifiers: Acute appendicitis type: with localized peritonitis Appendicitis gangrene presence: without gangrene Appendicitis perforation presence: without perforation Appendicitis abscess presence: without abscess Qualified Code(s): K35.30 - Acute appendicitis with localized peritonitis, without perforation or gangrene Is this a current diagnosis for this admission?: Yes Plan: Because he has been on Xarelto, the plan is to admit him to the hospitalist service and put him on antibiotics and a heparin drip and then reevaluate him in a few days to see if he needs surgery at that point. We will put him on Rocephin and Flagyl. Clear liquids and medications only. Dr. Wade saw him in the ER and will be following him. 01/25/2020-surgical team is following the patient. Xarelto on hold, he is on heparin drip at this time. He is also receiving IV Rocephin and Flagyl at this time. He is n.p.o. as per the surgery. Case was discussed with Dr. García Leija for cardiology input. 01/26/2020-patient is going to the OR today for appendicectomy. Heparin drip will be on hold. Patient agreed and given the consent for appendicectomy today. 01/27/2020-status post successful appendicectomy yesterday. To start back on Xarelto today. Patient is complaining of abdominal distention bloating discomfort prefer to stay until tomorrow. (2) Atrial fibrillation status post cardioversion Is this a current diagnosis for this admission?: Yes Plan: Currently in a sinus rhythm. Admitting to telemetry. We will continue metop rolol. 01/25/2020-patient has history of atrial fibrillation on anticoagulation had a cardioversion was done at [facility] yesterday morning. Patient on heparin drip at this time Xarelto is on hold. 01/26/2020-patient has history of chronic longstanding atrial fibrillation status post cardioversion. On Xarelto, last dose of Xarelto is more than 48 hours ago. 01/27/2020-patient has history of chronic longstanding atrial fibrillation on Xarelto with recent cardioversion. Had a successful appendicectomy yesterday to restart on Xarelto today. (3) Chronic anticoagulation Is this a current diagnosis for this admission?: Yes Plan: Xarelto on hold, heparin drip initiated in case he needs surgery. 01/26/2020-patient is going to OR today for appendicectomy and heparin drip will be on hold. 07/29/2019-to start him on Xarelto for A. fib this evening. (4) Hypertension Qualifiers: Hypertension type: essential hypertension Qualified Code(s): I10 - Essential (primary) hypertension Is this a current diagnosis for this admission?: No Plan: Continue lisinopril and HCTZ. 01/25/2020-blood pressure today is 99/51. To hold antihypertensives and to start him on gentle IV hydration. 01/26/2020-latest blood pressure is 125/89. Stable. Blood pressure medications are on hold at this time. 01/27/2020-blood pressure today's 120/77. Stable. - Time Anticipated discharge: Home Within: within 24 hours
[2020-01-27] MEDS: DOCUSATE SODIUM 100 MG CAPSULE PO SCH ×2 (13:38→17:03)
[2020-01-27] MEDS: OXYCODONE-ACETAMINOPHEN 5-325 MG TABLET PO PRN (13:38)
[2020-01-27] MEDS ORDERED: MAGNESIUM CITRATE 296 ML BOTTLE PO ONE (14:00)
[2020-01-27 16:05] LABS: APPEARANCE,URINE CLEAR; BILIRUBIN,URINE NEGATIVE (NEGATIVE); COLOR,URINE YELLOW; GLUCOSE, URINE NEGATIVE (NEGATIVE); KETONES,URINE NEGATIVE (NEGATIVE); LEUKOCYTE ESTERASE,URINE TRACE (NEGATIVE); NITRITE,URINE NEGATIVE (NEGATIVE); PROTEIN,URINE NEGATIVE (NEGATIVE); URINE SPECIFIC GRAVITY 1.014; UROBILINOGEN,URINE NEGATIVE mg/dL (<2.0)
[2020-01-27] MEDS: RIVAROXABAN 10 MG TABLET PO SCH (17:03)
[2020-01-27] MEDS: ONDANSETRON HCL INJ/PF 4 MG/2 ML SDV IV PRN ×2 (18:14→22:24)
[2020-01-28] MEDS ORDERED: MELATONIN 5 MG TABLET PO ONE (01:15)
[2020-01-28] MEDS: OXYCODONE-ACETAMINOPHEN 5-325 MG TABLET PO PRN ×3 (02:01→17:49)
[2020-01-28] MEDS: ONDANSETRON HCL INJ/PF 4 MG/2 ML SDV IV PRN (05:40)
[2020-01-28] MEDS: HYDROMORPHONE HCL INJ/PF 2 MG/ML AMPULE IV PRN ×3 (05:40→20:53)
--- NOTE | 2020-01-28 08:13 | PDOC PROGRESS REPORT ---
Subjective Progress Note for:: 01/28/20 Subjective:: 54 year old male with a history of atrial fibrillation on chronic a nticoagulation, hypertension, remote history of Ftfqw-Tvaqunbhw-Ralqd status post ablation, and multiple orthopedic surgeries who has been treated for the past several months for atrial fibrillation and has been anticoagulated. He went for a cardioversion this morning. He said his abdominal pain started last night. It is in the right lower quadrant. He has not had any fevers but thinks he has had a couple of chills. He has not had any nausea, vomiting, or diarrhea. He called his primary care provider [facility] and they recommended him taking some laxatives, which he said provided no benefit. He also felt like he had some swelling on the left side of his abdomen. When it was not getting any better he decided to come to the ER to have it evaluated. His labs and vitals are all normal. He did have evidence of appendicitis on abdominal CT. Because he is on Xarelto, the decision was made to admit him to the medical service and place him on IV antibiotics and a heparin drip with surgery consulting. 01/25/2020-patient is still n.p.o. admitted for ascites. Patient has cardioversi on yesterday morning at [facility] and that he is on Xarelto. Last dose of Xarelto is yesterday morning. Patient is presently on IV heparin drip. Surgery on board. Discussed the case with Dr. García Leija he is going to see the patient from a cardiology perspective. Complaining of soreness in the abdomen. Comfortably in the bed communicating well. 01/26/2087-70-ncnf-old male admitted with appendicitis patient has a recent history of cardioversion for atrial fibrillation on Xarelto. At this moment patient is on IV heparin drip, Xarelto is on hold. Last dose of Xarelto is more than [address] da silva is planning to take him to the OR today. Requested the nurse to hold heparin for now. 01/27/[id number]-lstx-old male with history of A. fib on Xarelto with recent card ioversion admitted with appendicitis. Status post successful appendicectomy yesterday. To restart on Xarelto today. Patient is still complaining of abdominal distention and bloating prefer to stay until tomorrow. Not on heparin drip at this time. 01/28/2020-patient admitted with appendicitis status post appendicectomy. Passing gas. Able to tolerate the diet okay. His Xarelto was started back yesterday for A. fib. He has recent history of a cardioversion. Patient requesting to stay until tomorrow. In the meantime we will continue the present management. Antibiotics discontinued. Reason For Visit: ACUTE APPENDICITIS Physical Exam Vital Signs: Temp Pulse Resp BP Pulse Ox 98.3 F 51 L 14 116/62 98 01/27/20 23:53 01/28/20 07:00 01/27/20 23:53 01/27/20 23:53 01/27/20 23:53 Intake & Output 01/27/20 01/28/20 01/29/20 06:59 06:59 06:59 Intake Total 6063 3510 Output Total 115 100 Balance 5948 3410 Weight 115.3 kg 114.9 kg General appearance: PRESENT: no acute distress, well-developed Head exam: PRESENT: atraumatic Eye exam: PRESENT: PERRLA Mouth exam: PRESENT: moist, tongue midline Teeth exam: PRESENT: poor dentation Neck exam: ABSENT: carotid bruit, JVD, lymphadenopathy, thyromegaly Respiratory exam: PRESENT: unlabored Cardiovascular exam: PRESENT: RRR. ABSENT: diastolic murmur, rubs, systolic murmur Pulses: PRESENT: normal dorsalis pedis pul GI/Abdominal exam: PRESENT: normal bowel sounds, soft. ABSENT: distended, guarding, mass, organolmegaly, rebound, tenderness Rectal exam: PRESENT: deferred Extremities exam: PRESENT: full ROM. ABSENT: calf tenderness, clubbing, pedal edema Neurological exam: PRESENT: alert, awake, oriented to person, oriented to place, oriented to time, oriented to situation, CN II-XII grossly intact. ABSENT: motor sensory deficit Skin exam: PRESENT: dry, intact, warm. ABSENT: cyanosis, rash Results Laboratory Results: 01/27/20 04:58 01/27/20 04:58 01/27/20 15:45 Urine Color YELLOW Urine Appearance CLEAR Urine pH 5.0 Ur Specific [place] 1.014 Urine Protein NEGATIVE Urine Glucose (UA) NEGATIVE Urine Ketones NEGATIVE Urine Blood NEGATIVE Urine Nitrite NEGATIVE Ur Leukocyte Esterase TRACE H Urine WBC (Auto) 0 Urine RBC (Auto) 1 Impressions: Abdomen/Pelvis CT 01/24/20 17:06 IMPRESSION: 1. The findings as detailed above suggest appendicitis and mild phlegmon. The appendix appears to be retrocecal in location. Correlation suggested. Chest/Abdomen CTA 01/26/20 00:00 IMPRESSION: Dilute contrast bolus. No central pulmonary embolus. Imaging is degraded by patient motion, with resultant artifact. The best possible images were obtained. Dependent airspace disease mostly atelectasis. Small amount of free intraperitoneal air, postsurgical . Assessment and Plan - Diagnosis (1) Acute appendicitis Qualifiers: Acute appendicitis type: with localized peritonitis Appendicitis gangrene presence: without gangrene Appendicitis perforation presence: without perforation Appendicitis abscess presence: without abscess Qualified Code(s): K35.30 - Acute appendicitis with localized peritonitis, without perforation or gangrene Is this a current diagnosis for this admission?: Yes Plan: Because he has been on Xarelto, the plan is to admit him to the hospitalist service and put him on antibiotics and a heparin drip and then reevaluate him in a few days to see if he needs surgery at that point. We will put him on Rocephin and Flagyl. Clear liquids and medications only. Dr. Wade saw him in the ER and will be following him. 01/25/2020-surgical team is following the patient. Xarelto on hold, he is on heparin drip at this time. He is also receiving IV Rocephin and Flagyl at this time. He is n.p.o. as per the surgery. Case was discussed with Dr. García Leija for cardiology input. 01/26/2020-patient is going to the OR today for appendicectomy. Heparin drip will be on hold. Patient agreed and given the consent for appendicectomy today. 01/27/2020-status post successful appendicectomy yesterday. To start back on Xarelto today. Patient is complaining of abdominal distention bloating discomfort prefer to stay until tomorrow. 01/28/20-patient admitted with acute pancreatitis status post appendicectomy. Caroline barnes well. Surgery is following the patient regular basis. Patient is passing gas now and tolerated small amount of breakfast this morning. (2) Atrial fibrillation status post cardioversion Is this a current diagnosis for this admission?: Yes Plan: Currently in a sinus rhythm. Admitting to telemetry. We will continue metoprol ol. 01/25/2020-patient has history of atrial fibrillation on anticoagulation had a cardioversion was done at a [facility] yesterday morning. Patient on heparin drip at this time Xarelto is on hold. 01/26/2020-patient has history of chronic longstanding atrial fibrillation status post cardioversion. On Xarelto, last dose of Xarelto is more than 48 hours ago. 01/27/2020-patient has history of chronic longstanding atrial fibrillation on Xarelto with recent cardioversion. Had a successful appendicectomy yesterday to restart on Xarelto today. 01/28/2020-patient has history of chronic long-acting atrial fibrillation recent history of cardioversion on Xarelto. Xarelto is on hold for few days for appendicectomy it was started back yesterday. (3) Chronic anticoagulation Is this a current diagnosis for this admission?: Yes Plan: Xarelto on hold, heparin drip initiated in case he needs surgery. 01/26/2020-patient is going to OR today for appendicectomy and heparin drip will be on hold. 01/27/2020-to start him on Xarelto for A. fib this evening. 01/28/2020-patient in Xarelto since yesterday. (4) Hypertension Qualifiers: Hypertension type: essential hypertension Qualified Code(s): I10 - Essential (primary) hypertension Is this a current diagnosis for this admission?: No Plan: Continue lisinopril and HCTZ. 01/25/2020-blood pressure today is 99/51. To hold antihypertensives and to start him on gentle IV hydration. 01/26/2020-latest blood pressure is 125/89. Stable. Blood pressure medications are on hold at this time. 01/27/2020-blood pressure today's 120/77. Stable. - Time Anticipated discharge: Home Within: within 24 hours
[2020-01-28] MEDS: TRAMADOL HCL 50 MG TABLET PO SCH ×2 (09:13→21:11)
[2020-01-28] MEDS: DOCUSATE SODIUM 100 MG CAPSULE PO SCH ×2 (09:13→17:49)
[2020-01-28] MEDS: LISINOPRIL 10 MG TABLET PO SCH (09:13)
[2020-01-28] MEDS: HYDROCHLOROTHIAZIDE 25 MG TABLET PO SCH (09:14)
[2020-01-28] MEDS: METOPROLOL TARTRATE 50 MG TABLET PO SCH ×2 (09:14→21:11)
--- NOTE | 2020-01-28 10:34 | PDOC PROGRESS REPORT ---
Subjective Progress Note for:: 01/28/20 Subjective:: Feels better this morning less pains Reason For Visit: ACUTE APPENDICITIS Physical Exam Vital Signs: Temp Pulse Resp BP Pulse Ox 98.4 F 67 15 125/79 94 01/28/20 08:10 01/28/20 08:10 01/28/20 08:10 01/28/20 08:10 01/28/20 08:10 Intake & Output 01/27/20 01/28/20 01/29/20 06:59 06:59 06:59 Intake Total 6063 3510 Output Total 115 100 Balance 5948 3410 Weight 115.3 kg 114.9 kg Exam: Abdomen is soft with mild tenderness along the umbilical and left lower quadrant incision sites. Incisions appear to be clean and dry. Results Laboratory Results: 01/27/20 04:58 01/27/20 04:58 01/27/20 15:45 Urine Color YELLOW Urine Appearance CLEAR Urine pH 5.0 Ur Specific [place] 1.014 Urine Protein NEGATIVE Urine Glucose (UA) NEGATIVE Urine Ketones NEGATIVE Urine Blood NEGATIVE Urine Nitrite NEGATIVE Ur Leukocyte Esterase TRACE H Urine WBC (Auto) 0 Urine RBC (Auto) 1 Impressions: Abdomen/Pelvis CT 01/24/20 17:06 IMPRESSION: 1. The findings as detailed above suggest appendicitis and mild phlegmon. The appendix appears to be retrocecal in location. Correlation suggested. Chest/Abdomen CTA 01/26/20 00:00 IMPRESSION: Dilute contrast bolus. No central pulmonary embolus. Imaging is degraded by patient motion, with resultant artifact. The best possible images were obtained. Dependent airspace disease mostly atelectasis. Small amount of free intraperitoneal air, postsurgical . Assessment & Plan - Diagnosis (1) Acute appendicitis Qualifiers: Acute appendicitis type: with localized peritonitis Appendicitis gangrene presence: without gangrene Appendicitis perforation presence: without pe rforation Appendicitis abscess presence: without abscess Qualified Code(s): K35.30 - Acute appendicitis with localized peritonitis, without perforation or gangrene Is this a current diagnosis for this admission?: Yes (2) Atrial fibrillation status post cardioversion Is this a current diagnosis for this admission?: Yes - Time Critical Time spent with patient: 15-24 minutes - Plan Summary Plan Summary: Postop day #2 post laparoscopic appendectomy for acute appendicitis. Patient clinically improving with less pains. His white count yesterday was normal and tolerating regular diet today. Patient can be discharged later today remains stable continue to tolerate regular diet. Antibiotics not needed. Might need some narcotic medications p.o. because of pains likely from the CO2 insufflation which caused abdominal pain and right shoulder pains. We can follow-up the patient in the clinic in 2 weeks. Continue to advised not to do any heavy lifting more than 10 to 15 pounds in the next 2 weeks or until seen in the clinic
--- NOTE | 2020-01-28 13:32 | PDOC PROGRESS REPORT ---
Subjective Progress Note for:: 01/28/20 Subjective:: Patient resting in bed. Telemetry shows sinus rhythm. Status post laparoscopic appendectomy. Continues to endorse some abdominal discomfort. No chest pain or dyspnea. Reason For Visit: ACUTE APPENDICITIS Physical Exam Vital Signs: Temp Pulse Resp BP Pulse Ox 98.1 F 57 L 15 116/71 98 01/28/20 12:06 01/28/20 12:06 01/28/20 12:06 01/28/20 12:06 01/28/20 12:06 Intake & Output 01/27/20 01/28/20 01/29/20 06:59 06:59 06:59 Intake Total 6063 3510 Output Total 115 100 Balance 5948 3410 Weight 115.3 kg 114.9 kg General appearance: PRESENT: no acute distress, cooperative, well-developed, well-nourished Head exam: PRESENT: atraumatic, normocephalic Eye exam: PRESENT: conjunctiva pink, EOMI Mouth exam: PRESENT: moist Respiratory exam: PRESENT: symmetrical, unlabored Cardiovascular exam: PRESENT: RRR, +S1, +S2 GI/Abdominal exam: PRESENT: tenderness Musculoskeletal exam: PRESENT: normal inspection Neurological exam: PRESENT: alert, awake, oriented to person, oriented to place, oriented to time, oriented to situation Psychiatric exam: PRESENT: appropriate affect Skin exam: PRESENT: dry, intact Results Laboratory Results: 01/27/20 04:58 01/27/20 04:58 01/27/20 15:45 Urine Color YELLOW Urine Appearance CLEAR Urine pH 5.0 Ur Specific [place] 1.014 Urine Protein NEGATIVE Urine Glucose (UA) NEGATIVE Urine Ketones NEGATIVE Urine Blood NEGATIVE Urine Nitrite NEGATIVE Ur Leukocyte Esterase TRACE H Urine WBC (Auto) 0 Urine RBC (Auto) 1 Impressions: Abdomen/Pelvis CT 01/24/20 17:06 IMPRESSION: 1. The findings as detailed above suggest appendicitis and mild phlegmon. The appendix appears to be retrocecal in location. Correlation suggested. Chest/Abdomen CTA 01/26/20 00:00 IMPRESSION: Dilute contrast bolus. No central pulmonary embolus. Imaging is degraded by patient motion, with resultant artifact. The best possible images were obtained. Dependent airspace disease mostly atelectasis. Small amount of free intraperitoneal air, postsurgical . Assessment & Plan - Diagnosis (1) Acute appendicitis Qualifiers: Acute appendicitis type: with localized peritonitis Appendicitis gangrene presence: without gangrene Appendicitis perforation presence: without perforation Appendicitis abscess presence: without abscess Qualified Code(s): K35.30 - Acute appendicitis with localized peritonitis, without perforation or gangrene Is this a current diagnosis for this admission?: Yes Plan: Status post laparoscopic appendectomy Continues to endorse some mild abdominal discomfort. The surgical service is following. No further intervention is planned. (2) Atrial fibrillation status post cardioversion Is this a current diagnosis for this admission?: Yes Plan: Given recent cardioversion systemic anticoagulation with rivaroxaban 20 mg daily to be continued Continue metoprolol to suppress A. fib triggers. (3) Chronic anticoagulation Is this a current diagnosis for this admission?: Yes
[2020-01-28] MEDS: RIVAROXABAN 10 MG TABLET PO SCH (17:49)
[2020-01-28] MEDS ORDERED: MELATONIN 5 MG TABLET PO SCH (22:00)
[2020-01-29 08:38] VITALS: BP 125/89
[2020-01-29] MEDS: OXYCODONE-ACETAMINOPHEN 5-325 MG TABLET PO PRN (09:14)
[2020-01-29] MEDS: METOPROLOL TARTRATE 50 MG TABLET PO SCH (09:15)
[2020-01-29] MEDS: HYDROCHLOROTHIAZIDE 25 MG TABLET PO SCH (09:15)
[2020-01-29] MEDS: LISINOPRIL 10 MG TABLET PO SCH (09:15)
[2020-01-29] MEDS: DOCUSATE SODIUM 100 MG CAPSULE PO SCH (09:16)
[2020-01-29] MEDS: TRAMADOL HCL 50 MG TABLET PO SCH (09:16)
--- NOTE | 2020-01-29 13:13 | PDOC DISCHARGE SUMMARY ---
Impression - Admit/DC Date/PCP Admission Date/Primary Care Provider: 01/24/20 20:39 [facility] Discharge Date: 01/29/20 - Discharge Diagnosis (1) Acute appendicitis Is this a current diagnosis for this admission?: Yes (2) Atrial fibrillation status post cardioversion Is this a current diagnosis for this admission?: Yes (3) Chronic anticoagulation Is this a current diagnosis for this admission?: Yes (4) Hypertension Is this a current diagnosis for this admission?: No - Assessment Summary: (1) Acute appendicitis Qualifiers: Acute appendicitis type: with localized peritonitis Appendicitis gangrene presence: without gangrene Appendicitis perforation presence: without perforation Appendicitis abscess presence: without abscess Qualified Code(s): K35.30 - Acute appendicitis with localized peritonitis, without perforation or gangrene Is this a current diagnosis for this admission?: Yes Plan: Because he has been on Xarelto, the plan is to admit him to the hospitalist service and put him on antibiotics and a heparin drip and then reevaluate him in a few days to see if he needs surgery at that point. We will put him on Rocephin and Flagyl. Clear liquids and medications only. Dr. Wade saw him in the ER and will be following him. 01/25/2020-surgical team is following the patient. Xarelto on hold, he is on heparin drip at this time. He is also receiving IV Rocephin and Flagyl at this time. He is n.p.o. as per the surgery. Case was discussed with Dr. García Leija for cardiology input. 01/26/2020-patient is going to the OR today for appendicectomy. Heparin drip will be on hold. Patient agreed and given the consent for appendicectomy today. 01/27/2020-status post successful appendicectomy yesterday. To start back on Xarelto today. Patient is complaining of abdominal distention bloating discomfort prefer to stay until tomorrow. 01/28/20-patient admitted with acute pancreatitis status post appendicectomy. Doing well. Surgery is following the patient regular basis. Patient is passing gas now and tolerated small amount of breakfast this morning. 01/29/2020-patient doing well today has a bowel movements no complaints of abdominal pain. No postop complication noticed. He is back on Xarelto tolerating well. Agreed to go home today and follow-up with general surgery as an outpatient next week. (2) Atrial fibrillation status post cardioversion Is this a current diagnosis for this admission?: Yes Plan: Currently in a sinus rhythm. Admitting to telemetry. We will continue metoprolol. 01/25/2020-patient has history of atrial fibrillation on anticoagulation had a cardioversion was done at a [facility] [place] yesterday morning. Patient on heparin drip at this time Xarelto is on hold. 01/26/2020-patient has history of chronic longstanding atrial fibrillation status post cardioversion. On Xarelto, last dose of Xarelto is more than 48 hours ago. 01/27/2020-patient has history of chronic longstanding atrial fibrillation on Xarelto with recent cardioversion. Had a successful appendicectomy yesterday to restart on Xarelto today. 01/28/2020-patient has history of chronic long-acting atrial fibrillation recent history of cardioversion on Xarelto. Xarelto is on hold for few days for appendicectomy it was started back yesterday. 01/29/[id number]-hkeb-old male with history of A. fib with recent cardioversion on Xarelto admitted with acute appendicitis. On IV heparin. Prior to the surgery IV heparin was discontinued and has successful appendicectomy. Patient was started back on Xarelto yesterday and no complications noticed. Patient is doing well this morning agreed to go home and follow-up with his primary care and surgical team as an outpatient. (3) Chronic anticoagulation Is this a current diagnosis for this admission?: Yes Plan: Xarelto on hold, heparin drip initiated in case he needs surgery. 01/26/2020-patient is going to OR today for appendicectomy and heparin drip will be on hold. 01/27/2020-to start him on Xarelto for A. fib this evening. 01/28/2020-patient in Xarelto since yesterday. (4) Hypertension Qualifiers: Hypertension type: essential hypertension Qualified Code(s): I10 - Essential (primary) hypertension Is this a current diagnosis for this admission?: No Plan: Continue lisinopril and HCTZ. 01/25/2020-blood pressure today is 99/51. To hold antihypertensives and to start him on gentle IV hydration. 01/26/2020-latest blood pressure is 125/89. Stable. Blood pressure medications are on hold at this time. 01/27/2020-blood pressure today's 120/77. Stable. 01/29/2020-patient is on lisinopril/hydrochlorothiazide at home advised to continue the medication. Today's blood pressure is 123/73. - Time Anticipated discharge: Home Within: within 24 hours - Additional Information Resuscitation Status: Full Code Discharge Diet: Cardiac Discharge Activity: Activity As Tolerated, Balance Activity w/Rest, No Lifting Over 10 Pounds, No Lifting/Push/Pulling, Slowly Increase Activity Ref[facility]: [facility] [[facility]] - Follow up as needed ( The patient will make his own follow-up appointment.) Prescriptions: Oxycodone HCl/Acetaminophen [Oxycodone-Acetaminophen 10-325] 1 each PO Q6HP PRN 3 Days #10 tablet PRN Reason: Home Medications: Lisinopril/Hydrochlorothiazide [Lisinopril-Hctz 20-25 mg Tab] 1 each PO DAILY 01/25/20 Metoprolol Tartrate [Lopressor 50 mg Tablet] 50 mg PO Q12 01/25/20 Rivaroxaban [Xarelto] 20 mg PO DAILY 01/25/20 Tramadol HCl [Ultram 50 mg Tablet] 50 mg PO Q12 01/25/20 Oxycodone HCl/Acetaminophen [Oxycodone-Acetaminophen 10-325] 1 each PO Q6HP PRN 3 Days #10 tablet 01/29/20 History of Present Illiness History of Present Illness: MADDIE WALSH is a 54 year old male 54 year old male with a history of atrial fibrillation on chronic anticoagulation, hypertension, remote history of Usook-Yptkhnkxp-Lxcvt status post ablation, and multiple orthopedic surgeries who has been treated for the past several months for atrial fibrillation and has been anticoagulated. He went for a cardioversion this morning. He said his abdominal pain started last night. It is in the right lower quadrant. He has not had any fevers but thinks he has had a couple of chills. He has not had any nausea, vomiting, or diarrhea. He called his primary care provider at the [facility] and they recommended him taking some laxatives, which he said provided no benefit. He also felt like he had some swelling on the left side of his abdomen. When it was not getting any better he decided to come to the ER to have it evaluated. His labs and vitals are all normal. He did have evidence of appendicitis on abdominal CT. Because he is on Xarelto, the decision was made to admit him to the medical service and place him on IV antibiotics and a heparin drip with surgery consulting. Hospital Course Hospital Course: 54 year old male with a history of atrial fibrillation on chronic anticoagulation, hypertension, remote history of Squtl-Lrazbhkwv-Uoeqz status post ablation, and multiple orthopedic surgeries who has been treated for the past several months for atrial fibrillation and has been anticoagulated. He went for a cardioversion this morning. He said his abdominal pain started last night. It is in the right lower quadrant. He has not had any fevers but thinks he has had a couple of chills. He has not had any nausea, vomiting, or diarrhea. He called his primary care provider at the [facility] and they recommended him taking some laxatives, which he said provided no benefit. He also felt like he had some swelling on the left side of his abdomen. When it was not getting any better he decided to come to the ER to have it evaluated. His labs and vitals are all normal. He did have evidence of appendicitis on abdominal CT. Because he is on Xarelto, the decision was made to admit him to the medical service and place him on IV antibiotics and a heparin drip with surgery consulting. 01/25/2020-patient is still n.p.o. admitted for ascites. Patient has cardioversion yesterday morning at [facility] and that he is on Xarelto. Last dose of Xarelto is yesterday morning. Patient is presently on IV heparin drip. Surgery on board. Discussed the case with Dr. García Leija he is going to see the patient from a cardiology perspective. Complaining of soreness in the abdomen. Comfortably in the bed communicating well. 01/26/2020-76-roby-old male admitted with appendicitis patient has a recent history of cardioversion for atrial fibrillation on Xarelto. At this moment patient is on IV heparin drip, Xarelto is on hold. Last dose of Xarelto is more than [address] da silva is planning to take him to the OR today. Requested the nurse to hold heparin for now. 01/27/[id number]-kfli-old male with history of A. fib on Xarelto with recent cardioversion admitted with appendicitis. Status post successful appendicectomy yesterday. To restart on Xarelto today. Patient is still complaining of abdominal distention and bloating prefer to stay until tomorrow. Not on heparin drip at this time. 01/28/2020-patient admitted with appendicitis status post appendicectomy. Passing gas. Able to tolerate the diet okay. His Xarelto was started back yesterday for A. fib. He has recent history of a cardioversion. Patient requesting to stay until tomorrow. In the meantime we will continue the present management. Antibiotics discontinued. 01/29/[id number]-qomr-old male with history of atrial fibrillation and recent cardioversion on Xarelto admitted with acute pancreatitis. Initially Xarelto is on hold, started on IV heparin, cardiology consult was done surgical consult was done. Patient was taken to the OR for appendicectomy no postop complications noticed. He was back on Xarelto since yesterday. This morning he is doing well has good bowel movement denies any abdominal pains. He agreed to go home on Percocets he was advised to continue Xarelto as an outpatient. Physical Exam Vital Signs: Temp Pulse Resp BP Pulse Ox 97.9 F 58 L 16 125/89 H 99 01/29/20 08:35 01/29/20 08:35 01/29/20 08:35 01/29/20 08:35 01/29/20 08:35 Intake & Output 01/28/20 01/29/20 01/30/20 06:59 06:59 06:59 Intake Total 3510 1420 Output Total 100 0 Balance 3410 1420 Weight 114.9 kg 114.4 kg General appearance: PRESENT: no acute distress Head exam: PRESENT: atraumatic Eye exam: PRESENT: PERRLA Ear exam: PRESENT: normal external ear exam Mouth exam: PRESENT: moist, tongue midline Neck exam: ABSENT: carotid bruit, JVD, lymphadenopathy, thyromegaly Respiratory exam: PRESENT: decreased breath sounds Cardiovascular exam: PRESENT: RRR. ABSENT: diastolic murmur, rubs, systolic murmur Pulses: PRESENT: normal dorsalis pedis pul GI/Abdominal exam: PRESENT: normal bowel sounds, soft. ABSENT: distended, guarding, mass, organolmegaly, rebound, tenderness Rectal exam: PRESENT: deferred Extremities exam: PRESENT: full ROM. ABSENT: calf tenderness, clubbing, pedal edema Neurological exam: PRESENT: alert, awake, oriented to person, oriented to place, oriented to time, oriented to situation, CN II-XII grossly intact. ABSENT: motor sensory deficit Psychiatric exam: PRESENT: appropriate affect, normal mood. ABSENT: homicidal ideation, suicidal ideation Results Laboratory Results: WBC 4.7 10^3/uL (4.0-10.5) 01/27/20 04:58 RBC 3.54 10^6/uL (4.35-5.55) L 01/27/20 04:58 Hgb 11.4 g/dL (13.5-17.0) L 01/27/20 04:58 Hct 32.4 % (37.9-51.0) L 01/27/20 04:58 MCV 92 fl (80-97) 01/27/20 04:58 MCH 32.3 pg (27.0-33.4) 01/27/20 04:58 MCHC 35.3 g/dL (32.0-36.0) 01/27/20 04:58 RDW 13.7 % (11.5-14.0) 01/27/20 04:58 Plt Count 161 10^3/uL (150-450) 01/27/20 04:58 Lymph % (Auto) 22.9 % (13-45) 01/27/20 04:58 Antelope % (Auto) 7.7 % (3-13) 01/27/20 04:58 Eos % (Auto) 4.0 % (0-6) 01/27/20 04:58 Baso % (Auto) 0.7 % (0-2) 01/27/20 04:58 Absolute Neuts (auto) 3.0 10^3/uL (1.7-8.2) 01/27/20 04:58 Absolute Lymphs (auto) 1.1 10^3/uL (0.5-4.7) 01/27/20 04:58 Absolute Monos (auto) 0.4 10^3/uL (0.1-1.4) 01/27/20 04:58 Absolute Eos (auto) 0.2 10^3/uL (0.0-0.6) 01/27/20 04:58 Absolute Basos (auto) 0.0 10^3/uL (0.0-0.2) 01/27/20 04:58 Seg Neutrophils % 64.7 % (42-78) 01/27/20 04:58 PT 16.9 SEC (11.4-15.4) H 01/24/20 21:51 INR 1.36 01/24/20 21:51 APTT 32.4 SEC (23.5-35.8) 01/27/20 04:58 Sodium 136.4 mmol/L (137-145) L 01/27/20 04:58 Potassium 3.8 mmol/L (3.6-5.0) 01/27/20 04:58 Chloride 103 mmol/L (98-107) 01/27/20 04:58 Carbon Dioxide 27 mmol/L (22-30) 01/27/20 04:58 Anion Gap 6 (5-19) 01/27/20 04:58 BUN 13 mg/dL (7-20) 01/27/20 04:58 Creatinine 0.71 mg/dL (0.52-1.25) 01/27/20 04:58 Est GFR ( Amer) > 60 (>60) 01/27/20 04:58 Est GFR (MDRD) Non-Af > 60 (>60) 01/27/20 04:58 Glucose 92 mg/dL (75-110) 01/27/20 04:58 Lactic Acid 1.1 mmol/L (0.7-2.1) 01/24/20 19:55 Calcium 8.7 mg/dL (8.4-10.2) 01/27/20 04:58 Magnesium 2.0 mg/dL (1.6-2.3) 01/26/20 05:15 Total Bilirubin 0.6 mg/dL (0.2-1.3) 01/26/20 05:15 Direct Bilirubin 0.0 mg/dL (0.0-0.4) 01/26/20 05:15 Neonat Total Bilirubin Not Reportable 01/26/20 05:15 Neonat Direct Bilirubin Not Reportable 01/26/20 05:15 Neonat Indirect Bili Not Reportable 01/26/20 05:15 AST 29 U/L (17-59) 01/26/20 05:15 ALT 19 U/L (<50) 01/26/20 05:15 Alkaline Phosphatase 42 U/L (38-126) 01/26/20 05:15 Total Protein 6.2 g/dL (6.3-8.2) L 01/26/20 05:15 Albumin 3.6 g/dL (3.5-5.0) 01/26/20 05:15 Lipase 55.5 U/L (23-300) 01/24/20 17:29 Urine Color YELLOW 01/27/20 15:45 Urine Appearance CLEAR 01/27/20 15:45 Urine pH 5.0 (5.0-9.0) 01/27/20 15:45 Ur Specific [place] 1.014 01/27/20 15:45 Urine Protein NEGATIVE mg/dL (NEGATIVE) 01/27/20 15:45 Urine Glucose (UA) NEGATIVE mg/dL (NEGATIVE) 01/27/20 15:45 Urine Ketones NEGATIVE mg/dL (NEGATIVE) 01/27/20 15:45 Urine Blood NEGATIVE (NEGATIVE) 01/27/20 15:45 Urine Nitrite NEGATIVE (NEGATIVE) 01/27/20 15:45 Urine Bilirubin NEGATIVE (NEGATIVE) 01/27/20 15:45 Urine Urobilinogen NEGATIVE mg/dL (<2.0) 01/27/20 15:45 Ur Leukocyte Esterase TRACE (NEGATIVE) H 01/27/20 15:45 Urine WBC (Auto) 0 /HPF 01/27/20 15:45 Urine RBC (Auto) 1 /HPF 01/27/20 15:45 U Hyaline Cast (Auto) 1 /LPF 01/27/20 15:45 Squamous Epi Cells Auto <1 /HPF 01/27/20 15:45 Urine Mucus (Auto) RARE /LPF 01/27/20 15:45 Urine Ascorbic Acid NEGATIVE (NEGATIVE) 01/27/20 15:45 SARS-CoV-2 (PCR) NEGATIVE (NEGATIVE) 01/24/20 20:43 Impressions: Abdomen/Pelvis CT 01/24/20 17:06 IMPRESSION: 1. The findings as detailed above suggest appendicitis and mild phlegmon. The appendix appears to be retrocecal in location. Correlation suggested. Chest/Abdomen CTA 01/26/20 00:00 IMPRESSION: Dilute contrast bolus. No central pulmonary embolus. Imaging is degraded by patient motion, with resultant artifact. The best possible images were obtained. Dependent airspace disease mostly atelectasis. Small amount of free intraperitoneal air, postsurgical . Plan Plan of Treatment: Patient is advised to follow-up with PCP, also with surgical team next week. Advised to restart Xarelto from tonight. Time Spent: Greater than 30 Minutes Stroke Is this a Stroke Patient?: No Acute Heart Failure - Is this a Heart Failure Patient?: No
== END 2020-01-29 09:32 | disposition home or self-care (01) | DRG 342 ==
LOC: ER 15:46 → EH 20:39 → 3W 01-25 00:36
PROVIDERS: ADMIT Family Medicine; ATTEND Internal Medicine
PROC: 0DTJ4ZZ Resection of Appendix, Percutaneous Endoscopic Approach (ICD-10-PCS; principal; 2020-01-26 12:00)
DX: K35.30 Acute appendicitis with localized peritonitis, without perforation or gangrene (principal); I48.11 Longstanding persistent atrial fibrillation; I10 Essential (primary) hypertension; I45.6 Pre-excitation syndrome; M19.90 Unspecified osteoarthritis, unspecified site; Z79.899 Other long term (current) drug therapy; Z79.01 Long term (current) use of anticoagulants; I25.2 Old myocardial infarction; Z87.891 Personal history of nicotine dependence; Z03.818 Encounter for observation for suspected exposure to other biological agents ruled out; Z98.890 Other specified postprocedural states
CPT/HCPCS: 36415; 71275; 74177; 80048; 80053; 81001; 83605; 83690; 83735; 840; 85025; 85610; 85730; 87040; 87635; 88304; 93005; 93010; 96361; 96374; 96375; 96376; 99285; C9803; J0330; J0696; J1170; J1644; J1885; J2250; J2270; J2405; J2704; J3010; J3490; J7030; J7120